=== PATIENT | female | born 1975 | race Caucasian/White ===

== ENCOUNTER 2020-11-08 15:26 | Outpatient (REF) | payer OTHER, SELFPAY | END 2020-11-08 15:27 | disposition home or self-care (01) | LOC: HO.LAB 15:26 | PROVIDERS: Visit Provider Internal Medicine | DX: Z20.822 Contact with and (suspected) exposure to COVID-19 (principal) | CPT/HCPCS: C9803; U0003; U0005 ==

== ENCOUNTER 2021-03-17 11:56 | Outpatient (REF) | payer OTHER, SELFPAY | END 2021-03-17 11:57 | disposition home or self-care (01) | LOC: HO.LAB 11:56 | PROVIDERS: Visit Provider Internal Medicine | DX: Z20.822 Contact with and (suspected) exposure to COVID-19 (principal) | CPT/HCPCS: C9803; U0003; U0005 ==

== ENCOUNTER 2023-07-23 11:42 | Emergency (ER) | payer MEDICAID, SELFPAY ==
--- NOTE | ~2023-07-23 | CT_ITS ---
EXAMINATION: CT ABDOMEN AND PELVIS WITH CONTRAST CLINICAL INFORMATION: Abdominal pain COMPARISON: None available. TECHNIQUE: Multidetector volumetric images were obtained from the superior aspect of the liver through the pubic symphysis following administration 85 mL of Omnipaque 350 intravenous contrast. Sagittal and coronal reformatted images were obtained on the technologist's workstation. Oral contrast: No This CT examination was performed using dose optimization techniques as appropriate, variously including the following: *Automated exposure control *Adjustment of mA and/or kV according to patient size (this includes techniques or standardized protocols for targeted exams where dose is matched to indication/reason for exam; i.e. extremities or head) *Use of iterative reconstruction technique DLP: 497 mGy-cm FINDINGS: LUNG BASES: The visualized lung bases are unremarkable. LIVER, GALLBLADDER, AND BILIARY TREE: The liver is normal in size, shape, and attenuation. No focal hepatic lesion or biliary ductal dilatation is present. The gallbladder is unremarkable with no evidence of radiopaque gallstones, gallbladder wall thickening, or obvious pericholecystic inflammatory changes. PANCREAS: Unremarkable. SPLEEN: Unremarkable. ADRENAL GLANDS: Unremarkable. KIDNEYS AND URETERS: The kidneys are normal in size, shape, and attenuation. No hydronephrosis, hydroureter, or calculi seen. No perinephric stranding. BLADDER: Unremarkable. GASTROINTESTINAL TRACT: Equivocal focal area of circumferential narrowing within the ascending colon just distal to the ileocecal valve. Although of low suspicion, recommend lower GI assessment for further evaluation if this has not been performed recently. ABDOMINAL WALL: No significant hernia is appreciated. LYMPH NODES: Normal. VASCULAR: Unremarkable. PELVIC VISCERA: Unremarkable. OSSEOUS STRUCTURES: Unremarkable. CT/CT abdomen pelvis w IV con IMPRESSION: 1. No specific findings to explain patient's symptoms. 2. Equivocal focal area of focal circumferential narrowing within the ascending colon just distal to the ileocecal valve. Although of low suspicion, recommend lower GI assessment for further evaluation if this has not been performed recently. Fleischner guidelines were followed.
[2023-07-23 11:45] VITALS: BP 188/103; PULSE 114; RESP 18; TEMP 37; O2SAT 99; BMI 27.1
--- NOTE | 2023-07-23 11:46 | ED.GENADULT ---
HPI - General Adult General Chief complaint: Abdominal Pain Stated complaint: abd pain, vomiting Time Seen by Provider: 07/23/23 11:50 Related Data Previous Rx's Medication Instructions Recorded ondansetron 4 mg disintegrating 4 mg PO TID PRN nausea and 07/23/23 tablet vomiting 5 days #10 tabs ondansetron 4 mg disintegrating 4 mg PO TID PRN nausea and 07/23/23 tablet vomiting 5 days #10 tabs Allergies Allergy/AdvReac Type Severity Reaction Status Date / Time clams Allergy Severe ANAPHYLAXIS Verified 07/23/23 14:45 insulin lispro [From HUMALOG] Allergy Unknown HIVES Verified 07/23/23 14:45 liraglutide [From VICTOZA] Allergy Unknown VOMIT Verified 07/23/23 14:45 DI[facility]A [facility] Allergy Intermediate HAYFEVER Uncoded 04/18/20 15:17 clam Allergy Unknown Unknown Uncoded 07/23/23 14:45 pollen Allergy Unknown Unknown Uncoded 07/23/23 14:45 salmon Allergy Unknown Unknown Uncoded 07/23/23 14:45 [facility] Social History Social History Smoked in Last 30 Days: No Use of substances other than those prescribed or required for medical reasons: Yes Substance Use Type: Marijuana Substance Use Frequency: Daily Any prior treatment program specific to substance use: No Advance Directives: No Advance Directives Information Provided: No Physical Exam ED Vital Signs: Vital Signs - 24 hr 07/23/23 11:45 07/23/23 14:00 Temperature 98.6 F 99.2 F Pulse Rate 114 H 76 Respiratory Rate 18 16 Blood Pressure 188/103 H 145/78 H Pulse Oximetry 99 100 Oxygen Delivery Method Room Air Room Air BMI result Body Mass Index 27.1 Course Course Course Narrative: RME performed by Radha Bell PA-C. Patient is a 48 year old assigned female at presenting to the emergency department with nausea and vomiting. Patient states that she is having hot and cold flashes, is on her period. Patient states that she as seen at [place] for this 2 days ago and was discharged. Patient states that she is dealing with high anxiety and H.Pylori. Labs and swabs ordered. Patient placed back in the waiting room pending room availability and results. Patient seen by Dr. Bowser who created his own note. Please refer to his note from 07/23/2023. Medications Administered Discontinued Medications Generic Name Dose Route Start Last Admin Trade Name Ziggy PRN Reason Stop Dose Admin Droperidol 0.625 mg 07/23/23 12:44 07/23/23 12:53 Droperidol 5 Mg/2 Ml Vial IVPUSH 07/23/23 12:45 0.625 mg ONCE ONE Administration Sodium Chloride 1,000 mls @ 999 mls/hr 07/23/23 12:45 07/23/23 14:50 Ns IV 07/23/23 13:45 Infused .Q1H1M SHERRY Infusion Sodium Chloride 1,000 mls @ 999 mls/hr 07/23/23 12:45 07/23/23 14:50 Ns IV 07/23/23 13:45 Infused .Q1H1M SHERRY Infusion Ketorolac Tromethamine 30 mg 07/23/23 12:38 07/23/23 12:53 Ketorolac Tromethamine 30 Mg/Ml Vial IVPUSH 07/23/23 12:39 30 mg ONCE ONE Administration Medical Decision Making Lab Data 07/23/23 12:16 07/23/23 12:16 Labs: Lab Results 07/23/23 07/23/23 07/23/23 Range/Units 12:16 12:17 12:47 WBC 13.2 H (4.8-10.8) X10*3/uL RBC 4.82 (4.20-5.50) X10*6/uL Hgb 12.8 (12.0-16.0) g/dl Hct 38.3 (37.0-47.0) % MCV 79.5 L (80.0-98.0) fL MCH 26.6 L (27.0-33.0) pg MCHC 33.4 (31.0-35.0) g/dl RDW 14.2 (11.0-16.0) % Plt Count 319 (160-400) X10*3/uL MPV 9.8 (9.4-12.3) fL Immature Gran % (Auto) 0.5 H (0.0-0.4) % Neut % (Auto) 81.2 H (45-73) % Lymph % (Auto) 12.0 L (20-40) % Archuleta % (Auto) 5.9 (2-11) % Eos % (Auto) 0.1 (0-4) % Baso % (Auto) 0.3 (0-2) % Lymph # (Auto) 1.6 (1.2-4.9) X10*3/uL [place] # (Auto) 0.8 (0.1-1.2) X10*3/uL Eos # (Auto) 0.0 (0.0-0.4) X10*3/uL Baso # (Auto) 0.0 (0.0-0.2) X10*3/uL Abs Immat Gran (auto) 0.07 H (0.00-0.03) X10*3/uL Absolute Neuts (auto) 10.7 H (2.0-8.3) x10*3/uL Absolute Nucleated RBC 0.000 (0.0-0.012) X10*3/uL Nucleated RBC % (auto) 0.0 (0.0-0.2) /100WBC PT 12.4 (11.1-13.3) SEC INR 1.0 (0.9-1.1) APTT 27.2 (26.0-36.4) SEC Sodium 137 (135-145) mmol/L Potassium 3.0 L (3.3-5.1) mmol/L Chloride 97 (96-108) mmol/L Carbon Dioxide 26 (22-29) mmol/L Anion Gap 17 (12-20) BUN 11 (9-16) mg/dL Creatinine 1.12 (0.5-1.4) mg/dL Estim Creat Clear Calc 60.2 Estimated GFR 52 Random Glucose 170 H (60-115) mg/dL Calcium 9.3 (8.4-10.2) mg/dL Magnesium 2.0 (1.6-2.6) mg/dL Total Bilirubin 1.0 (0.0-1.0) mg/dL AST 16 (5-31) U/L ALT 11 (0-31) U/L Alkaline Phosphatase 73 (39-117) U/L Total Protein 8.0 (6.5-8.0) g/dL Albumin 4.8 (3.5-5.0) g/dL Urine Color RED Urine Appearance Turbid Urine pH 6.5 (5.0-9.0) Ur Specific [place] 1.020 (1.005-1.025) Urine Protein 300 (3+) H (Neg-Trace) mg/dL Urine Glucose (UA) 250 H (Negative) mg/dL Urine Ketones Trace (Negative) mg/dL Urine Blood Large (3+) H (Negative) Urine Nitrite Positive H (Negative) Ur Leukocyte Esterase Moderate (2+) H (Negative) Urine RBC >20 H (0-2) /HPF Urine WBC 0-5 (0-5) /HPF Ur Squamous Epith Cells 0-2 (0-2) /HPF Urine Bacteria Trace (None Seen) Hyaline Casts 0-2 (0-2) /LPF Urine Test NEGATIVE (NEGATIVE) Urine Opiates Screen Not Detected (Not Detect) Urine Fentanyl Screen Not Detected (Not Detect) Ur Barbiturates Screen Not Detected (Not Detect) Ur Phencyclidine Scrn Not Detected (Not Detect) Ur Amphetamines Screen Not Detected (Not Detect) U Benzodiazepines Scrn Not Detected (Not Detect) Urine Cocaine Screen Not Detected (Not Detect) U Marijuana (THC) Screen POSITIVE H (Not Detect) Influenza Type A (PCR) NEGATIVE (Negative) Influenza Type B (PCR) NEGATIVE (Negative) RSV RNA Qual (PCR) NEGATIVE (Negative) SARS-CoV-2 RNA (RT-PCR) NEGATIVE (Negative) Discharge Plan Discharge Clinical Impression: Hyperemesis Patient Disposition: Home, Self-Care Instructions: Acute Nausea and Vomiting (ED) Additional Instructions: Please stop using marijuana. Prescriptions: New ondansetron 4 mg tablet,disintegrating 4 mg PO TID PRN (Reason: nausea and vomiting) 5 Days Qty: 10 0RF ondansetron 4 mg tablet,disintegrating 4 mg PO TID PRN (Reason: nausea and vomiting) 5 Days Qty: 10 0RF Referrals: Physician,Unknown J [Primary Care Provider] - 07/26/23 Stand Alone Forms: Work/School Release Interventions: ED Discharge Assessment Last Done: 07/23/23 15:34 Discharge Date/Time: 07/23/23 15:34
--- OUTSIDE RECORDS SUMMARY | 2023-07-23 12:21 | XMS_ITS | Continuity of Care Document ---
Author Name Unknown Organization [facility] Address [address] [place] [address]- Care Team Providers Care Enrollment Management Manager Name Role Phone Cece Lund Primary Care Physician [phone] Encounter [facility] [place] Date(s): 09/04/22 - 12/02/[address] [address]- Attending Physician: Heidy Chris MD Admitting Physician: Heidy Chris MD Allergies, Adverse Reactions, Alerts Substance Reaction Severity Status HumaLOG Hives Active Victoza Vomiting Active Medications ondansetron 4 mg oral tablet 1 tablet = 4 mg, By Mouth, Every 8 hours, PRN as needed for nausea/vomiting, # 9 tablet, 0 Refills,Maintenance, 09/24/22 10:57:00 EST, Tablet, Partial fill upon patient request if the prescription is for a schedule II opioid drug. Start Date: 09/24/22 Status: Ordered pantoprazole 40 mg oral delayed release tablet = 40 mg, By Mouth, Daily, # 30 tablet, 0 Refills, Maintenance, 09/12/22 10:01:00 EST, EC Tablet, 163, cm, 09/12/22 7:34:00 EST, Height, 64, kg, 09/09/22 17:13:00 EST, Dry Weight Start Date: 09/12/22 Stop Date: 10/12/22 Status: Ordered Remeron 15 mg oral tablet 1 tablet = 15 mg, By Mouth, Daily at bedtime, # 30 tablet, 0 Refills, Maintenance, 09/12/22 10:08:00 EST, Tablet, [facility], Partial fill upon patient request if the prescription is for a schedule II opioid drug., 163, cm, 09/12/22 7:34... Start Date: 09/12/22 Stop Date: 10/12/22 Status: Ordered Trulance 3 mg oral tablet 1 tablet = 3 mg, By Mouth, Daily, 0 Refills, Maintenance, 09/12/22 10:00:00 EST, Partial fill upon patient request if the prescription is for a schedule II opioid drug. Start Date: 09/12/22 Status: Ordered Ventolin HFA 108 mcg/inh inhalation aerosol with adapter 2 puffs, Inhalation, Every 4 hours, PRN for wheezing, prn, # 18 Gm, 0 Refills, Maintenance, 10/01/22 15:05:00 EST, Aerosol, Partial fill upon patient request if the prescription is for a schedule II opioid drug. Start Date: 10/01/22 Status: Ordered Problem List Condition Confirmation Course Effective Dates Status Health St atus Informant Asthma Confirmed Active Chronic vomiting Confirmed Active Dysphagia Confirmed Active Diabetes mellitus, type II, insulin dependent Confirmed Active Nasal congestion Confirmed Active STEVE (obstructive sleep apnea) Confirmed Active Seasonal allergies Confirmed Active Social History Social History Type Response Smoking Status Current some day smo ker; Type: Cigarettes entered on: 04/14/17 Sex Patient Care team information Care Team Personnel Name: Aaron Gonzalez RN Position: [facility] RN Member Role: Primary Care Nurse Name: Damon Whitaker RN Position: [facility] RN Member Role: Primary Care Nurse Name: Zaida Noriega RN Position: S RN Member Role: Primary Care Nurse Name: Idania Sagastume RN Position: [facility] RN Supv Member Role: Primary Care Nurse Name: Cece Lund Position: [facility] Associate Professional Member Role: PCP Address: Address: [address] [place] [address] Name: Zoë Hastings Position: S Outreach Member Role: Lifetime Consulting Physician Name: Renee Mckeon RN Position: S RN Supv Member Role: Primary Care Nurse Name: Pamela Castellano RN Position: S RN Member Role: Primary Care Nurse Name: Vidya Zhu RN Position: S RN Member Role: Primary Care Nurse Name: Patricia Curtis RN Position: S RN Member Role: Primary Care Nurse Name: Jeanne Ray Position: S Outreach Member Role: Lifetime Consulting Physician Care Team Related Persons Name: JJ FLETCHER Address: [place] [address] Name: AARON WIN Address: [place] [address] Name: CHARLENE TANG Address: home [address] [place] [address] Name: CORTEZ JOSUE Address: [place] [address] Name: ANGELIQUE BROWN Address: [place] [address]
--- OUTSIDE RECORDS SUMMARY | 2023-07-23 12:21 | XMS_ITS | Continuity of Care Document ---
Author Name Unknown Organization [facility] Address [address] [place] [address]- Care Team Providers Care Plastic Injection Mold Maker Name Role Phone Cece Lund Primary Care Physician Encounter [facility] [place] [place] Date(s): 07/01/21 - 07/31/21 [facility] [address] [place] [id number] Allergies, Adverse Reactions, Alerts Substance Reaction Severity Status HumaLOG Hives Active Victoza Vomiting Active Medications albuterol CFC free 90 mcg/inh inhalation aerosol 2, puffs, Inhalation, 4 times a day, PRN, # 1 each, Refills 3, Tot. Refills 3, Maintenance, 11/19/20 9:39:00 EDT, Aerosol, Route to Pharmacy Electronically, [id number], [facility], 162, cm, 11/19/20 8:17:00 EDT,... Start Date: 11/19/20 Stop Date: 03/19/21 Status: Ordered Flonase 50 mcg/inh nasal spray 1 sprays, Nares, Both, 2 times a day, # 16 Gm, 0 Refills, Maintenance, 10/11/18 9:43:36 EDT, [place] Start Date: 10/11/18 Status: Ordered Insulin Lispro 2-10 units, Subcutaneous Injection, 3 times a day before meals, << Sliding Scale Comments >> 150 - 199 2 units Call if less than 100 200 - 249 4 units 250 - 299 6 units 300 - 349 8 units 350 - 399 10 units Call if greater than 400 <... Start Date: 11/19/20 Status: Ordered Lantus Solostar Pen 100 units/mL subcutaneous solution = 25 units, Subcutaneous Injection, Daily at bedtime, # 10 mL, 0 Refills, Maintenance, 02/20/20 11:38:00 EDT, Solution, [facility] #[id number], 162, cm, 02/20/20 8:43:00 EDT, Height, 71.85, kg, 02/19/20 2:51:00 EDT, Dry Weight Start Date: 02/20/20 Status: Ordered Milk of Magnesia 8% oral suspension 30 mL = 2.4 Gm, By Mouth, Daily at bedtime, PRN for constipation, # 300 mL, 0 Refills, Maintenance,11/19/20 9:40:00 EDT, Suspension, [facility], Partial fill upon patient request if the prescription is for a schedule II opioid drug., 16... Start Date: 11/19/20 Status: Ordered ondansetron 4 mg oral tablet 1 tablet = 4 mg, By Mouth, Every 8 hours, PRN as needed for nausea/vomiting, # 10 tablet, 0 Refills, Maintenance, 04/20/20 16:58:00 EDT, Tablet, [facility] #[id number], 162, cm, 03/07/20 15:35:00 EDT, Height, 71.85, kg, 02/19/20 2:51:00 EDT, Dry... Start Date: 04/20/20 Status: Ordered Singulair By Mouth, Daily, 0 Refills, Maintenance, 04/14/17 10:42:53 Start Date: 04/14/17 Status: Ordered Problem List Condition Effective Dates Status Health Status Inform ant Asthma(Confirmed) Active Chronic vomiting(Confirmed) Active Dysphagia(Confirmed) Active Diabetes mellitus, type II, insulin dependent(Confirmed) Active Seasonal allergies(Confirmed) Active Social History Social History Type Response Smoking Status Current some day smo ker; Type: Cigarettes entered on: 04/14/17 Sex
--- OUTSIDE RECORDS SUMMARY | 2023-07-23 12:21 | XMS_ITS | Continuity of Care Document ---
Author Name Unknown Organization [facility] Address [address] [place] [address]- Care Team Providers Care Sand Miller Name Role Phone Cece Lund Primary Care Physician Encounter [facility] [place] Date(s): 09/29/21 - 10/29/[address] [address] Attending Physician: Marbella Watkins Admitting Physician: AdmtrMarbella Referring Physician: AdmtrMarbella Allergies, Adverse Reactions, Alerts Substance Reaction Severity Status HumaLOG Hives Active Victoza Vomiting Active Medications albuterol CFC free 90 mcg/inh inhalation aerosol 2, puffs, Inhalation, 4 times a day, PRN, # 1 each, Refills 3, Tot. Refills 3, Maintenance, 11/19/20 9:39:00 EDT, Aerosol, Route to Pharmacy Electronically, [id number], [facility], 162, cm, 11/19/20 8:17:00 EDT,... Start Date: 11/19/20 Stop Date: 03/19/21 Status: Ordered Diflucan 150 mg oral tablet 1 tablet = 150 mg, By Mouth, Once, Take on WednesdayAugust 25, # 1 tablet, 0 Refills, Soft Stop, 08/22/21 23:40:00 EST, Tablet, [facility][id number], Partial fill upon patient request if the prescription is for a schedule II opioid drug., 163,... Start Date: 08/22/21 Status: Ordered erythromycin ethylsuccinate 200 mg/5 ml oral suspension 5 mL = 200 mg, By Mouth, Every 8 hours, for 10 days, # 150 mL, 0 Refills, Acute 11/08/21 20:36:00 EDT, 10/29/21 20:36:00 EDT, Suspension, [facility][id number], Partial fill upon patient request if the prescription is for a schedule II opioid dr... Start Date: 10/29/21 Stop Date: 11/08/21 Status: Ordered Flonase 50 mcg/inh nasal spray 1 sprays, Nares, Both, 2 times a day, # 16 Gm, 0 Refills, Maintenance, 10/11/18 9:43:36 EDT, [place] Start Date: 10/11/18 Status: Ordered Insulin Lispro 2-10 units, Subcutaneous Injection, 3 times a day before meals, << Sliding Scale Comments >> 150 - 199 2 units Call if less than 100 200 - 249 4 units 250 - 299 6 units 300 - 349 8 units 350 - 399 10 units Call if greater than 400 <... Start Date: 11/19/20 Status: Ordered ipratropium nasal 21 mcg/inh spray 1 sprays, Nares, Both, Daily at bedtime, # 30 mL, 1 Refills, Maintenance, 09/29/21 12:07:00 EST, [facility] #[id number], Partial fill upon patient request if the prescription is for a schedule II opioid drug., 1 sprays Nares, Both Daily at bedtim... Start Date: 09/29/21 Status: Ordered Lantus Solostar Pen 100 units/mL subcutaneous solution = 25 units, Subcutaneous Injection, Daily at bedtime, # 10 mL, 0 Refills, Maintenance, 02/20/20 11:38:00 EDT, Solution, [facility] #[id number], 162, cm, 02/20/20 8:43:00 EDT, Height, 71.85, kg, 02/19/20 2:51:00 EDT, Dry Weight Start Date: 02/20/20 Status: Ordered Milk of Magnesia 8% oral suspension 30 mL = 2.4 Gm, By Mouth, Daily at bedtime, PRN for constipation, # 300 mL, 0 Refills, Maintenance,11/19/20 9:40:00 EDT, Suspension, [facility], Partial fill upon patient request if the prescription is for a schedule II opioid drug., 16... Start Date: 11/19/20 Status: Ordered ondansetron 4 mg oral tablet 1 tablet = 4 mg, By Mouth, Every 8 hours, PRN as needed for nausea/vomiting, # 10 tablet, 0 Refills, Maintenance, 04/20/20 16:58:00 EDT, Tablet, [facility][id number], 162, cm, 03/07/20 15:35:00 EDT, Height, 71.85, kg, 02/19/20 2:51:00 EDT, Dry... Start Date: 04/20/20 Status: Ordered Singulair By Mouth, Daily, 0 Refills, Maintenance, 04/14/17 10:42:53 Start Date: 04/14/17 Status: Ordered Problem List Condition Effective Dates Status Health Status Inform ant Asthma(Confirmed) Active Chronic vomiting(Confirmed) Active Dysphagia(Confirmed) Active Diabetes mellitus, type II, insulin dependent(Confirmed) Active Nasal congestion(Confirmed) Active STEVE (obstructive sleep apnea)(Confirmed) Active Seasonal allergies(Confirmed) Active Social History Social History Type Response Smoking Status Current some day smo ker; Type: Cigarettes entered on: 04/14/17 Sex
--- OUTSIDE RECORDS SUMMARY | 2023-07-23 12:21 | XMS_ITS | Continuity of Care Document ---
Author Name Unknown Organization [facility] Address [address] [place] [address]- Care Team Providers Care Founder And Chief Technical Officer Name Role Phone Cece Lund Primary Care Physician [place] [facility] [place]s): 02/11/22 - 03/13/22 [facility] [address] [place] [address] Attending Physician: Admtr, Ar8 Admitting Physician: Admtr, Ar8 Referring Physician: Admtr, Ar8 Allergies, Adverse Reactions, Alerts Substance Reaction Severity Status HumaLOG Hives Active Victoza Vomiting Active Medications albuterol CFC free 90 mcg/inh inhalation aerosol 2, puffs, Inhalation, 4 times a day, PRN, # 1 each, Refills 3, Tot. Refills 3, Maintenance, 11/19/20 9:39:00 EDT, Aerosol, Route to Pharmacy Electronically, [id number], [facility], 162, cm, 11/19/20 8:17:00 EDT,... Start Date: 11/19/20 Stop Date: 03/19/21 Status: Ordered ipratropium nasal 21 mcg/inh spray 1 sprays, Nares, Both, Daily at bedtime, # 30 mL, 1 Refills, Maintenance, 09/29/21 12:07:00 [id number], Partial fill upon patient request if the prescription is for a schedule II opioid drug., 1 sprays Nares, Both Daily at bedtim... Start Date: 09/29/21 Status: Ordered metoclopramide 5 mg oral tablet TAKE 1 TABLET BY MOUTH FOUR TIMES DAILY Start Date: 12/16/21 Status: Ordered Milk of Magnesia 8% oral suspension 30 mL = 2.4 Gm, By Mouth, Daily at bedtime, PRN for constipation, # 300 mL, 0 Refills, Maintenance,11/19/20 9:40:00 EDT, Suspension, [facility], Partial fill upon patient request if the prescription is for a schedule II opioid drug., 16... Start Date: 11/19/20 Status: Ordered ondansetron 4 mg oral tablet 1 tablet = 4 mg, By Mouth, Every 8 hours, PRN as needed for nausea/vomiting, # 10 tablet, 0 Refills, Maintenance, 04/20/20 16:58:00 EDT, Tablet, [facility][id number], 162, cm, 03/07/20 15:35:00 EDT, Height, 71.85, kg, 02/19/20 2:51:00 EDT, Dry... Start Date: 04/20/20 Status: Ordered prochlorperazine 25 mg rectal suppository UNWRAP AND INSERT 1 SUPPOSITORY RECTALLY TWICE DAILY NEEDED FOR NAUSEA OR VOMITING Start Date: 12/16/21 Status: Ordered Protonix 20 mg oral delayed release tablet 2 tablet = 40 mg, By Mouth, Daily, 0 Refills, Maintenance, 12/15/21 19:49:00 EDT Start Date: 12/15/21 Status: Ordered Singulair By Mouth, Daily, 0 [...]
--- OUTSIDE RECORDS SUMMARY | 2023-07-23 12:21 | XMS_ITS | Continuity of Care Document ---
Author Name Unknown Organization [facility] Address [address] [place] [address]- Care Team Providers Care Agility Instructor Name Role Phone Cece Lund Primary Care Physician Encounter [facility] [place] [facility] R [id number] Date(s): 02/18/20 - 02/20/[address] [address]- [facility] Encounter Diagnosis DKA (diabetic ketoacidosis)(Final) - 02/18/20 Discharge Disposition: A-D/C Home Attending Physician: Mariela Canales MD Admitting Physician: Elham Coker DO Referring Physician: Not on Staff, Referring MD Allergies, Adverse Reactions, Alerts Substance Reaction Severity Status HumaLOG Hives Active Victoza Vomiting Active Medications albuterol 0.083% inhalation solution 3 mL = 2.5 mg, Inhalation, Every 6 hours, # 60 each, 0 Refills, Maintenance, 03/10/16 16:28:31, Solution Start Date: 03/10/16 Status: Ordered Flonase 50 mcg/inh nasal spray 1 sprays, Nares, Both, 2 times a day, # 16 Gm, 0 Refills, Maintenance, 10/11/18 9:43:36 EDT, [place] Start Date: 10/11/18 Status: Ordered Lantus Solostar Pen 100 units/mL subcutaneous solution = 60 units, Subcutaneous Injection, Daily at bedtime, # 10 mL, 0 Refills, Maintenance, 02/20/20 11:38:00 EDT, Solution, [facility][id number], 162, cm, 02/20/20 8:43:00 EDT, Height, 71.85, kg, 02/19/20 2:51:00 EDT, Dry Weight Start Date: 02/20/20 Status: Ordered NovoLOG FlexPen 100 units/mL subcutaneous solution See Instructions, Subcutaneous Injection, BS 100-150 5 units 151-200 10 unit 201-250 15 units 251-300 20 units 301-350 25 units 351-400 30 units 401-450 35 units, Maintenance, 02/19/20 3... Start Date: 02/19/20 Status: Ordered Singulair By Mouth, Daily, 0 Refills, Maintenance, 04/14/17 10:42:53 Start Date: 04/14/17 Status: Ordered Problem List Condition Effective Dates Status Health Status Inform ant Chronic vomiting(Confirmed) Active Dysphagia(Confirmed) Active Diabetes mellitus, type II, insulin dependent(Confirmed) Active DKA, type 1, not at goal(Confirmed) Active DKA, type 1, not at goal(Confirmed) Active Vital Signs Most recent to oldest [Reference Range]: 1 2 3 Height 162 cm (02/20/20 7:45 AM) 162 cm (02/20/20 7:44 AM) 162 cm (02/20/20 12:11 AM) Weight 71.85 kg (02/19/20 2:39 AM) 71.3 kg (02/18/20 1:59 PM) Oxygen Saturation [94-100 %] 100 % (02/20/20 7:45 AM) 100 % (02/20/20 7:44 AM) 99 % (02/20/20 12:11 AM) Pulse Rate [55-90 bpm] 81 bpm (02/20/20 7:45 AM) 81 bpm (02/20/20 7:44 AM) 79 bpm (02/20/20 12:11 AM) Body Mass Index [18.5-24.99] 27.38 *H* (02/19/20 2:39 AM) 27.17 *H* (02/18/20 1:59 PM) Blood Pressure [90-138/55-84 mm Hg] 108/73mm Hg (02/20/20 7:45 AM) 108/73mm Hg (02/20/20 7:44 AM) 120/63mm Hg (02/20/20 12:11 AM) Respiratory Rate [16-30 br/min] 18 br/min (02/20/20 7:45 AM) 18 br/min (02/20/20 7:44 AM) 18 br/min (02/20/20 12:46 AM) Temperature [96.8-100.4 DegF] 98.4 DegF (02/20/20 7:45 AM) 98.4 DegF (02/20/20 7:44 AM) 97.8 DegF (02/20/20 12:11 AM) Liters per Minute 0 L/min (02/18/20 6:47 PM) 0 L/min (02/18/20 4:19 PM) Mode of Delivery (Oxygen) Room air (02/20/20 7:45 AM) Room air (02/20/20 7:44 AM) Room air (02/20/20 12:11 AM) Blood pressure sites Arm, left (02/20/20 7:44 AM) Arm, right (02/20/20 12:11 AM) Arm, right (02/19/20 7:47 PM) Temperature Route Oral (02/20/20 7:45 AM) Oral (02/20/20 7:44 AM) Oral (02/20/20 12:11 AM) Dry Weight 71.85 kg (02/19/20 2:39 AM) 71.3 kg (02/18/20 1:59 PM) Weight Obtained Via Standing scale (02/19/20 2:39 AM) Standing scale (02/18/20 1:59 PM) Dry Weight Obtained Via Standing scale (02/18/20 1:59 PM) Social History Social History Type Response Smoking Status Current some day smo ker; Type: Cigarettes entered on: 04/14/17 Sex
--- OUTSIDE RECORDS SUMMARY | 2023-07-23 12:21 | XMS_ITS | Continuity of Care Document ---
Author Name Unknown Organization [facility] ter Address [address] [place] [address]- Care Team Providers Care Steamer Blocker Name Role Phone Cece Lund Primary Care Physician [phone] [place] [facility] [place] Date(s): 11/29/21 - 01/04/[address] [address] Attending Physician: Keira Sagastume MD Admitting Physician: Keira Sagastume MD Referring Physician: Keira Sagastume MD Allergies, Adverse Reactions, Alerts Substance Reaction Severity Status HumaLOG Hives Active Victoza Vomiting Active Medications albuterol CFC free 90 mcg/inh inhalation aerosol 2, puffs, Inhalation, 4 times a day, PRN, # 1 each, Refills 3, Tot. Refills 3, Maintenance, 11/19/20 9:39:00 EDT, Aerosol, Route to Pharmacy Electronically, [id number], [facility], 162, cm, 11/19/20 8:17:00 EDT,... Start Date: 11/19/20 Stop Date: 03/19/21 Status: Ordered ipratropium nasal 21 mcg/inh spray 1 sprays, Nares, Both, Daily at bedtime, # 30 mL, 1 Refills, Maintenance, 09/29/21 12:07:00 [id number] Partial fill upon patient request if the [...] mL, 0 Refills, Maintenance,11/19/20 9:40:00 EDT, Suspension, [facility], Partial fill upon patient request if the prescription is for a schedule II opioid drug., 16... Start Date: 11/19/20 Status: Ordered ondansetron 4 mg oral tablet 1 tablet = 4 mg, By Mouth, Every 8 hours, PRN as needed for nausea/vomiting, # 10 tablet, 0 Refills, Maintenance, 04/20/20 16:58:00 EDT, Tablet, [facility] #[id number], 162, cm, 03/07/20 15:35:00 EDT, Height, 71.85, [...]
--- OUTSIDE RECORDS SUMMARY | 2023-07-23 12:21 | XMS_ITS | Continuity of Care Document ---
Author Name Unknown Organization [facility] Address [address] [place] [address]- Care Team Providers Care Video Journalist Name Role Phone Cece Lund Primary Care Physician [phone] En[place] [facility] [place] Date(s): 11/19/21 - 03/19/[address] [address]- Attending Physician: Keira Sagastume MD Admitting Physician: Keira Sagastume MD Referring Physician: Cece Lund Allergies, Adverse Reactions, Alerts Substance Reaction Severity Status HumaLOG Hives Active Victoza Vomiting Active Medications albuterol CFC free 90 mcg/inh inhalation aerosol 2, puffs, Inhalation, 4 times a day, PRN, # 1 each, Refills 3, Tot. Refills 3, Maintenance, 11/19/20 9:39:00 EDT, Aerosol, Route to Pharmacy Electronically, [id number], [facility], 162, cm, 11/19/20 8:17:00 EDT,... Start Date: 11/19/20 Stop Date: 03/19/21 Status: Ordered ipratropium nasal 21 mcg/inh spray 1 sprays, Nares, Both, Daily at bedtime, # 30 mL, 1 Refills, Maintenance, 09/29/21 12:07:00 [facility], [facility] #[id number], Partial fill upon patient request if the [...] mL, 0 Refills, Maintenance,11/19/20 9:40:00 EDT, Suspension, [facility], Partial fill upon patient request if the prescription is for a schedule II opioid drug., 16... Start Date: 11/19/20 Status: Ordered ondansetron 4 mg oral tablet 1 tablet = 4 mg, By Mouth, Every 8 hours, PRN as needed for nausea/vomiting, # 10 tablet, 0 Refills, Maintenance, 04/20/20 16:58:00 EDT, Tablet, [facility] #[id number], 162, cm, 03/07/20 15:35:00 EDT, Height, 71.85, [...]
--- OUTSIDE RECORDS SUMMARY | 2023-07-23 12:21 | XMS_ITS | Continuity of Care Document ---
Author Name Unknown Organization [facility] Address [address] [place] [address]- Care Team Providers Care Surface Supervisor Name Role Phone Cece Lund Primary Care Physician Encounter [facility] [place] Date(s): 01/12/23 - 01/12/[address] [address]- Discharge Disposition: A-D/C Home Attending Physician: Angelica Terrazas MD Admitting Physician: Angelica Terrazas MD Referring Physician: Angelica Terrazas MD Allergies, Adverse Reactions, Alerts Substance Reaction Severity Status HumaLOG Hives Active Other Food Allergy yeast (amy) Active Other Environmental Allergy cockroaches tegaderm ashweed and pigweed Active Victoza Vomiting Active Medications ondansetron 4 [...] 0 Refills, Maintenance, 09/12/22 10:08:00 EST, Tablet, [facility], Partial fill upon patient [...] apnea) Confirmed Active Seasonal allergies Confirmed Active Vital Signs Most recent to oldest [Reference Range]: 1 2 3 Height 162 cm (01/12/23 10:50 AM) Weight 66.4 kg (01/12/23 10:50 AM) Oxygen Saturation [94-100 %] 100 % (01/12/23 1:15 PM) 100 % (01/12/23 1:10 PM) 100 % (01/12/23 1:05 PM) Pulse Rate [55-90 bpm] 90 bpm (01/12/23 10:50 AM) Body Mass Index [18.5-24.99 kg/m2] 25.3 kg/m2 *H* (01/12/23 10:50 AM) Blood Pressure [90-138/55-84 mm Hg] 145/87mm Hg *H* (01/12/23 1:25 PM) 165/96mm Hg *H* (01/12/23 1:15 PM) 158/95mm Hg *H* (01/12/23 1:10 PM) Respiratory Rate [16-30 br/min] 16 br/min (01/12/23 1:25 PM) 14 br/min *L* (01/12/23 1:15 PM) 20 br/min (01/12/23 1:10 PM) Temperature [96.8-100.4 DegF] 98.8 DegF (01/12/23 10:50 AM) Liters per Minute 5 L/min (01/12/23 12:45 PM) Mode of Delivery (Oxygen) Room air (01/12/23 1:50 PM) Room air (01/12/23 1:25 PM) Room air (01/12/23 1:15 PM) Blood pressure sites Arm, left (01/12/23 12:45 PM) Arm, left (01/12/23 10:50 AM) Temperature Route Temporal (01/12/23 10:50 AM) Dry Weight 66.4 kg (01/12/23 10:50 AM) Dry Weight Obtained Via Standing scale (01/12/23 10:50 AM) Social History Social History Type Response Smoking Status Current some day smo ker; Type: Cigarettes entered on: 04/14/17 Sex Endoscopy study * Event Display: GG EGD Please click on pdf link to open report Patient Care team information Care Team Personnel Name: Aaron Gonzalez RN Position: [facility] RN Member Role: Primary Care Nurse Name: Damon Whitaker RN Position: [facility] RN Member Role: Primary Care Nurse Name: Zaida Noriega RN Position: [facility] ED RN W/OE and Tasks Member Role: Primary Care Nurse Name: Idania Sagastume RN Position: [facility] RN Supv Member Role: Primary Care Nurse Name: Cece Lund Position: [facility] Associate Professional Member Role: PCP Address: Address: [address] [place] [address] Name: Zoë Hastings Position: S Outreach Member Role: Lifetime Consulting Physician Name: Renee Mckeon RN Position: [facility] RN Supv Member Role: Primary Care Nurse Name: Pamela Castellano RN Position: S RN Member Role: Primary Care Nurse Name: Vidya Zhu RN Position: S RN Member Role: Primary Care Nurse Name: Patricia Curtis RN Position: S RN Member Role: Primary Care Nurse Name: Jeanne Ray Position: S Outreach Member Role: Lifetime Consulting Physician Care Team Related Persons Name: JJ FLETCHER Address: [place] [address] Name: AARON WIN Address: [place] [address] Name: CHARLENE TANG Address: home [address] [place] [address] Name: CORTEZ JOSUE Address: [place] [address] Name: ANGELIQUE BROWN Address: [place] [address]
--- OUTSIDE RECORDS SUMMARY | 2023-07-23 12:21 | XMS_ITS | Continuity of Care Document ---
Author Name Unknown Organization [facility] Address [address] [place] [address]- Care Team Providers Care Train Engineer Name Role Phone Cece Lund Primary Care Physician [phone] Encounter [facility] [place] Date(s): 09/18/20 - 01/16/21 [facility] [address] [place] [id number] Attending Physician: Jacinto Valiente MD Admitting Physician: Jacinto Valiente MD Referring Physician: Cece Lund Allergies, Adverse Reactions, Alerts Substance Reaction Severity Status HumaLOG Hives Active Victoza Vomiting Active Medications albuterol CFC free 90 mcg/inh inhalation aerosol 2, puffs, Inhalation, 4 times a day, PRN, # 1 each, Refills 3, Tot. Refills 3, Maintenance, 11/19/20 9:39:00 EDT, Aerosol, Route to Pharmacy Electronically, [id number], [facility], 162, cm, 11/19/20 8:17:00 EDT,... Start Date: 11/19/20 Stop Date: 03/19/21 Status: Ordered ClearLax oral powder for reconstitution = 17 Gm, By Mouth, Daily, # 527 Gm, 1 Refills, Maintenance, 11/19/20 9:34:00 EDT, [facility], Partial fill upon patient request if the prescription is for a schedule II opioid drug., 17Gm By Mouth Daily, 162, cm, 11/19/20 8:17:00 EDT, H... Start Date: 11/19/20 Status: Ordered Flonase 50 mcg/inh nasal spray 1 sprays, Nares, Both, 2 times a day, # 16 Gm, 0 Refills, Maintenance, 10/11/18 9:43:36 EDT, [place] Start Date: 10/11/18 Status: Ordered Insulin Lispro [...] 0 Refills, Maintenance, 02/20/20 11:38:00 EDT, Solution, [facility] #[id number], 162, cm, 02/20/20 8:43:00 EDT, Height, 71.85, kg, 02/19/20 2:51:00 EDT, Dry Weight Start Date: 02/20/20 Status: Ordered metroNIDAZOLE 0.75% topical gel 1 application, Topically, Daily, # 45 Gm, 0 Refills, Maintenance, 04/20/20 16:57:00 EDT, Gel, [facility] #[id number], 1 application Topically Daily,x5 days, 162, cm, 03/07/20 15:35:00 EDT, Height, 71.85, kg, 02/19/20 2:51:00 EDT, Dry Weight Start Date: 04/20/20 Stop Date: 04/25/20 Status: Ordered Milk of Magnesia 8% oral suspension 30 mL = 2.4 Gm, By Mouth, Daily at bedtime, PRN for constipation, # 300 mL, 0 Refills, Maintenance,11/19/20 9:40:00 EDT, Suspension, [facility], Partial fill upon patient request if the prescription is for a schedule II opioid drug., 16... Start Date: 11/19/20 Status: Ordered ondansetron 4 mg oral tablet 1 tablet = 4 mg, By Mouth, Every 8 hours, PRN as needed for nausea/vomiting, # 10 tablet, 0 Refills, Maintenance, 04/20/20 16:58:00 EDT, Tablet, [facility] #[id number], 162, cm, 03/07/20 15:35:00 EDT, Height, 71.85, [...]
--- OUTSIDE RECORDS SUMMARY | 2023-07-23 12:21 | XMS_ITS | Continuity of Care Document ---
Author Name Unknown Organization [facility] Address [address] [place] [address]- Care Team Providers Care Supervisor Electric Name Role Phone Cece Lund Primary Care Physician [phone] [id number] Date[facility] 06/18[facility] - 10/13/[address] [address] Attending Physician: Keira Sagastume MD Admitting Physician: [...] Gm, 0 Refills, Maintenance, 10/11/18 9:43:36 EDT, [place] Start Date: 10/11/18 Status: Ordered Lantus Solostar Pen 100 units/mL subcutaneous solution = 60 units, Subcutaneous Injection, Daily at bedtime, # 10 mL, 0 Refills, Maintenance, 02/20/20 11:38:00 EDT, Solution, [facility] #[id number], 162, cm, 02/20/20 8:43:00 EDT, Height, 71.85, kg, 02/19/20 2:51:00 EDT, Dry Weight Start Date: 02/20/20 Status: Ordered metroNIDAZOLE 0.75% topical gel 1 application, Topically, Daily, # 45 Gm, 0 Refills, Maintenance, 04/20/20 16:57:00 EDT, Gel, [facility][id number], 1 application Topically Daily,x5 days, 162, cm, 03/07/20 15:35:00 EDT, Height, 71.85, kg, 02/19/20 2:51:00 EDT, Dry Weight Start Date: 04/20/20 Stop Date: 04/25/20 Status: Ordered NovoLOG FlexPen 100 units/mL subcutaneous solution See Instructions, Subcutaneous Injection, BS 100-150 5 units 151-200 10 unit 201-250 15 units 251-300 20 units 301-350 25 units 351-400 30 units 401-450 35 units, Maintenance, 02/19/20 3... Start Date: 02/19/20 Status: Ordered ondansetron 4 mg oral tablet 1 tablet = 4 mg, By Mouth, Every 8 hours, PRN as needed for nausea/vomiting, # 10 tablet, 0 Refills, Maintenance, 04/20/20 16:58:00 EDT, Tablet, [facility] #[id number], 162, cm, 03/07/20 15:35:00 EDT, Height, 71.85, kg, 02/19/20 2:51:00 EDT, Dry... Start Date: 04/20/20 Status: Ordered Singulair By Mouth, Daily, 0 Refills, Maintenance, 04/14/17 10:42:53 Start Date: 04/14/17 Status: Ordered Problem List Condition Effective Dates Status Health Status Inform ant Asthma(Confirmed) Active Chronic vomiting(Confirmed) Active Dysphagia(Confirmed) Active Diabetes mellitus, type II, insulin dependent(Confirmed) Active Seasonal allergies(Confirmed) Active DKA, type 1, not at goal(Confirmed) Active DKA, type 1, not at goal(Confirmed) Active Social History Social History Type Response Smoking Status Current some day smo ker; Type: Cigarettes entered on: 04/14/17 Sex
--- OUTSIDE RECORDS SUMMARY | 2023-07-23 12:21 | XMS_ITS | Continuity of Care Document ---
Author Name Unknown Organization [facility] Address [address] [place] [address]- Care Team Providers Care Venue Coordinator Name Role Phone Cece Lund Primary Care Physician Encounter [facility] [place] Date(s): 12/11/19 - 01/10/20 [facility] [address] [address]- [facility] Attending Physician: Roland, [id number] Admitting Physician: Admtr, [id number] Referring Physician: Admtr, Ar8 Allergies, Adverse Reactions, Alerts Substance Reaction Severity Status HumaLOG Hives Active Victoza Vomiting Active Medications albuterol 0.083% inhalation solution 3 mL = 2.5 mg, Inhalation, Every 6 hours, # 60 each, 0 Refills, Maintenance, 03/10/16 16:28:31, Solution Start Date: 03/10/16 Status: Ordered Alcohol Wipes See Instructions, # 1 box, Maintenance, For use when checking blood glucose, 09/12/12 15:25:02 Start Date: 09/12/12 Status: Ordered Azithromycin 5 Day Dose Pack 250 mg oral tablet 1 pack/packet, By Mouth, Once, as directed on package labeling, # 6 tablet, 0 Refills, Soft Stop, 03/10/16 15:17:47, Tablet Start Date: 03/10/16 Status: Ordered Flonase 50 mcg/inh nasal spray 1 sprays, Nares, Both, 2 times a day, # 16 Gm, 0 Refills, Maintenance, 10/11/18 9:43:36 EDT, [place] [facility] Start Date: 10/11/18 Status: Ordered Freestyle Lite Lancets See Instructions, # 200 each, Refills 5, Tot. Refills 5, Maintenance, use as directed for Diabetes Mellitus, 09/12/12 15:24:14 Start Date: 09/12/12 Stop Date: 03/11/13 Status: Ordered Freestyle Lite Monitor See Instructions, # 1 each, Refills 5, Tot. Refills 5, Maintenance, use as directed for Diabetes Mellitus, 09/12/12 15:24:29 Start Date: 09/12/12 Stop Date: 03/11/13 Status: Ordered Freestyle Lite Test Strips See Instructions, # 200 each, Tot. Refills 5, Maintenance, use as directed for Diabetes Mellitus, 09/12/12 15:24:38 Start Date: 09/12/12 Stop Date: 10/12/12 Status: Ordered Humulin 70/30 human recombinant subcutaneous injection Subcutaneous Infusion, 0 Refills, Maintenance, 04/14/17 10:40:58 Start Date: 04/14/17 Status: Ordered Humulin R Inj Subcutaneous Infusion, 0 Refills, Maintenance, 04/14/17 10:41:13 Start Date: 04/14/17 Status: Ordered ibuprofen 600 mg oral tablet 600 mg, 1, tablet, By Mouth, Every 6 hours, # 40 tablet, Refills 0, Tot. Refills 0, Maintenance, 01/20/16 11:00:17, [facility] Start Date: 01/20/16 Stop Date: 01/30/16 Status: Ordered ibuprofen 600 mg oral tablet 600 mg, 1, tablet, By Mouth, Every 6 hours, with food or milk, # 56 tablet, Refills 0, Tot. Refills0, Maintenance, 02/25/17 15:41:27, Print Requisition Start Date: 02/25/17 Stop Date: 03/11/17 Status: Ordered insulin regular human recombinant 100 u/ml injectable injection See Instructions, Use sliding scale 12-24 units before a meal, # 15 mL, 0 Refills, Maintenance, 08/24/15 9:56:35, Solution, sliding scale comments give 20 - 30 min before meals; <100 = no insulin with meal; 100 - 150 = 12 units; 151 - 250 =... Start Date: 08/24/15 Status: Ordered Insulin Syringes See Instructions, # 1 box, Maintenance, For use with administrating insulin., 09/12/12 15:25:10 Start Date: 09/12/12 Status: Ordered Lantus Solostar Pen 100 units/mL subcutaneous solution = 60 units, Subcutaneous Injection, Daily at bedtime, # 10 mL, 0 Refills, Maintenance, 08/24/15 9:55:30, Solution, 60 units Subcutaneous Injection Daily at bedtime Start Date: 08/24/15 Status: Ordered NovoLog Mix 70/30 % Inj Subcutaneous Infusion, 0 Refills, Maintenance, 06/09/16 1:29:48 Start Date: 06/09/16 Status: Ordered Percocet-5/325 325 mg-5 mg oral tablet 1, tablet, By Mouth, Every 6 hours, Refills 0, Tot. Refills 0, Maintenance, 04/14/17 10:42:12 Start Date: 04/14/17 Status: Ordered Percocet-5/325 325 mg-5 mg oral tablet 1, tablet, By Mouth, Every 4 hours, PRN, Refills 0, Tot. Refills 0, Maintenance, for pain, 07/15/1810:43:03 EST, Tablet Start Date: 07/15/18 Status: Ordered Singulair By Mouth, Daily, 0 Refills, Maintenance, 04/14/17 10:42:53 Start Date: 04/14/17 Status: Ordered Zofran 4 mg oral tablet 1 tablet = 4 mg, By Mouth, Every 8 hours, 0 Refills, Maintenance, 04/14/17 10:42:03 Start Date: 04/14/17 Status: Ordered Problem List Condition Effective Dates Status Health Status Inform ant Chronic vomiting(Confirmed) Active Dysphagia(Confirmed) Active Diabetes mellitus, type II, insulin dependent(Confirmed) Active Social History Social History Type Response Smoking Status Current some day smo ker; Type: Cigarettes entered on: 04/14/17 Sex
--- OUTSIDE RECORDS SUMMARY | 2023-07-23 12:21 | XMS_ITS | Continuity of Care Document ---
Author Name Unknown Organization [facility] Address [address] [place] [address]- Care Team Providers Care Coil Spring Assembler Name Role Phone Cece Lund Primary Care Physician [id number] Date[facility] 10/08/22 - 11/26/[address] [address]- Attending Physician: Keira Sagastume MD Admitting Physician: [...] 0 Refills, Maintenance, 09/12/22 10:08:00 EST, Tablet, [facility], Partial fill upon patient request if [...] Team Personnel Name: Aaron Gonzalez RN Position: [facility] RN Member Role: Primary Care Nurse Name: Damon Whitaker RN Position: [facility] RN Member Role: Primary Care Nurse Name: Zaida Noriega RN Position: [facility] ED RN W/OE and Tasks Member Role: Primary Care Nurse Name: Idania Sagastume RN Position: [facility] RN Supv Member Role: Primary Care Nurse Name: Cece Lund Position: [facility] Associate Professional Member Role: PCP Address: Address: [address] [place] [address] Name: Zoë Hastings Position: S Outreach Member Role: Lifetime Consulting Physician Name: Renee Mckeon RN Position: [facility] RN Supv Member Role: Primary Care Nurse Name: Pamela Castellano RN Position: S RN Member Role: Primary Care Nurse Name: Vidya Zhu RN Position: S RN Member Role: Primary Care Nurse Name: Patricia Curtis RN Position: [facility] RN Member Role: Primary Care Nurse Name: Jeanne Ray Position: [facility] Outreach Member Role: Lifetime Consulting Physician Care Team Related Persons Name: JJ FLETCHER Address: [place] [address] Name: AARON WIN Address: [place] [address] Name: CHARLENE TANG Address: home [address] [place] [address] Name: CORTEZ JOSUE Address: [place] [address] Name: ANGELIQUE BROWN Address: [place] [address]
--- OUTSIDE RECORDS SUMMARY | 2023-07-23 12:21 | XMS_ITS | Continuity of Care Document ---
Author Name Unknown Organization [facility] Address [address] [place] [address]- Care Team Providers Care Retort Engineer Name Role Phone Cece Lund Primary Care Physician Encounter [facility] [place] Date(s): 03/24/23 - 04/23/23 [facility] [address] [place] [address]- Allergies, Adverse Reactions, Alerts Substance Reaction Severity Status HumaLOG Hives Active Victoza Vomiting Active Other Food Allergy yeast (amy) Active Other Environmental Allergy cockroaches tegaderm ashweed and pigweed Active Medications pantoprazole 40 mg oral delayed release tablet [...] 0 Refills, Maintenance, 09/12/22 10:08:00 EST, Tablet, [facility], Partial fill upon patient [...] Team Personnel Name: Aaron Gonzalez RN Position: S RN Member Role: Primary Care Nurse Name: Damon Whitaker RN Position: S RN Member Role: Primary Care Nurse Name: Zaida Noriega RN Position: S RN Member Role: Primary Care Nurse Name: Idania Sagastume RN Position: S RN Supv Member Role: Primary Care Nurse Name: Cece Lund Position: S Associate Professional Member Role: PCP Address: Address: [address] [place] [address] Name: Zoë Hastings Position: S Outreach Member [...] Related Persons Name: JJ FLETCHER Address: [place] [address] Name: AARON WIN Address: [place] [address] Name: CHARLENE TANG Address: home [address] [place] [address] Name: CORTEZ JOSUE Address: [place] [address] Name: ANGELIQUE BROWN Address: [place] [address]
[2023-07-23 12:22] LABS: MANUAL DIFF FLAG NO
--- OUTSIDE RECORDS SUMMARY | 2023-07-23 12:22 | XMS_ITS | Continuity of Care Document ---
Author Name Unknown Organization [facility] Address [address] [place] [address]- Care Team Providers Care Chrome Worker Name Role Phone Cece Lund Primary Care Physician [place] [facility] [place] 02/28/21 - 02/28/[address] [address]- Discharge Disposition: A-D/C Walkout Attending Physician: Not on Staff, Attending MD Admitting Physician: Not on Staff, Admitting MD Referring Physician: Not on Staff, Referring MD Allergies, Adverse Reactions, Alerts Substance Reaction Severity Status HumaLOG Hives Active Victoza Vomiting Active Medications albuterol CFC free 90 mcg/inh inhalation aerosol 2, puffs, Inhalation, 4 times a day, PRN, # 1 each, Refills 3, Tot. Refills 3, Maintenance, 11/19/20 9:39:00 EDT, Aerosol, Route to Pharmacy Electronically, [id number], [facility], 162, cm, 11/19/20 8:17:00 EDT,... Start Date: 11/19/20 Stop Date: 03/19/21 Status: Ordered Flonase 50 mcg/inh nasal spray 1 sprays, Nares, Both, 2 times a day, # 16 Gm, 0 Refills, Maintenance, 10/11/18 9:43:36 EDT, [place] Start Date: 10/11/18 Status: Ordered Insulin Lispro [...] 0 Refills, Maintenance, 02/20/20 11:38:00 EDT, Solution, [facility] #[id number], 162, cm, 02/20/20 8:43:00 EDT, Height, 71.85, kg, 02/19/20 2:51:00 EDT, Dry Weight Start Date: 02/20/20 Status: Ordered Milk of Magnesia 8% oral suspension 30 mL = 2.4 Gm, By Mouth, Daily at bedtime, PRN for constipation, # 300 mL, 0 Refills, Maintenance,11/19/20 9:40:00 EDT, Suspension, [facility], Partial fill upon patient request if the prescription is for a schedule II opioid drug., 16... Start Date: 11/19/20 Status: Ordered ondansetron 4 mg oral tablet 1 tablet = 4 mg, By Mouth, Every 8 hours, PRN as needed for nausea/vomiting, # 10 tablet, 0 Refills, Maintenance, 04/20/20 16:58:00 EDT, Tablet, [facility] #[id number], 162, cm, 03/07/20 15:35:00 EDT, Height, 71.85, kg, 02/19/20 2:51:00 EDT, Dry... Start Date: 04/20/20 Status: Ordered Singulair By Mouth, Daily, 0 Refills, Maintenance, 04/14/17 10:42:53 Start Date: 04/14/17 Status: Ordered Problem List Condition Effective Dates Status Health Status Inform ant Asthma(Confirmed) Active Chronic vomiting(Confirmed) Active Dysphagia(Confirmed) Active Diabetes mellitus, type II, insulin dependent(Confirmed) Active Seasonal allergies(Confirmed) Active Vital Signs Most recent to oldest [Reference Range]: 1 2 Height 163 cm (02/28/21 1:16 PM) Weight 60 kg (02/28/21 1:16 PM) Oxygen Saturation [94-100 %] 100 % (02/28/21 12:52 PM) 96 % (02/28/21 12:19 PM) Pulse Rate [55-90 bpm] 97 bpm *H* (02/28/21 12:52 PM) 88 bpm (02/28/21 12:19 PM) Blood Pressure [90-138/55-84 mm Hg] 120/ 73mm Hg (02/28/21 12:52 PM) Respiratory Rate [16-30 br/min] 20 br/mi n (02/28/21 12:52 PM) Temperature [96.8-100.4 DegF] 98.5 DegF (02/28/21 12:52 PM) Mode of Delivery (Oxygen) Room air (02/28/21 12:52 PM) Room air (02/28/21 12:19 PM) Blood pressure sites Arm, right (02/28/21 12:52 PM) Temperature Route Oral (02/28/21 12:52 PM) Dry Weight 60 kg (02/28/21 1:16 PM) Weight Obtained Via stated by pt (02/28/21 1:16 PM) Social History Social History Type Response Smoking Status Current some day smo ker; Type: Cigarettes entered on: 04/14/17 Sex
--- OUTSIDE RECORDS SUMMARY | 2023-07-23 12:22 | XMS_ITS | Continuity of Care Document ---
Author Name Unknown Organization [facility] Address [address] [place] [address]- Care Team Providers Care Audit Officer Name Role Phone Cece Lund Primary Care Physician [id number] Date[facility] 08/31/22 - 09/30/22 [facility] [address] [place] [address]- [place] Allergies, Adverse Reactions, Alerts Substance Reaction Severity [...] 0 Refills, Maintenance, 09/12/22 10:08:00 EST, Tablet, [facility], Partial fill upon [...] opioid drug. Start Date: 09/12/22 Status: Ordered Problem List Condition Confirmation Course [...] Care Nurse Name: Damon Whitaker RN Position: [facility] RN Member Role: Primary Care Nurse Name: Pamela Crystal RN Position: [facility] SN RN Member Role: Primary Care Nurse Name: Zaida Noriega RN Position: S RN Member Role: Primary Care Nurse Name: Idania Sagastume RN Position: [facility] RN Supv Member Role: Primary Care Nurse Name: Cece Lund Position: [facility] Associate Professional Member Role: PCP Address: Address: [address] [place] [address] Name: Faiza Darby RN Position: [facility] RN Member Role: Primary Care Nurse Name: Zoë Hastings Position: S Outreach Member Role: Lifetime Consulting Physician Name: Renee Mckeon RN Position: [facility] RN Supv Member Role: Primary Care Nurse Name: Pamela Castellano RN Position: [facility] RN Member Role: Primary Care Nurse Name: Vidya Zhu RN Position: [facility] RN Member Role: Primary Care Nurse Name: Patricia Curtis RN Position: [facility] RN Member Role: Primary Care Nurse Name: Jeanne Ray Position: [facility] Outreach Member Role: Lifetime Consulting Physician Care Team Related Persons Name: JJ FLETCHER Address: [place] [address] Name: AARON WIN Address: [place] [address] Name: CHARLENE TANG Address: home [address] [place] [address] Name: CORTEZ JOSUE Address: home [place], [place] Name: ANGELIQUE BROWN Address: [place] [address]
--- OUTSIDE RECORDS SUMMARY | 2023-07-23 12:22 | XMS_ITS | Continuity of Care Document ---
Author Name Unknown Organization [facility] Address [address] [place] [id number]- Care Team Providers Care Pharmacists Name Role Phone Cece Lund Primary Care Physician [phone] [id number] Date(s): 02/11/22 - 06/11/[address] [address] Attending Physician: Keira Sagastume MD Admitting Physician: Keira Sagastume MD Referring Physician: Cece Lund Allergies, Adverse Reactions, Alerts Substance Reaction Severity Status HumaLOG Hives Active Victoza Vomiting Active Medications albuterol CFC free 90 mcg/inh inhalation aerosol 2, puffs, Inhalation, 4 times a day, PRN, # 1 each, Refills 3, Tot. Refills 3, Maintenance, 11/19/20 9:39:00 EDT, Aerosol, Route to Pharmacy Electronically, [id number], [facility], 162, cm, 11/19/20 8:17:00 EDT,... Start Date: 11/19/20 Stop Date: 03/19/21 Status: Ordered ipratropium nasal 21 mcg/inh spray 1 sprays, Nares, Both, Daily at bedtime, # 30 mL, 1 Refills, Maintenance, 09/29/21 12:07:00 EST, [facility] #[id number], Partial fill upon patient request if the [...] mL, 0 Refills, Maintenance,11/19/20 9:40:00 EDT, Suspension, [facility], Partial fill upon patient request if the prescription is for a schedule II opioid drug., 16... Start Date: 11/19/20 Status: Ordered ondansetron 4 mg oral tablet 1 tablet = 4 mg, By Mouth, Every 8 hours, PRN as needed for nausea/vomiting, # 10 tablet, 0 Refills, Maintenance, 04/20/20 16:58:00 EDT, Tablet, [facility] #[id number], 162, cm, 03/07/20 15:35:00 EDT, Height, 71.85, [...] Date: 04/14/17 Status: Ordered Problem List Condition Confirmation Course [...] Care team information Care Team Personnel Name: Pamela Crystal RN Position: [facility] RN Member Role: Primary Care Nurse Name: Zaida Noriega RN Position: S RN Member Role: Primary Care Nurse Name: Cece Lund Position: [facility] Associate Professional Member Role: PCP Address: Address: [address] [place], [place] [address] Name: Zoë Hastings Position: [facility] Outreach Member Role: Lifetime Consulting Physician Name: Pamela Castellano RN Position: [facility] RN Member Role: Primary Care Nurse Name: Vidya Zhu RN Position: [facility] RN Member Role: Primary Care Nurse Name: Jeanne Ray Position: [facility] Outreach Member Role: Lifetime Consulting Physician Care Team Related Persons Name: JJ FLETCHER Address: [place] [address] Name: AARON WIN Address: [place] [address] Name: CHARLENE TANG Address: home [address] [place] [id number] Name: CORTEZ JOSUE Address: [place] [address] Name: ANGELIQUE BROWN Address: [place] [address]
--- OUTSIDE RECORDS SUMMARY | 2023-07-23 12:22 | XMS_ITS | Continuity of Care Document ---
Author Name Unknown Organization [facility] Address [address] [place] [address]- Care Team Providers Care Substitute School Nurse Name Role Phone Cece Lund Primary Care Physician [phone] [facility] [id number] Date(s): 09/13/20 - 10/13/20 [facility] [address] [place] [id number] Attending Physician: Marbella Watkins Admitting Physician: AdmtrMarbella Referring Physician: Admtr, Ar8 Allergies, Adverse Reactions, [...] Gm, 0 Refills, Maintenance, 10/11/18 9:43:36 EDT, [place] Start Date: 10/11/18 Status: Ordered Lantus Solostar Pen 100 units/mL subcutaneous solution = 60 units, Subcutaneous Injection, Daily at bedtime, # 10 mL, 0 Refills, Maintenance, 02/20/20 11:38:00 EDT, Solution, [facility] #[id number], 162, cm, 02/20/20 8:43:00 EDT, Height, 71.85, kg, 02/19/20 2:51:00 EDT, Dry Weight Start Date: 02/20/20 Status: Ordered metroNIDAZOLE 0.75% topical gel 1 application, Topically, Daily, # 45 Gm, 0 Refills, Maintenance, 04/20/20 16:57:00 EDT, Gel, [facility] #[id number], 1 application Topically Daily,x5 days, 162, cm, [...] 0 Refills, Maintenance, 04/20/20 16:58:00 EDT, Tablet, [facility] #[id number], 162, cm, 03/07/20 15:35:00 EDT, Height, 71.85, [...]
--- OUTSIDE RECORDS SUMMARY | 2023-07-23 12:22 | XMS_ITS | Continuity of Care Document ---
Author Name Unknown Organization [facility] Address [address] [place] [address]- Care Team Providers Care Supervisor Public Health Nursing Name Role Phone Cece Lund Primary Care Physician Encounter [facility] [place](s): 12/17/20 - 01/16/21 [facility] [address] [place] [id number] Attending Physician: AdmMarbella armas Admitting Physician: AdmtrMarbella Referring Physician: Admtr, ArArsalan Allergies, Adverse Reactions, Alerts Substance Reaction Severity Status HumaLOG Hives Active Victoza Vomiting Active Medications albuterol CFC free 90 mcg/inh inhalation aerosol 2, puffs, Inhalation, 4 times a day, PRN, # 1 each, Refills 3, Tot. Refills 3, Maintenance, 11/19/20 9:39:00 EDT, Aerosol, Route to Pharmacy Electronically, [id number], [facility], 162, cm, 11/19/20 8:17:00 EDT,... Start Date: 11/19/20 Stop Date: 03/19/21 Status: Ordered ClearLax oral powder for reconstitution = 17 Gm, By Mouth, Daily, # 527 Gm, 1 Refills, Maintenance, 11/19/20 9:34:00 EDT, [facility], Partial fill upon patient request if the prescription is for a schedule II opioid drug., 17Gm By Mouth Daily, 162, cm, 11/19/20 8:17:00 EDT, H... Start Date: 11/19/20 Status: Ordered Flonase 50 mcg/inh nasal spray 1 sprays, Nares, Both, 2 times a day, # 16 Gm, 0 Refills, Maintenance, 10/11/18 9:43:36 EDT, [place] Start Date: 10/11/18 Status: Ordered Insulin Lispro [...] 0 Refills, Maintenance, 02/20/20 11:38:00 EDT, Solution, [facility] #[id number], 162, cm, 02/20/20 8:43:00 EDT, Height, 71.85, kg, 02/19/20 2:51:00 EDT, Dry Weight Start Date: 02/20/20 Status: Ordered metroNIDAZOLE 0.75% topical gel 1 application, Topically, Daily, # 45 Gm, 0 Refills, Maintenance, 04/20/20 16:57:00 EDT, [facility] #[id number], 1 application Topically Daily,x5 days, 162, cm, 03/07/20 15:35:00 EDT, Height, 71.85, kg, 02/19/20 2:51:00 EDT, Dry Weight Start Date: 04/20/20 Stop Date: 04/25/20 Status: Ordered Milk of Magnesia 8% oral suspension 30 mL = 2.4 Gm, By Mouth, Daily at bedtime, PRN for constipation, # 300 mL, 0 Refills, Maintenance,11/19/20 9:40:00 EDT, Suspension, [facility], Partial fill upon patient request if the prescription is for a schedule II opioid drug., 16... Start Date: 11/19/20 Status: Ordered ondansetron 4 mg oral tablet 1 tablet = 4 mg, By Mouth, Every 8 hours, PRN as needed for nausea/vomiting, # 10 tablet, 0 Refills, Maintenance, 04/20/20 16:58:00 EDT, Tablet, [facility][id number], 162, cm, 03/07/20 15:35:00 EDT, Height, 71.85, [...]
--- OUTSIDE RECORDS SUMMARY | 2023-07-23 12:22 | XMS_ITS | Continuity of Care Document ---
Author Name Unknown Organization [facility] ter Address [address] [place] [id number]- Care Team Providers Care Deliverer Pharmacy Name Role Phone Cece Lund Primary Care Physician [phone] [place] [facility] [place] - 09/12/[address] [address] Discharge Disposition: A-D/C Home Attending Physician: Chelly Combs MD Admitting Physician: Vidal Reich MD Referring Physician: Not on Staff, Referring MD Allergies, Adverse Reactions, Alerts Substance Reaction Severity Status HumaLOG Hives Active Victoza Vomiting Active Medications ondansetron 4 mg oral tablet, disintegrating 1 tablet = 4 mg, By Mouth, Every 8 hours, PRN Nausea & Vomiting, for 3 days, # 9 tablet, 0 Refills, Acute 09/15/22 10:01:00 EST, 09/12/22 10:01:00 EST, Tablet, [facility], Partial fill upon patient request if the prescription is for a sc... Start Date: 09/12/22 Stop Date: 09/15/22 Status: Ordered oxyCODONE 5 mg oral tablet 5 mg, Tablet, By Mouth, Every 6 hours for 7 days, PRN for Pain , Moderate, Routine, 09/09/22 14:11:00 EST, Stop date 09/16/22 14:10:00 EST Start Date: 09/09/22 Stop Date: 09/12/22 Status: Discontinued pantoprazole 40 mg oral delayed release tablet [...] 0 Refills, Maintenance, 09/12/22 10:08:00 EST, Tablet, [facility], Partial fill upon patient request if the prescription is for a schedule II opioid drug., 163, cm, 09/12/22 7:34... Start Date: 09/12/22 Stop Date: 10/12/22 Status: Ordered traMADol 50 mg oral tablet 1 tablet = 50 mg, By Mouth, Daily at bedtime, PRN as needed for pain, for 3 days, # 3 tablet, 0 Refills, Acute 09/15/22 10:09:00 EST, 09/12/22 10:09:00 EST, Tablet, [facility], Partial fill upon patient request if the prescription is for... Start Date: 09/12/22 Stop Date: 09/15/22 Status: Ordered traMADol 50 mg oral tablet 25 mg, Tablet, By Mouth, Once, PRN for Pain , Moderate, DAVE, 09/11/22 21:01:00 EST Start Date: 09/11/22 Stop Date: 09/12/22 Status: Completed Trulance 3 mg oral tablet 1 tablet = 3 mg, By Mouth, Daily, 0 Refills, Maintenance, 09/12/22 10:00:00 EST, Partial fill upon patient request if the prescription is for a schedule II opioid drug. Start Date: 09/12/22 Status: Ordered Tylenol 325 mg oral tablet 650 mg, Tablet, By Mouth, Every 6 hours, PRN for Temperature, Routine, 09/09/22 14:11:00 EST Start Date: 09/09/22 Stop Date: 09/12/22 Status: Discontinued Problem List Condition Confirmation Course Effective Dates Status Health St atus Informant Asthma Confirmed Active Chronic vomiting Confirmed Active Dysphagia Confirmed Active Diabetes mellitus, type II, insulin dependent Confirmed Active Nasal congestion Confirmed Active STEVE (obstructive sleep apnea) Confirmed Active Seasonal allergies Confirmed Active Vital Signs Most recent to oldest [Reference Range]: 1 2 3 Height 163 cm (09/12/22 7:34 AM) 163 cm (09/12/22 3:03 AM) 163 cm (09/11/22 11:52 PM) Weight 64 kg (09/09/22 5:13 PM) Oxygen Saturation [94-100 %] 99 % (09/12/22 7:34 AM) 95 % (09/12/22 3:03 AM) 99 % (09/11/22 11:52 PM) Pulse Rate [55-90 bpm] 80 bpm (09/12/22 7:34 AM) 98 bpm *H* (09/12/22 3:03 AM) 70 bpm (09/11/22 11:52 PM) Body Mass Index [18.5-24.99 kg/m2] 24.09 kg/m2 (09/09/22 5:13 PM) Blood Pressure [90-138/55-84 mm Hg] 121/58mm Hg (09/12/22 7:34 AM) 146/91mm Hg *H* (09/12/22 3:03 AM) 133/70mm Hg (09/11/22 11:52 PM) Respiratory Rate [16-30 br/min] 16 br/min (09/12/22 9:28 AM) 16 br/min (09/12/22 9:28 AM) 16 br/min (09/12/22 9:28 AM) Temperature [96.8-100.4 DegF] 98.8 DegF (09/12/22 7:34 AM) 98.2 DegF (09/12/22 3:03 AM) 98.2 DegF (09/11/22 11:52 PM) Mode of Delivery (Oxygen) Room air (09/12/22 7:34 AM) Room air (09/12/22 3:03 AM) Room air (09/11/22 11:52 PM) Blood pressure sites Arm, left (09/12/22 7:34 AM) Arm, right (09/12/22 3:03 AM) Arm, right (09/11/22 4:51 PM) Temperature Route Oral (09/12/22 7:34 AM) Oral (09/12/22 3:03 AM) Oral (09/11/22 11:52 PM) Dry Weight 64 kg (09/09/22 5:13 PM) Social History Social History Type Response Smoking Status Current some day smo ker; Type: Cigarettes entered on: 04/14/17 Sex History and physical note * Vidal Reich MD: PERFORM Event Display: History and Physical Hospital Authored Date: [id number] Patient: ??AURA LR ? Age:??47 Years?Sex:??Female?:??1975?? Chief Complaint/Reason for Consultation Abdominal pain ?? History of Present Illness ?? 47-year-old female presented to ED with complaint of nausea vomiting and abdominal pain ?? Patient told me that??she has been having abdominal pain for a long time.?? She has been following up??with GI as outpatient at [facility]. ??She told me that her last EGD was in the month of June 2022??and it was negative for H. pylori.?? She told me that for the past 3 days she has been having nausea vomiting and abdominal pain. ??Abdominal pain epigastric??and mid abdomen, 8/10, constant??with no particular aggravating or relieving factor. ??Also with nausea and multiple episodes of??nonbloody vomitus. ??No chest pain, palpitations, fever, chills.?? No constipation.?? No numbness, tingling or focal weakness Review of Systems ROS: All systems reviewed and negative except as in HPI Objective Vital Signs?? Temperature: 97.5 DegF (09/09/22 09:32:00) Temperature Route: Oral (09/09/22 09:32:00) Pulse Rate: 75 bpm (09/09/22 13:54:00) Respiratory Rate: 17 br/min (09/09/22 13:54:00) Systolic Blood Pressure:??157 mm Hg??High (09/09/22 13:54:00) Diastolic Blood Pressure: 76 mm Hg (09/09/22 13:54:00) Pulse Pressure: 81 mm Hg (09/09/22 13:54:00) Oxygen Saturation: 100 % (09/09/22 13:54:00) Mode of Delivery (Oxygen): Room air (09/09/22 13:54:00) Early Warning Score: 2 (09/09/22 13:57:48) ? Physical Exam MRI TECHNICIAN: AA0 3, no focal motor or sensory deficit, cranial nerves II to XII intact CVS: RRR, S1, S2, No gallop, murmur or rub Resp: b/l good air entry, no wheezing or rhales, CTA b/l GI: Soft, epigastric tenderness without point, guarding or rigidity, ND, BS +ve EXT: no pedal edema Skin: no rash Neck: supple, no thyromegaly or lymphadenopathy Eyes: PERRLA, EOMI?? Head: atraumatic, normocephalic ENMT: moist mucus membranes, nares patent with no discharge Musculoskeletal: no joint tenderness, swelling or limitation of movement ?? Assessment/Plan ??47-year-old female here with nausea vomiting and abdominal pain ?? Nausea vomiting and abdominal pain:??Patient has history of H. pylori. ??She told me that higherlast??EGD was in June 2022. ??She had??GI??established as outpatient and next appointment is [facility] Her abdominal examination is benign. CT abdomen without any acute finding Lipase, AST and ALT without acute finding Lactate mildly elevated No sign or symptom of UTI Could be related to marijuana hyperemesis syndrome IV fluid Serial abdominal examination Symptomatic management N.p.o. for now ?? Suicidal ideation: Patient expressed suicidal ideation in the emergency room. 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 History of diabetes mellitus: Not on medication. ??Will check POC's ?? Leukocytosis: Stable. ??Likely reactive. ??Monitor off antibiotic ?? DVT prophylaxis: SCD ?? CODE STATUS: Full ? Histories Allergies Allergies ?(Active and Proposed Allergies Only) Victoza? (Severity: Unknown severity, Onset: Unknown) ?Reactions: Vomiting HumaLOG? (Severity: Unknown severity, Onset: Unknown) ?Reactions: Hives ? Medications Home Medications None ?? Past medical history: History of diabetes mellitus, H. pylori, vomiting ?? Social history: Positive for marijuana smoking. ??Occasional alcohol intake but denies any recent smoking cigarettes ?? Family history: Father with history of coronary artery disease ?? Results ? CBC, CBC w/Diff?? CBC?? Differential?? WBC:??13.8 k/mm3??High () Abs. Neut:??12 k/mm3??High () RBC: 4.69 m/mm3 (:) Abs. Lymph: 1 k/mm3 (:) Hct: 38.4 % (:) Abs. [place]: 0.6 k/mm3 (:) RDW-SD: 40.6 femtoliters (:) Abs. Eo: 0.1 k/mm3 (:) Nucleated RBC (Automated): 0 #/100 WBC'S () Abs. Baso: 0 k/mm3 () Abs. NRBC: 0 k/mm3 () Neut %:??87.2 %??High () ?? Lymph %:??7.4 %??Low (:) ?? [place] %:??4.1 %??Low (:) ?? Eos %: 0.4 % (:) ?? Baso %: 0.2 % (:) ?? Imm Gran: 0.7 % () ?? Abs. Imm Gran: 0.1 k/mm3 () ? BMP, Mg, and Phos Anion Gap: 17 () Bicarbonate Level: 23 mmol/L () BUN: 14 mg/dL (:) Calcium: 9.7 mg/dL (:) Chloride: 100 mmol/L (:) Creatinine-Blood: 1 mg/dL () Estimated GFR Creatinine: 74 ML/MIN/1.73 M2 () Glucose Level:??170 mg/dL??High () Potassium: HEMOLYZED (:) Sodium: 140 mmol/L (:) ?? Coagulation Profile?? No qualifying data available. ?? LFT Albumin:??4.9 Gm/dL??High () Alkaline Phosphatase: 75 units/L (09:27) ALT (SGPT): 15 units/L (09:27) AST (SGOT): 24 units/L (09:) Bilirubin, Total: 0.6 mg/dL (09:) ?? Urinalysis Albumin, Urine: NEGATIVE (12:52) Appear/Color, Urine: COLORLESS (12:52) Bilirubin, Urine: NEGATIVE (12:52) Glucose, Urine: NEGATIVE (12:52) Hemoglobin, Urine: NEGATIVE (12:52) Hold Urine Culture: Testing available 48 hours from time of collection. (12:52) Ketones, Urine: 2+ Abnormal (12:52) Leukocyte, Urine: NEGATIVE (12:52) Nitrite, Urine: NEGATIVE (12:52) pH, Urine: 7.5 (12:52) RBC's, Urine: 1 /HPF (12:52) Specific [facility], Urine: 1.012 (12:52) Squamous Epith: 3 /HPF (12:52) Urobilinogen: NORMAL (12:52) WBC's, Urine: 1 /HPF (12:52) ? Blood Gases?? No qualifying data available. ?? Uric/LDH?? No qualifying data available. ? EKG study * Event Display: ECG 12-Lead Authored Date: Please click on pdf link to open report * Event Display: ECG 12-Lead Authored Date: Ventricular Rate: 59 BPM Atrial Rate: 58 BPM QRS Duration: 80 ms Q-T Interval: 418 ms QTC Calculation(Bazett): 413 ms R [place]: -2 degrees T [place]: 38 degrees Normal sinus rhythm Poor data quality, interpretation may be adversely affected Abnormal ECG When compared with ECG of 07-SEP-2022 22:45, MANUAL COMPARISON REQUIRED, DATA IS UNCONFIRMED Confirmed by SIERRA COLLADO, [facility] ([id number]) on 09/09/2022 11:54:40 AM [place]: SIERRA COLLADO,[facility] Progress note * Damir COLLADO, Vidal: PERFORM Event Display: [facility] Authored Date: Patient: ??AURA LR ? Age:??47 Years?Sex:??Female?:??1975?? Subjective Chief complaint: Abdominal pain ?? Spoke to RN who told me that no pain overnight This morning again complaining of??pain??and had??vomiting Requesting to be seen by GI No chest pain, palpitations, shortness of breath, cough, numbness,??fever, chills, dysuria, hematuria Review of Systems All systems reviewed and negative except as above Objective Vital Signs?? Temperature: 97.5 DegF (09/11/22 11:27:00) Temperature Route: Oral (09/11/22 11:27:00) Pulse Rate: 65 bpm (09/11/22 11:27:00) Respiratory Rate: 17 br/min (09/11/22 11:27:00) Systolic Blood Pressure:??179 mm Hg??High (09/11/22 11:27:00) Diastolic Blood Pressure: 67 mm Hg (09/11/22 11:27:00) Blood pressure sites: Arm, right (09/11/22 07:33:00) Mean Arterial Pressure: 104 mm Hg (09/11/22 11:27:00) Pulse Pressure: 112 mm Hg (09/11/22 11:27:00) Oxygen Saturation: 96 % (09/11/22 11:27:00) Mode of Delivery (Oxygen): Room air (09/11/22 11:27:00) Early Warning Score: 2 (09/11/22 12:04:07) ? Physical Exam MRI TECHNICIAN: AA0 3, no focal motor or sensory deficit, cranial nerves II to XII intact CVS:?? S1, S2, No gallop, murmur or rub Resp: b/l good air entry, no wheezing or rhales GI: Soft, epigastric tenderness without rebound, guarding or rigidity, ND, BS +ve EXT: no pedal edema Skin: no rash Neck: supple Head: atraumatic, normocephalic ENMT: moist mucus membranes, nares patent with no discharge Musculoskeletal: no joint tenderness, swelling or limitation of movement ?? _ Inpatient Medications Medications (15) Active SCHEDULED: (4) Docusate Sodium 100 mg Capsule (Colace sodium 100 mg oral capsule) ??100 mg 1 capsule, By Mouth, 2 times a day Heparin 5000 units/mL Inj (1 mL) (Heparin Inj) ??5,000 units 1 mL, Subcutaneous Injection, Every 8 hours Mirtazapine 15 mg Tablet (Remeron 15 mg oral tablet) ??15 mg, By Mouth, Daily at bedtime Pantoprazole 40 mg Inj (Protonix Inj) ??40 mg, IV Push Slowly, Every 12 hours CONTINUOUS: (1) D5% / NaCL 0.9% (1000 mL) Cont IV 1,000 mL (D5%/NaCl 0.9% 1,000 mL) ??1,000 mL, IV Infusion, 75 mL/hr PRN: (10) Acetaminophen 325 mg Tablet (Tylenol 325 mg oral tablet) ??650 mg, By Mouth, Every 6 hours Chloraseptic Lozenge ??1 lozenge, By Mouth, Every 3 hours Dextrose Inj Syringe (Dextrose 50% Inj Syringe (25Gm)) ??12.5 Gm, IV Push Slowly, Every 20 minutes Dextrose Inj Syringe (Dextrose 50% Inj Syringe (25Gm)) ??25 Gm, IV Push Slowly, Every 15 minutes Glucagon 1 mg Inj (Glucagon Inj) ??1 mg, Intramuscular, Once Glucose 40% Gel (15 Gm) (Glucose Gel) ??15 Gm, By Mouth, Every 20 minutes Glucose 40% Gel (15 Gm) (Glucose Gel) ??30 Gm, By Mouth, Every 20 minutes Ondansetron 2mg/mL Inj (2mL Vial) (Ondansetron Inj) ??4 mg, IV Push, Every 6 hours OxyCODONE 5 mg IR Tablet (oxyCODONE 5 mg oral tablet) ??5 mg, By Mouth, Every 6 hours PROCHLORperazine 5mg/ml Inj (Compazine Inj) ??5 mg 1 mL, IV Push, Every 6 hours ? Results Recent Labs BLOOD COUNT & DIFF WBC 9.8 k/mm3 ()?? 09/11/2022 00:18 RBC 4.07 m/mm3 (Low)?? 09/11/2022 00:18 Hgb 11.0 Gm/dL (Low)?? 09/11/2022 00:18 Hct 33.5 % (Low)?? 09/11/2022 00:18 MCV 82.3 femtoliters ()?? 09/11/2022 00:18 MCH 27.0 pg ()?? 09/11/2022 00:18 MCHC 32.8 g/dL (Low)?? 09/11/2022 00:18 Platelet Count 257 k/mm3 ()?? 09/11/2022 00:18 RDW-SD 40.2 femtoliters ()?? 09/11/2022 00:18 MPV 10.0 femtoliters ()?? 09/11/2022 00:18 Nucleated RBC (Automated) 0.0 #/100 WBC'S ()?? 09/11/2022 00:18 Abs. NRBC 0.0 k/mm3 ()?? 09/11/2022 00:18 Abs. Neut 6.9 k/mm3 ()?? 09/11/2022 00:18 Abs. Lymph 2.1 k/mm3 ()?? 09/11/2022 00:18 Abs. [place] 0.7 k/mm3 ()?? 09/11/2022 00:18 Abs. Eo 0.1 k/mm3 ()?? 09/11/2022 00:18 Abs. Baso 0.0 k/mm3 ()?? 09/11/2022 00:18 Neut % 70.5 % ()?? 09/11/2022 00:18 Lymph % 21.2 % ()?? 09/11/2022 00:18 [place] % 6.7 % ()?? 09/11/2022 00:18 Eos % 0.7 % ()?? 09/11/2022 00:18 Baso % 0.4 % ()?? 09/11/2022 00:18 Imm Gran 0.5 % ()?? 09/11/2022 00:18 Abs. Imm Gran 0.1 k/mm3 ()?? 09/11/2022 00:18 ?? CHEM GENERAL Sodium 139 mmol/L ()?? 09/11/2022 00:18 Potassium 3.7 mmol/L ()?? 09/11/2022 00:18 Chloride 104 mmol/L ()?? 09/11/2022 00:18 Bicarbonate Level 24 mmol/L ()?? 09/11/2022 00:18 Anion Gap 11 ()?? 09/11/2022 00:18 Glucose Level 111 mg/dL (High)?? 09/11/2022 00:18 Glucose, POC 132 mg/dL (High)?? 09/11/2022 11:59 BUN 6 mg/dL ()?? 09/11/2022 00:18 Creatinine-Blood 0.9 mg/dL ()?? 09/11/2022 00:18 Estimated GFR Creatinine 82 ML/MIN/1.73 M2 ()?? 09/11/2022 00:18 Calcium 8.5 mg/dL (Low)?? 09/11/2022 00:18 ? Assessment/Plan ?? 47-year-old female here with nausea vomiting and abdominal pain ?? Nausea vomiting and abdominal pain:??Patient has history of H. pylori. ??She told me that higher last??EGD was in June 2022. ??She had??GI??established as outpatient and next appointment is in September Her abdominal examination is benign. CT abdomen without any acute finding Lipase, AST and ALT without acute finding Lactate mildly elevated No sign or symptom of UTI Could be related to marijuana hyperemesis syndrome IV fluid--pt refusing to have IVF clear liquid diet We will get GI consultation??for now Follow-up GI recommendation Serial abdominal examination Symptomatic management PPI ?? Suicidal ideation: Patient expressed suicidal ideation in the emergency room. 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 ??However recommended outpatient referrals??which psych??will make??and also recommended to start patient on mirtazapine which has been done ?? History of diabetes mellitus: Not on medication. ??Will??will continue with POC's ?? Leukocytosis: Stable. ??Likely reactive. ??Monitor off antibiotic--resolved ?? Anemia:??PCP follow-up and work-up ?? DVT prophylaxis: SCD. SQ heparin ?? CODE STATUS: Full * AVA Iglesias , Keiry: PERFORM, SIGN, VERIFY Event Display: Progress Note Hospital Authored Date: Patient: AURA LR Age: 47 years Sex: Female : 1975 Associated Diagnoses: None Author: AVA Iglesias Sara Findings Narrative/Incidental Night RN reported that the patient had no abdominal pain overnight and required no prn medication, this am pt reporting pain at a 6/10 in abdomen, gave colace and oxycodone and patient then reportingthat she started vomiting and the pain is a 10 and crying and pacing in the hallway, Dr. Damir naqvi see about giving IV pain meds which he declined. updated patient and she was crying saying she is having pain and needs something iv. pt reporting that MD said that GI was going to be consulted, will continue to monitor. MD repaged to try something to relax patient, will continue to monitor.. Discharge Information Case Management Discharge Plan : Case Management Discharge Plan Data 09/08/2022 6:48 EST Discharge Level of Care at Discharge Home/Halfway/Foster Care * Hannah Reyes RN: VERIFY, PERFORM, SIGN Event Display: Progress Note Hospital Authored Date: Patient: AURA LR Age: 47 years Sex: Female : 1975 Associated Diagnoses: None Author: Hannah Reyes RN Findings Narrative/Incidental Patient with c/o ongoing cramping like abdominal pain and nausea in the am. Requested to have poc checked multiple times initially anxious he rpoc was low then too high. c/o feeling lightheaded at times. tearful and crying mid morning into noon time. sitter at bedside. started on oxycodone with good effect. refused futher iv fluids due to concern of the dextrose. switched to clears and tolerated well. psych consult. suicide precautions and sitter removed. . Note * Patricia Curtis RN: PERFORM Event Display: Discharge/Transfer Note Hospital Authored Date: [id number] Nursing Discharge Note Entered On: 09/12/2022 12:01 EST Performed On: 09/12/2022 12:01 EST by Patricia Curtis RN Nursing Discharge Note 2 Discharge Time : 09/12/2022 12:01 EST Discharge Level of Care at Discharge : Home/Halfway/Foster Care Patient Left Unit Via : Wheelchair Patient Accompanied Off Unit with : Responsible adult DC Instructions Provided & Signed by Pt : Yes Patient Understands D/C Instructions : Yes Patient Instructions Discharge Signed : Yes Did Pt have Specialty Bed or Wound Vac : Kamille Curtis RN, Patricia - 09/12/2022 12:01 EST * Lauryn COLLADO, Chelly: PERFORM Event Display: Discharge/Transfer Note Hospital Authored Date: [id number] Patient: ??AURA LR ? Age:??47 Years?Sex:??Female?:??1975?? Patient Information Discharge Location: B Primary Care Physician: Cece Lund Admit Date/Time: 09/09/22 07:49 Discharge Date:??09/12/2022 10:04 Discharge Disposition Discharge Disposition: Home: No Services Discharge Diagnosis Functional dyspepsia (K30) Chronic vomiting Diabetes mellitus, type II, insulin dependent ?? _ Discharge Medications Mirtazapine (Remeron 15 mg oral tablet)?1?tab(s)?15?Milligram?By Mouth?Daily at bedtime?for 30?Days Ondansetron (ondansetron 4 mg oral tablet, disintegrating)?1?tab(s)?4?Milligram?By Mouth?Every 8 hours?as needed?Nausea & Vomiting?for 3?Days Pantoprazole (pantoprazole 40 mg oral delayed release tablet)?40?Milligram?By Mouth?Daily?for 30?Days plecanatide (Trulance 3 mg oral tablet)?1?tab(s)?3?Milligram?By Mouth?Daily Tramadol (traMADol 50 mg oral tablet)?1?tab(s)?50?Milligram?By Mouth?Daily at bedtime?as needed?as needed for pain?for 3?Days ? Medications Started Pantoprazole Ondansetron Mirtazapine Tramadol Medications Discontinued None Doses Changed None Allergies Allergies ?(Active and Proposed Allergies Only) Victoza? (Severity: Unknown severity, Onset: Unknown) ?Reactions: Vomiting HumaLOG? (Severity: Unknown severity, Onset: Unknown) ?Reactions: Hives ? PCP Follow-Up/Heads-Up Follow up clinically post hospitalization Future Appointments Wednesday 10:30 AM EST ?? With: Mitesh COLLADO, Keira Rob Where: [facility] [address] [address]- Wednesday 2:00 PM EDT ?? With: Where: [facility] Hospital Course 47-year-old female here with nausea vomiting and abdominal pain ?? Functional dyspepsia Nausea vomiting and abdominal pain:??Patient has history of H. pylori. ?? She told me that higher last??EGD was in June 2022. ??She had??GI??established as outpatient and next appointment is in September Her abdominal examination is benign. CT abdomen without any acute finding Lipase, AST and ALT without acute finding Lactate mildly elevated and resolved with IV hydration No sign or symptom of UTI Could be related to marijuana hyperemesis syndrome S/p IVF and initiated on CLD and advanced as tolerated Evaluated by GI and opined given recent endoscopy, normal CT scan of the abdomen, pt likely has functional dyspepsia.?? Would treat with reassurance, stress reduction, avoidance of culprit foods, and compliance with PPIas prescribed (which often helps but does not eliminate the dyspepsia.?? Additional imaging or endoscopy is not warranted.?? She should f/u with her established GI physician at her upcoming appointment for further reassurance and encouragement. ?? Suicidal ideation: Patient expressed suicidal ideation in the emergency room. 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 However recommended outpatient referrals??which psych??will make??and also recommended to start patient on mirtazapine. Started on??mirtazapine??15mg qhs for mood and anxiety ?? History of diabetes mellitus: Not on medication. ?? HbA1C 6.2 Will??will continue with POC's ?? Leukocytosis: Stable. ??Likely reactive. ??Monitor off antibiotic--resolved ?? Anemia:??PCP follow-up and work-up ?? Patient seen and examined at bedside Denies any acute complaints. Improved GI symptoms. Explained to her about the clinical findings, GI recommendations and imaging findings. Advised conservative management and f/u with GI as scheduled ?? Gen: AAO*3; RS: CTA b/l; CVS: regular; Abd: Soft Non tender, non distended; Neuro AAO*3, ambulatory Objective Measurements?? Height: 163 cm (09/12/22) Weight: 64 kg (09/09/22) Dry Weight: 64 kg (09/09/22) Body Mass Index: 24.09 kg/m2 (09/09/22) ? Vital Signs?? Temperature: 98.8 DegF (09/12/22 07:34:00) Temperature Route: Oral (09/12/22 07:34:00) Pulse Rate: 80 bpm (09/12/22 07:34:00) Respiratory Rate: 16 br/min (09/12/22 09:28:00) Respiratory Rate: 16 br/min (09/12/22 09:28:00) Respiratory Rate: 16 br/min (09/12/22 09:28:00) Systolic Blood Pressure: 121 mm Hg (09/12/22 07:34:00) Diastolic Blood Pressure: 58 mm Hg (09/12/22 07:34:00) Blood pressure sites: Arm, left (09/12/22 07:34:00) Mean Arterial Pressure: 79 mm Hg (09/12/22 07:34:00) Pulse Pressure: 63 mm Hg (09/12/22 07:34:00) Oxygen Saturation: 99 % (09/12/22 07:34:00) Mode of Delivery (Oxygen): Room air (09/12/22 07:34:00) Early Warning Score: 0 (09/12/22 09:28:58) ? Consultants Carrie COLLADO, Joanna Santiago MD, Griffin Patient Education Titles Understanding Functional Dyspepsia?? Depression: Tips to Help Yourself?? Depression?? Follow-Up Appointments Added Follow Up ?Time Frame ?Comments Follow up with GI as outpatient as scheduled at [facility] Keira Sagastume?09/29/2022 10:30 Cece Manley?2 to 3 weeks Patient Instructions PARTIAL HOSPITALIZATION PROGRAM: ?? A referral has been placed on your behalf to: ?? The [facility] Hospitalization Program (PHP) at [address] #[phone] (Central Intake) #[phone] (Main number)?? Post Discharge Care Diet: Diabetic Diet Activity: ?? OOB ad Odette Wound Care: - Code Status: ?? Full Resuscitation Condition: Good Prognosis: Good Discharge ?09/12/22 9:59:00 EST Discharge Prescriptions ?ePrescribed, ??09/12/22 9:59:00 EST 36??minutes spent on discharge * Patricia Curtis RN: MODIFY, PERFORM Event Display: Patient Education/Instruction Authored Date: Inpatient Adult Discharge Instructions [address] [id number] Name: AURA LR : 1975 Visit: 09/09/2022 07:49:00 Current Date: 09/12/2022 11:10 Account: [id number] Inpatient Adult Discharge Instructions We would like to thank you for allowing us to assist you with your healthcare needs. The following includes patient education materials and information regarding your injury/illness. Our entire staffstrives to provide an excellent experience for our patients and their families. PLEASE ENSURE YOU FOLLOW-UP PER THE INSTRUCTIONS BELOW! ?? YOUR OPINION IS IMPORTANT TO US! Please complete the survey you may receive by mail or email. Your feedback will be used to make improvements to the healthcare experiences of our patients and their families. Surveys are administered by [employer] ?? If further treatment with your primary care physician or another doctor is recommended, it is important for you to keep the appointment. Call your primary care physician or return to the Emergency Department immediately if your condition worsens, fails to improve, or new symptoms develop. If you need to find a doctor, you can call [facility] for a referral at [phone] or toll free at [phone]) or log in to [email or web address] ?? You can view and manage your care through the patient portal or by using a health care junaid of your choosing. [employer] is a website that allows you to securely view your medical information including your hospital discharge summary, office visit summaries, medications and follow-up visits. You can also request appointments, renew medications, and request access to your medical information using a health care junaid of your choosing, or just ask a question. You can enroll at [email or web address] or register during your next office visit. You have been discharged from [facility], Patient Care Unit: D3B. If you have any questions regarding these instructions after you leave, please call us and we will be happy to assist you. [facility] Your Care Team Attending Physician Chelly Combs MD Discharging Providers Chelly Combs MD Reason for Admission pt c/o three years of abd pain, nausea and vomiting. pt see yesterday, CT scan done showing gastritis. pt anxious, dry heaving. pt has hx of gastroparesis Your Diagnosis Functional dyspepsia Tests Performed Below is a partial list of the tests performed during your hospitalization. You may have had other tests and procedures not included in this list. Please discuss all test results with your provider. Alcohol Level Basic Metabolic Panel CBC w/ Differential Cocaine Urine Screen Comprehensive Metabolic Panel COVID-19 RNA POC GLUCOSE POC HOLD BLUE TUBE Lactate Level Lipase Opiate Screen Urine Serum Qualitative Urinalysis w/hold for Urine Culture Primary Care Provider Cece Lund Advance Directive Health Care Proxy on File Yes - Health Care Proxy Discharge Vitals Temperature: 98.8 DegF Height: 163 cm Pulse Rate: 80 bpm Weight: 64 kg Respiratory Rate: 16 br/min Body Mass Index: 24.09 kg/m2 Respiratory Rate: 16 br/min Body surface area: 1.7 Respiratory Rate: 16 br/min ?? Systolic Blood Pressure: 121 mm Hg ?? Diastolic Blood Pressure: 58 mm Hg ?? Oxygen Saturation: 99 % ?? Studies Pending All tests and labs ordered during this hospital stay have been completed unless listed below. Please discuss all pending results with your provider listed above in these instructions. ?? COVID-19 (2019 Novel Coronavirus) PCR What to do next Instructions From Your Doctor PARTIAL HOSPITALIZATION PROGRAM: ?? A referral has been placed on your behalf to: ?? The Partial Hospitalization Program (PHP) at [address] #[phone] (Central Intake) #[phone] (Main number)?? Discharge Orders Diet:??Diabetic Diet Activity:?? OOB ad Odette Wound Care:??- Code Status:?? Full Resuscitation Condition:??Good Prognosis:??Good Scheduled Follow-Up Appointments Wednesday 10:30 AM EST ?? With: Mitesh COLLADO, Keira Rob Where: [facility] [address] [address]- Wednesday 2:00 PM EDT ?? With: Where: [facility] You Need to Schedule the Following Appointments Follow Up with??Keira Sagastume When??09/29/2022 10:30 AM EST Where: [address] [place] [phone] Business (1) Follow Up with??Follow up with GI as outpatient as scheduled at [facility] When?? Follow Up with??Cece Manley When??Within 2 to 3 weeks Where: [facility] [place] [address]- [facility] (1) Discharge Medications AURA LR :1975 Visit Date:09/09/2022 Medications: Please continue your medications until treatment is completed or stopped by your provider. Medications not listed below should be discontinued. Discuss any questions related to medications with your provider. What How Much When Instructions Next Dose New Mirtazapine (Remeron 15 mg oral tablet) 1 tab(s) Oral Daily at Bedtime Duration: 30 Days Pickup at [place] [address] September 12, 2022 Bedtime dose New Tramadol (traMADol 50 mg oral tablet) 1 tab(s) Oral Daily at Bedtime as needed for as needed for pain Duration: 3 Days Pickup at [place] [address] September 12, 2022 Bedtime dose Changed Ondansetron (ondansetron 4 mg oral tablet, disintegrating) 1 tab(s) Oral Every 8 hours as needed for Nausea & Vomiting Duration: 3 Days Pickup at [facility] 3 Available anytime after 5pm today, September 12, 2022 Changed Pantoprazole (pantoprazole 40 mg oral delayed release tablet) 40 Milligram Oral Daily Duration: 30 Days Pickup at [place] [address] September 13, 2022 morning dose Unchanged plecanatide (Trulance 3 mg oral tablet) 1 tab(s) Oral Daily September 13, 2022 morning dose Pharmacy Information [facility] 3: [address] [place], [place] [id number] [phone] ?? What How Much When Comments Stop Taking Albuterol (albuterol CFC free 90 mcg/ inh inhalation aerosol) 2 puff(s) Inhalation 4 times a day as needed for for wheezing Duration: 30 Days Stop Taking Ipratropium Nasal (ipratropium nasal 21 mcg/ inh spray) 1 spray(s) Nares, Both Daily at Bedtime Stop Taking Metoclopramide (metoclopramide 5 mg oral tablet) TAKE 1 TABLET BY MOUTH FOUR TIMES DAILY ?? Stop Taking Milk of Magnesia (Milk of Magnesia 8% oral suspension) 30 Milliliter Oral Daily at Bedtime as needed for for constipation Stop Taking Montelukast (Singulair) Oral Daily Stop Taking PROCHLORperazine (prochlorperazine 25 mg rectal suppository) UNWRAP AND INSERT 1 SUPPOSITORY RECTALLY TWICE DAILY NEEDED FOR NAUSEA OR VOMITING ?? Test Results Below is a partial list of the most recent Laboratory test results done prior to this discharge. You may have had other tests and procedures not included in this list. Please discuss all test resultswith your provider. Alcohol Level (09/09/2022) ???Ethanol, Serum or Plasma - NONE DETECTED Basic Metabolic Panel (09/11/2022) ???Sodium - 139 mmol/L???Potassium - 3.7 mmol/L???Chloride - 104 mmol/L???Bicarbonate Level - 24 mmol/L???Anion Gap - 11???Glucose Level - 111 mg/dL???BUN - 6 mg/dL???Creatinine-Blood - 0.9 mg/dL???Estimated GFR Creatinine - 82 ML/MIN/1.73 M2???Calcium - 8.5 mg/dL CBC w/ Differential (09/11/2022) ???WBC - 9.8 k/mm3???RBC - 4.07 m/mm3???Hgb - 11.0 Gm/dL???Hct - 33.5 %???MCV - 82.3 femtoliters???MCH - 27.0 pg???MCHC - 32.8 g/dL???Platelet Count - 257 k/mm3???RDW-SD - 40.2 femtoliters???MPV - 10.0 femtoliters???Nucleated RBC (Automated) - 0.0 #/100 WBC'S???Abs. NRBC - 0.0 k/mm3???Abs. Neut - 6.9 k/mm3???Abs. Lymph - 2.1 k/mm3???Abs. [place] - 0.7 k/mm3???Abs. Eo - 0.1 k/mm3???Abs. Baso - 0.0 k/mm3???Neut % - 70.5 %???Lymph % - 21.2 %???[place] % - 6.7 %???Eos % - 0.7 %???Baso % - 0.4 %???Imm Gran - 0.5 %???Abs. Imm Gran - 0.1 k/mm3 Cocaine Urine Screen (09/09/2022) ???Cocaine Metabolite Screen, Urine - NONE DETECTED Comprehensive Metabolic Panel (09/09/2022) ???Sodium - 140 mmol/L???Potassium - HEMOLYZED???Chloride - 100 mmol/L???Bicarbonate Level - 23 mmol/L???Anion Gap - 17???Glucose Level - 170 mg/dL???BUN - 14 mg/dL???Creatinine-Blood - 1.0 mg/dL???Estimated GFR Creatinine - 74 ML/MIN/1.73 M2???Calcium - 9.7 mg/dL???Protein, Total - 7.4 Gm/dL???Albumin - 4.9 Gm/dL???AG Ratio - 2.0???Alkaline Phosphatase - 75 units/L???AST (SGOT) - 24 units/L???ALT (SGPT) - 15 units/L???Bilirubin, Total - 0.6 mg/dL COVID-19 RNA POC (09/09/2022) ???COVID-19 POC Result - NEGATIVE GLUCOSE POC (09/12/2022) ???Glucose, POC - 136 mg/dL HOLD BLUE TUBE (09/09/2022) ???Hold Blue Top - SPECIMEN DISCARDED AFTER 4 HOURS. Lactate Level (09/09/2022) ???Lactate - 2.8 mmol/L Lipase (09/09/2022) ???Lipase - 22 units/L Opiate Screen Urine (09/09/2022) ???Opiate Screen, Urine - NONE DETECTED Serum Qualitative (09/09/2022) ??? Serum Qual - NEGATIVE Urinalysis w/hold for Urine Culture (09/09/2022) ???Appear/Color, Urine - COLORLESS???Specific [place], Urine - 1.012???pH, Urine - 7.5???Albumin, Urine - NEGATIVE???Glucose, Urine - NEGATIVE???Ketones, Urine - 2+???Bilirubin, Urine - NEGATIVE???Hemoglobin, Urine - NEGATIVE???Nitrite, Urine - NEGATIVE???Leukocyte, Urine - NEGATIVE???Urobilinogen - NORMAL???WBC's, Urine - 1 /HPF???RBC's, Urine - 1 /HPF???Squamous Epith - 3 /HPF???Hold Urine Culture - Testing available 48 hours from time of collection. Allergies (NKA means No Known Allergies) HumaLOG??(Hives) Victoza??(Vomiting) Problems Active Problems??(7) Asthma?? Chronic vomiting?? Diabetes mellitus, type II, insulin dependent?? Dysphagia?? Nasal congestion?? STEVE (obstructive sleep apnea)?? Seasonal allergies?? Education Materials Below is the list of Educational Leaflet Providered with your Discharge Instructions. Understanding Functional Dyspepsia?? Depression: Tips to Help Yourself?? Depression?? Valuables and Belongings I fully understand and agree that [facility] accepts no responsibility for all my personal property including clothing, toilet articles, radios, jewelry, dentures, hearing aids, rings, money, or any other property that is in my possession or is brought to me after admission. I understand certain valuables may be placed in a hospital safe for a short period of time. I understand that the hospital is not liable for loss or damage due to accident, fire, or other natural occurrence while said property is in the safe. I accept full responsibility for any personal property that I keep with me, and will not hold the hospital responsible in case of loss or disappearance. I acknowledge that i have been encouraged to send valuables and belongings home. ?? Safe envelope number: [id number] Review of Valuable and Belonging List: Other: crisis Date for Pt to Sign Valuables/Belongings: 09/09/22 09:16:00 ?? Other Discharge Information ? Pulmonary Rehab Status?? Pulmonary Rehab Discharge Status?? Respiratory Rate: 16 br/min Respiratory Rate: 16 br/min Respiratory Rate: 16 br/min ? Common Emergency Awareness Tips IS IT A STROKE? Act FAST and Check for these signs: FACE Does the face look uneven? ARM Does one arm drift down? SPEECH Does their speech sound strange? TIME Call at any sign of stroke ?? Heart Attack Signs Chest discomfort: Most heart attacks involve discomfort in the center of the chest and lasts more than a few minutes, or goes away and comes back. It can feel like uncomfortable pressure, squeezing, fullness or pain. Discomfort in upper body: Symptoms can include pain or discomfort in one or both arms, back, neck, jaw or stomach. Shortness of breath: With or without discomfort. Other signs: Breaking out in a cold sweat, nausea, or lightheaded. Remember, MINUTES DO MATTER. If you experience any of these heart attack warning signs, call to get immediate medical attention! ?? Smoking can increase your chances of developing chronic health problems and can cause harmful effects to other family members in your house. If you smoke, you are strongly encouraged to quit. Please call [facility] at [phone] or [phone] ([phone]) or log in to [email or web address] for referrals to smoking cessation programs. ?? The National Suicide Prevention Hotline is available 22/02 if you or someone you know needs to find a reason to keep living. By calling 5-137-966-SomethingIndie (7284) you'll be connected to a skilled, trained counselor at a crisis center in your area. INPATIENT DISCHARGE INSTRUCTIONS SIGNATURE PAGE AURA LR Location:[facility] Registration Date and Time:09/09/2022 07:49 EST Primary Care Physician: Cece Lund, I AURA LR, have received the above patient education materials/instructions and have verbalized understanding. If ambulance or transport services are being used I further acknowledge being given a choice of service. ?? If you need to contact me, please call me at this number: . Patient/Home Specialist Name: Patient/Home Specialist Signature: Relationship to Patient: Witness Name/Signature: Date: * Chelly Combs MD: SIGN, PERFORM, SIGN, VERIFY Event Display: Patient Education Handout Authored Date: [id number] * Chelly Combs MD: PERFORM Event Display: Patient Education Leaflets Authored Date: [id number] Understanding Functional Dyspepsia ?? 35264 Understanding Functional Dyspepsia Dyspepsia is a set of symptoms in the upper belly (abdomen) that are linked to digestion. You may feel full too quickly after eating, and have pain or a burning feeling. Or you may have other problems. In some cases, dyspepsia is caused by an infection or physical problem that can be treated. But functional dyspepsia is a group of symptoms that may have different causes in different people. The symptoms are long-term (chronic). You???ll need to learn ways to manage your symptoms over time. Thismay include taking medicines. It may also mean making changes to your diet and managing your mentalhealth. ??How to say it [id number] ?? What causes functional dyspepsia? Experts are still learning what may cause functional dyspepsia. The symptoms are likely from a digestive tract that is very sensitive to certain things. These may include stress and some foods and drinks. In some cases, the symptoms may start after an infection with bacteria, a virus, or parasites.In other cases, the movement (motility) of the digestive tract is abnormal. Or the ability of the stomach to handle food has changed. ?? Symptoms of functional dyspepsia Symptoms have lasted for 3 months or more and can include: ??? Feeling full too quickly ??? Burping a lot ??? A burning feeling in the middle of your chest ??? Pain that doesn???t get better after a bowel movement or passing gas ??? Upset stomach (nausea) orvomiting after eating ??? Feeling bloated ??? Loss of appetite You may also have symptoms of irritable bowel syndrome (IBS). These can include ongoing constipation or diarrhea. ?? Treatment for functional dyspepsia In functional dyspepsia, you may have an upper endoscopy , but the results are often normal. But this test may be advised, depending on your specific case. This is to rule out other possible causes of your symptoms. Certain symptoms may require more tests. Your healthcare provider may prescribe a medicine to help ease your symptoms. You may take one or more of these: ??? Medicine to reduce stomach acid. You may take an H2-receptor antagonist. Or you may take a proton pump inhibitor (PPI). These medicines lower the amount of acid your stomach makes. ??? Medicine to increase digestive movement or allow the stomach to handle food better. ??? Neuromodulator medicine. Some of these types of medicines may help to reduce symptoms. ??? Medicine to treat a stomach bacteria. If tests show you have a stomach bacteria, you will be prescribed antibiotics. ?? Living with functional dyspepsia To manage your condition over time, you will also need to: ??? Change your diet. Caffeine, alcohol,and foods that are fatty or spicy can cause symptoms in some people. It may help to keep a diary ofwhen your symptoms occur and what you were eating or drinking. This can help you find out what foods and drinks to avoid. ??? Focus on your mental health. Anxiety, depression, and stress can also cause symptoms in some people. Learning ways to manage your mental health can help reduce symptoms. This may include working with a counselor. ?? When to call your healthcare provider Call your healthcare provider right away if you have any of these: ??? Symptoms that don???t get better, or get worse ??? New symptoms ??? Trouble swallowing ??? Vomiting that doesn???t stop ??? Vomiting blood ??? Bloody stool or black tarry stool ??? Unexplained weight loss ?? Last Reviewed Date: 2021 ?? [employer]. All rights reserved. This information is not intended as a substitute for professional medical care. Always follow your healthcare professional's instructions. ?? * Marcy Dumont RN: PERFORM Event Display: Patient Education Leaflets Authored Date: [id number] Depression: Tips to Help Yourself ?? 36480 Depression: Tips to Help Yourself As your healthcare providers help treat your depression, you can also help yourself. Keep in mind that your illness affects you emotionally, physically, mentally, and socially. So full recovery will take time. Take care of your body and your soul, and be patient with yourself as you get better. Self-care ??? Educate yourself. Read about treatment and medicine options. If you have the energy, attend local conferences or support groups. Keep a list of useful websites and helpful books and usethem as needed. This illness is not your fault. Don???t blame yourself for your depression. ??? Manage early symptoms. If you notice symptoms returning, have triggers, or identify other factors that may lead to a depressive episode, get help as soon as possible. Ask trusted friends and family to monitor your behavior and let you know if they see anything of concern. ??? Work with your provider. Find a provider you can trust. Communicate honestly with that person. Share information on your treatment for depression and your reaction to medicines. You may need to try different medicines before finding the right one. ??? Be prepared for a crisis. Know what to do if you have a crisis. Keep the phone number of a crisis hotline handy. Know where your community's urgent care centers and the closest emergency department are. ??? Hold off on big decisions. Depression can cloud your judgment. So wait until you feel better before making major life decisions. These include changing jobs, moving, making an expensive purchase, or getting or . ??? Be patient. Recovering from depression is a process. Don???t be discouraged if it takes some time to feel better. ??? Keep it simple. Depression saps your energy and concentration. So you won???t be able to do all the things you used to do. Set small goals and do what you can. ??? Be with others. Don???t isolate yourself???you???ll only feel worse. Try to be with other people. And take part in fun activities when you can. Go to a movie, ballgame, gnosticist service, or social event. Talk openly with people you can trust. And accept help when it???s offered. ?? Take care of your body People with depression often lose the desire to take care of themselves. That only makes their problems worse. During treatment and afterward, make a point to: ??? Exercise. It???s a great way to take care of your body. And studies have shown that exercise helps fight depression. Aim for 30 minutesof moderate activity a day. Walking in small blocks of time (5-10 minutes) is a good way to start, but anything that gets you moving (gardening, house cleaning) counts. ??? Not use drugs or alcohol. These may ease the pain in the short term. But they???ll only make your problems worse in the long run. ??? Get relief from stress. Ask your healthcare provider for relaxation exercises and techniquesto help ease stress. Consider activities like meditation, yoga, progressive muscle relaxation, or koki chi. ??? Eat right. A balanced and healthy diet helps keep your body healthy. ??? Get adequate sleep. Aim for 8 hours per night. Too much or too little sleep can cause other physical and emotional problems. ?? Last Reviewed Date: 2021 ?? 3843-9694 [employer]. All rights reserved. This information is not intended as a substitute for professional medical care. Always follow your healthcare professional's instructions. ?? * Marcy Dumont RN: PERFORM Event Display: Patient Education Leaflets Authored Date: [id number] Depression ?? [id number] Depression Depression is a very common mental health problem. It's not just a state of being unhappy or sad. It's a true disease. The cause seems to be linked to a change in chemicals that send signals in the brain. These things increase a person???s risk of depression: ??? A family history of depression, alcoholism, or suicide ??? Chronic illness ??? Chronic pain ???Migraine headaches ??? High emotional stress Depression may be easier to see in others. You may have a hard time seeing it in yourself. It can show in many physical and emotional ways. These include: ??? Loss of appetite ??? Overeating ??? Not being able to sleep ??? Sleeping too much ??? A lot of tiredness not linked to physical activity ??? Restlessness or irritability ??? Slowness of movement or speech ??? Feeling sad or withdrawn ??? Loss of interest in things you once enjoyed ??? Trouble??concentrating, remembering,??or making decisions ??? Thoughts of harming or killing yourself, or thoughts that life is not worth living ??? Low self-esteem The treatment for depression may include both medicine and psychotherapy. Antidepressants can ease symptoms. They can also make it easier for you to do daily tasks. Therapy can offer emotional support. It can also help you understand things that may be causing the depression. Home care ??? Ongoing care and support help people manage this disease. Find a healthcare provider and therapist who meet your needs. Get help when you feel like you may be getting ill. ??? Be kind to yourself. Make it a point to do things that you enjoy. This may be gardening, walking in nature, or going to a movie. Reward yourself for small successes. ??? Take care of your body. Eat a balanced diet. Eat foods low in saturated fat. Eat a lot of fruits and vegetables. Exercise at least 3 times a week for 30 minutes. Even mild to moderate exercise like brisk walking can make you feel better. ??? Take medicine as prescribed. Don't stop your medicine or change the dose unless you talk with your healthcare provider. ??? Once you start medicine, expect your symptoms to get better slowly. Depression will lift over time. It doesn't get better right away. Ask your healthcare provider how long it will take for a medicine to start working. ??? Don't share your medicine. Don???t use someone else's medicine. ??? Tell your healthcare providers all the medicines you take. This includes prescription and hjfc-svn-gtidead medicines. It includes vitamins and herbal supplements. Some supplements caninteract with medicines. They can cause dangerous side effects. Ask your pharmacist about medicine interactions when you have questions. ??? Don't make major decisions until you feel better. This incl udes things such as a job change, a divorce, or a marriage. ??? Don't drink alcohol. It can make depression worse. ??? Talk with your family and??trusted friends??about your feelings and thoughts.??Ask them to help you notice behavior changes early. You can then get help and, if needed, your medicine can be changed. ??? Talk with your healthcare provider if you are not getting better. They may change your medicine or have you try another treatment. ?? Follow-up care Follow up with your healthcare provider as advised. ?? Crisis care Call [phone] if you have thoughts of harming yourself or others. When you call or text [phone], you will beconnected to trained crisis counselors. An online chat option is also available. BackType is free and available 22/02. 988 counselors will work with 911 to help you get the care you need. Call 988 if you: ??? Have suicidal thoughts, a suicide plan, and a way to carry out the plan ??? Have serious thoughts of hurting someone else ??? Have trouble breathing ??? Are??very confused ??? Feel very drowsy or have??trouble awakening ??? Faint ??? Have new chest pain that becomes more severe, lasts longer, or spreads into your shoulder, arm, neck, jaw, or back ?? When to get medical care Call your healthcare provider right away if any of these happen: ??? Your symptoms get worse ??? You have extreme depression, fear, anxiety, or anger toward yourself or others ??? You feel out of control ??? You feel that you may try to harm yourself or another ??? You hear voices other people don't hear ??? You see things other people don't see ??? You don't sleep or eat for 3 days in a row ??? Friends or family express concern over your behavior and ask you to get help ?? Last Reviewed Date: 2021 ?? [id number] [employer]. All rights reserved. This information is not intended as a substitute for professional medical care. Always follow your healthcare professional's instructions. ?? Patient Care team information Care Team Personnel Name: Aaron Gonzalez RN Position: [facility] RN Member Role: Primary Care Nurse Name: Damon Whitaker RN Position: [facility] RN Member Role: Primary Care Nurse Name: Pamela Crystal RN Position: [facility] SN RN Member Role: Primary Care Nurse Name: Zaida Noriega RN Position: [facility] RN Member Role: Primary Care Nurse Name: Cece Lund Position: [facility] Associate Professional Member Role: PCP Address: Address: [address] [place] [address]- [place] Name: Faiza Darby RN Position: [facility] RN Member Role: Primary Care Nurse Name: Zoë Hastings Position: [facility] Outreach Member Role: Lifetime Consulting Physician Name: Pamela Castellano RN Position: [facility] RN Member Role: Primary Care Nurse Name: Vidya Zhu RN Position: [facility] RN Member Role: Primary Care Nurse Name: Patricia Curtis RN Position: [facility] RN Member Role: Primary Care Nurse Name: Jeanne Ray Position: [facility] Outreach Member Role: Lifetime Consulting Physician Name: Marco BURKETT Attending Position: [facility] ED Medicine MD Name: Anish Posey Position: [facility] ED TA [facility] Member Role: Patient Care Provider Name: Alma Delia Horner Position: [facility] Associate Professional Member Role: ED Physician Submarine Element Coordinator Address: Address: [address] [place] [address] - [place] Name: Aaron Marvin RN Position: [facility] ED RN W/OE and Tasks Member Role: Patient Care Provider Care Team Related Persons Name: JJ FLETCHER Address: [place] [address] Name: AARON WIN Address: [place] [address] Name: CHARLENE TANG Address: home [address] [place] [address] Name: CORTEZ JOSUE Address: home [place], [place] Name: ANGELIQUE BROWN Address: [place] [address]
--- OUTSIDE RECORDS SUMMARY | 2023-07-23 12:22 | XMS_ITS | Continuity of Care Document ---
Author Name Unknown Organization [facility] ter Address [address] [place] [address]- Care Team Providers Care Composition Mixer Name Role Phone Cece Lund Primary Care Physician [place] [facility] [place] - 04/18/[address] [address]- Encounter Diagnosis Nausea(Final) - 04/18/21 Discharge Disposition: A-D/C Home Attending Physician: Oli COLLADO, Gunjan Garcia Admitting Physician: Gunjan Baird MD Referring Physician: Not on Staff, Referring MD Allergies, Adverse Reactions, Alerts Substance Reaction Severity Status HumaLOG Hives Active Victoza Vomiting Active Medications albuterol CFC free 90 mcg/inh inhalation aerosol 2, puffs, Inhalation, 4 times a day, PRN, # 1 each, Refills 3, Tot. Refills 3, Maintenance, 11/19/20 9:39:00 EDT, Aerosol, Route to Pharmacy Electronically, [id number], [facility], 162, cm, 11/19/20 8:17:00 EDT,... Start Date: 11/19/20 Stop Date: 03/19/21 Status: Ordered Flonase 50 mcg/inh nasal spray 1 sprays, Nares, Both, 2 times a day, # 16 Gm, 0 Refills, Maintenance, 10/11/18 9:43:36 EDT, [place] Start Date: 10/11/18 Status: Ordered Insulin Lispro [...] 0 Refills, Maintenance, 02/20/20 11:38:00 EDT, Solution, [facility] #[id number], 162, cm, 02/20/20 8:43:00 EDT, Height, 71.85, kg, 02/19/20 2:51:00 EDT, Dry Weight Start Date: 02/20/20 Status: Ordered Milk of Magnesia 8% oral suspension 30 mL = 2.4 Gm, By Mouth, Daily at bedtime, PRN for constipation, # 300 mL, 0 Refills, Maintenance,11/19/20 9:40:00 EDT, Suspension, [facility], Partial fill upon patient request if the prescription is for a schedule II opioid drug., 16... Start Date: 11/19/20 Status: Ordered ondansetron 4 mg oral tablet 1 tablet = 4 mg, By Mouth, Every 8 hours, PRN as needed for nausea/vomiting, # 10 tablet, 0 Refills, Maintenance, 04/20/20 16:58:00 EDT, Tablet, [facility] #[id number], 162, cm, 03/07/20 15:35:00 EDT, Height, 71.85, [...] to oldest [Reference Range]: 1 2 3 Oxygen Saturation [94-100 %] 99 % (04/18/21 10:16 PM) 99 % (04/18/21 8:14 PM) 100 % (04/18/21 5:59 PM) Pulse Rate [55-90 bpm] 87 bpm (04/18/21 10:16 PM) 88 bpm (04/18/21 8:14 PM) 104 bpm *H* (04/18/21 5:59 PM) Blood Pressure [90-138/55-84 mm Hg] 117/70mm Hg (04/18/21 10:16 PM) 122/72mm Hg (04/18/21 8:14 PM) 127/85mm Hg (04/18/21 5:59 PM) Respiratory Rate [16-30 br/min] 19 br/min (04/18/21 10:16 PM) 17 br/min (04/18/21 8:14 PM) 16 br/min (04/18/21 5:59 PM) Temperature [96.8-100.4 DegF] 98.2 DegF (04/18/21 10:16 PM) 98.0 DegF (04/18/21 8:14 PM) 99.4 DegF (04/18/21 5:59 PM) Mode of Delivery (Oxygen) Room air (04/18/21 10:16 PM) Room air (04/18/21 8:14 PM) Room air (04/18/21 5:59 PM) Blood pressure sites Arm, left (04/18/21 10:16 PM) Arm, left (04/18/21 8:14 PM) Arm, left (04/18/21 5:59 PM) Temperature Route Oral (04/18/21 10:16 PM) Oral (04/18/21 8:14 PM) Oral (04/18/21 5:59 PM) Social History Social History Type Response Smoking Status Current some day smo ker; Type: Cigarettes entered on: 04/14/17 Sex
--- OUTSIDE RECORDS SUMMARY | 2023-07-23 12:22 | XMS_ITS | Continuity of Care Document ---
Author Name Unknown Organization [facility] ter Address [address] [place] [address]- Care Team Providers Care Wedding Cake Designer Name Role Phone Cece Lund Primary Care Physician [phone] Encounter [facility] [place] Date(s): 10/29/21 - 10/29/[address] [address]- Discharge Disposition: A-D/C Home Attending Physician: Mc Gama MD Admitting Physician: Mc Gama MD Referring Physician: Not on Staff, Referring MD Allergies, Adverse Reactions, Alerts Substance Reaction Severity Status HumaLOG Hives Active Victoza Vomiting Active Medications albuterol CFC free 90 mcg/inh inhalation aerosol 2, puffs, Inhalation, 4 times a day, PRN, # 1 each, Refills 3, Tot. Refills 3, Maintenance, 11/19/20 9:39:00 EDT, Aerosol, Route to Pharmacy Electronically, [id number], [facility], 162, cm, 11/19/20 8:17:00 EDT,... Start Date: 11/19/20 Stop Date: 03/19/21 Status: Ordered Diflucan 150 mg oral tablet 1 tablet = 150 mg, By Mouth, Once, Take on WednesdayAugust 25, # 1 tablet, 0 Refills, Soft Stop, 08/22/21 23:40:00 EST, Tablet, [facility] #[id number], Partial fill upon patient request if the prescription is for a schedule II opioid drug., 163,... Start Date: 08/22/21 Status: Ordered erythromycin ethylsuccinate 200 mg/5 ml oral suspension 5 mL = 200 mg, By Mouth, Every 8 hours, for 10 days, # 150 mL, 0 Refills, Acute 11/08/21 20:36:00 EDT, 10/29/21 20:36:00 EDT, Suspension, [email or web address] #[id number], Partial fill upon patient request if the prescription is for a schedule II opioid dr... Start Date: 10/29/21 Stop Date: 11/08/21 Status: Ordered Flonase 50 mcg/inh nasal spray 1 sprays, Nares, Both, 2 times a day, # 16 Gm, 0 Refills, Maintenance, 10/11/18 9:43:36 EDT, [place] Start Date: 10/11/18 Status: Ordered Insulin Lispro [...] mL, 1 Refills, Maintenance, 09/29/21 12:07:00 EST, [facility] #[id number], Partial fill upon patient request if the prescription is for a schedule II opioid drug., 1 sprays Nares, Both Daily at bedtim... Start Date: 09/29/21 Status: Ordered Lantus Solostar Pen 100 units/mL subcutaneous solution = 25 units, Subcutaneous Injection, Daily at bedtime, # 10 mL, 0 Refills, Maintenance, 02/20/20 11:38:00 EDT, Solution, [facility] #[id number], 162, cm, 02/20/20 8:43:00 EDT, Height, 71.85, kg, 02/19/20 2:51:00 EDT, Dry Weight Start Date: 02/20/20 Status: Ordered Milk of Magnesia 8% oral suspension 30 mL = 2.4 Gm, By Mouth, Daily at bedtime, PRN for constipation, # 300 mL, 0 Refills, Maintenance,11/19/20 9:40:00 EDT, Suspension, [facility], Partial fill upon patient request if the prescription is for a schedule II opioid drug., 16... Start Date: 11/19/20 Status: Ordered ondansetron 4 mg oral tablet 1 tablet = 4 mg, By Mouth, Every 8 hours, PRN as needed for nausea/vomiting, # 10 tablet, 0 Refills, Maintenance, 04/20/20 16:58:00 EDT, Tablet, [facility] #[id number], 162, cm, 03/07/20 15:35:00 EDT, Height, 71.85, [...] (obstructive sleep apnea)(Confirmed) Active Seasonal allergies(Confirmed) Active Vital Signs Most recent to oldest [Reference Range]: 1 2 3 Oxygen Saturation [94-100 %] 100 % (10/29/21 8:03 PM) 100 % (10/29/21 5:18 PM) 100 % (10/29/21 4:20 PM) Pulse Rate [55-90 bpm] 72 bpm (10/29/21 8:03 PM) 60 bpm (10/29/21 5:18 PM) 77 bpm (10/29/21 4:20 PM) Blood Pressure [90-138/55-84 mm Hg] 131/66mm Hg (10/29/21 8:03 PM) 156/68mm Hg *H* (10/29/21 5:18 PM) 141/72mm Hg *H* (10/29/21 4:20 PM) Respiratory Rate [16-30 br/min] 15 br/min *L* (10/29/21 8:03 PM) 16 br/min (10/29/21 5:18 PM) 20 br/min (10/29/21 2:16 PM) Temperature [96.8-100.4 DegF] 98.9 DegF (3/30/22 8:03 PM) 98.2 DegF (10/29/21 4:20 PM) 98.4 DegF (10/29/21 2:16 PM) Mode of Delivery (Oxygen) Room air (10/29/21 8:03 PM) Room air (10/29/21 5:18 PM) Room air (10/29/21 4:20 PM) Blood pressure sites Arm, right (10/29/21 8:03 PM) Arm, left (10/29/21 4:20 PM) Arm, right (10/29/21 2:16 PM) Temperature Route Oral (10/29/21 8:03 PM) Oral (10/29/21 4:20 PM) Oral (10/29/21 2:16 PM) Social History Social History Type Response Smoking Status Current some day smo ker; Type: Cigarettes entered on: 04/14/17 Sex
--- OUTSIDE RECORDS SUMMARY | 2023-07-23 12:22 | XMS_ITS | Continuity of Care Document ---
Author Name Unknown Organization [facility] Address [address] [place] [address]- Care Team Providers Care Director Bioinformatics Name Role Phone Cece Lund Primary Care Physician Encounter [facility] Date(s): 02/08/21 - 02/08/[address] [address]- Discharge Disposition: A-D/C Walkout Attending Physician: Mc Haile MD Admitting Physician: Mic COLLADO, Mc Meadows Referring Physician: Not on Staff, Referring MD Allergies, Adverse Reactions, Alerts Substance Reaction Severity Status HumaLOG Hives Active Victoza Vomiting Active Medications albuterol CFC free 90 mcg/inh inhalation aerosol 2, puffs, Inhalation, 4 times a day, PRN, # 1 each, Refills 3, Tot. Refills 3, Maintenance, 11/19/20 9:39:00 EDT, Aerosol, Route to Pharmacy Electronically, [id number], [facility], 162, cm, 11/19/20 8:17:00 EDT,... Start Date: 11/19/20 Stop Date: 03/19/21 Status: Ordered Flonase 50 mcg/inh nasal spray 1 sprays, Nares, Both, 2 times a day, # 16 Gm, 0 Refills, Maintenance, 10/11/18 9:43:36 EDT, [place] Start Date: 10/11/18 Status: Ordered Insulin Lispro [...] 0 Refills, Maintenance, 02/20/20 11:38:00 EDT, Solution, [facility] #[id number], 162, cm, 02/20/20 8:43:00 EDT, Height, 71.85, kg, 02/19/20 2:51:00 EDT, Dry Weight Start Date: 02/20/20 Status: Ordered Milk of Magnesia 8% oral suspension 30 mL = 2.4 Gm, By Mouth, Daily at bedtime, PRN for constipation, # 300 mL, 0 Refills, Maintenance,11/19/20 9:40:00 EDT, Suspension, [facility], Partial fill upon patient request if the prescription is for a schedule II opioid drug., 16... Start Date: 11/19/20 Status: Ordered ondansetron 4 mg oral tablet 1 tablet = 4 mg, By Mouth, Every 8 hours, PRN as needed for nausea/vomiting, # 10 tablet, 0 Refills, Maintenance, 04/20/20 16:58:00 EDT, Tablet, [facility] #[id number], 162, cm, 03/07/20 15:35:00 EDT, Height, 71.85, [...] Most recent to oldest [Reference Range]: 1 Height 162.56 cm (02/08/21 7:55 PM) Weight 60.1 kg (02/08/21 7:55 PM) Oxygen Saturation [94-100 %] 100 % (02/08/21 7:55 PM) Pulse Rate [55-90 bpm] 108 bpm *H* (02/08/21 7:55 PM) Blood Pressure [90-138/55-84 mm Hg] 132/ 99mm Hg (02/08/21 7:55 PM) Respiratory Rate [16-30 br/min] 18 br/mi n (02/08/21 7:55 PM) Temperature [96.8-100.4 DegF] 98.4 DegF (02/08/21 7:55 PM) Mode of Delivery (Oxygen) Room air (02/08/21 7:55 PM) Blood pressure sites Arm, left (02/08/21 7:55 PM) Temperature Route Temporal (02/08/21 7:55 PM) Dry Weight 60.1 kg (02/08/21 7:55 PM) Weight Obtained Via Standing scale (02/08/21 7:55 PM) Dry Weight Obtained Via Standing scale (02/08/21 7:55 PM) Social History Social History Type Response Smoking Status Current some day smo ker; Type: Cigarettes entered on: 04/14/17 Sex
--- OUTSIDE RECORDS SUMMARY | 2023-07-23 12:22 | XMS_ITS | Continuity of Care Document ---
Author Name Unknown Organization [facility] ter Address [address] [place] [address]- Care Team Providers Care Manager Patient Name Role Phone Cece Lund Primary Care Physician [phone] Encounter [facility] [place] Date(s): 04/11/22 - 04/11/[address] [address]- Discharge Disposition: A-D/C Walkout Attending Physician: Not [...] 9:39:00 EDT, Aerosol, Route to Pharmacy Electronically, [id number], [facility], 162, cm, 11/19/20 8:17:00 EDT,... Start Date: 11/19/20 Stop Date: 03/19/21 Status: Ordered ipratropium nasal 21 mcg/inh spray 1 sprays, Nares, Both, Daily at bedtime, # 30 mL, 1 Refills, Maintenance, 09/29/21 12:07:00 EST, [facility] #[id number], Partial fill upon patient request if the [...] mL, 0 Refills, Maintenance,11/19/20 9:40:00 EDT, Suspension, [facility], Partial fill upon patient request if the prescription is for a schedule II opioid drug., 16... Start Date: 11/19/20 Status: Ordered ondansetron 4 mg oral tablet 1 tablet = 4 mg, By Mouth, Every 8 hours, PRN as needed for nausea/vomiting, # 10 tablet, 0 Refills, Maintenance, 04/20/20 16:58:00 EDT, Tablet, [facility] #[id number], 162, cm, 03/07/20 15:35:00 EDT, Height, 71.85, kg, 02/19/20 2:51:00 EDT, Dry... Start Date: 04/20/20 Status: Ordered ondansetron 4 mg oral tablet, disintegrating 1 tablet = 4 mg, By Mouth, Every 8 hours, PRN as needed for nausea/vomiting, for 3 days, # 12 tablet, 0 Refills, Acute 04/14/22 19:32:00 EDT, 04/11/22 19:32:00 EDT, DIS Tablet, [facility] #[id number], Partial fill upon patient request if the pres... Start Date: 04/11/22 Stop Date: 04/14/22 Status: Ordered prochlorperazine 25 mg rectal suppository UNWRAP AND INSERT 1 SUPPOSITORY RECTALLY TWICE DAILY NEEDED FOR NAUSEA OR VOMITING Start Date: 12/16/21 Status: Ordered Protonix 20 mg oral delayed release tablet 2 tablet = 40 mg, By Mouth, Daily, 0 Refills, Maintenance, 12/15/21 19:49:00 EDT Start Date: 12/15/21 Status: Ordered Reglan 10 mg oral tablet 1 tablet = 10 mg, By Mouth, 4 times a day, for 7 days, # 28 tablet, 0 Refills, Acute 04/18/22 19:31:00 EDT, 04/11/22 19:31:00 EDT, Tablet, [facility] #[id number], Partial fill upon patient request if the prescription is for a schedule II opioid d... Start Date: 04/11/22 Stop Date: 04/18/22 Status: Ordered Singulair By Mouth, Daily, 0 [...] [Reference Range]: 1 2 Height 163 cm (04/11/22 9:13 AM) Weight 67 kg (04/11/22 9:13 AM) Oxygen Saturation [94-100 %] 100 % (04/11/22 10:02 AM) 100 % (04/11/22 8:28 AM) Pulse Rate [55-90 bpm] 85 bpm (04/11/22 10:02 AM) 81 bpm (04/11/22 8:28 AM) Blood Pressure [90-138/55-84 mm Hg] 154/ 91mm Hg *H* (04/11/22 10:02 AM) 151/78mm Hg *H* (04/11/22 8:28 AM) Respiratory Rate [16-30 br/min] 20 br/mi n (04/11/22 8:28 AM) Temperature [96.8-100.4 DegF] 97.9 DegF (04/11/22 10:02 AM) 97.8 DegF (04/11/22 8:28 AM) Mode of Delivery (Oxygen) Room air (04/11/22 10:02 AM) Room air (04/11/22 8:28 AM) Blood pressure sites Arm, right (04/11/22 10:02 AM) Temperature Route Oral (04/11/22 10:02 AM) Oral (04/11/22 8:28 AM) Dry Weight 67 kg (04/11/22 9:13 AM) Social History Social History Type Response Smoking Status Current some day smo ker; Type: Cigarettes entered on: 04/14/17 Sex Care Team Personnel Name: Cece Lund Address: [address] [place] [address]-
--- OUTSIDE RECORDS SUMMARY | 2023-07-23 12:22 | XMS_ITS | Continuity of Care Document ---
Author Name Unknown Organization [facility] Address [address] [place] [address]- Care Team Providers Care Hoop Cutter Name Role Phone Cece Lund Primary Care Physician [phone] [id number] Date(s): 10/27/22 - 11/26/[address] [address] Attending Physician: Marbella Watkins Admitting Physician: Marbella Watkins Referring Physician: AdmtrMarbella Allergies, Adverse Reactions, Alerts [...] 0 Refills, Maintenance, 09/12/22 10:08:00 EST, Tablet, [facility], Partial fill upon patient request [...] Team Personnel Name: Aaron Gonzalez RN Position: [facility] RN Member Role: Primary Care Nurse Name: Damon Whitaker RN Position: [facility] RN Member Role: Primary Care Nurse Name: Zaida Noriega RN Position: [facility] ED RN W/OE and Tasks Member Role: Primary Care Nurse Name: Idania Sagastume RN Position: [facility] RN Supv Member Role: Primary Care Nurse Name: Cece Lund Position: [facility] Associate Professional Member Role: PCP Address: Address: [address] [place] [address] Name: Zoë Hastings Position: S Outreach Member Role: Lifetime Consulting Physician Name: Renee Mckeon RN Position: [facility] RN Supv Member Role: Primary Care Nurse Name: Pamela Castellano RN Position: S RN Member Role: Primary Care Nurse Name: Vidya Zhu RN Position: S RN Member Role: Primary Care Nurse Name: Patricia Curtis RN Position: [facility] RN Member Role: Primary Care Nurse Name: Jeanne Ray Position: [facility] Outreach Member Role: Lifetime Consulting Physician Care Team Related Persons Name: JJ FLETCHER Address: [place] [address] Name: AARON WIN Address: [place] [address] Name: CHARLENE TANG Address: home [address] [place] [address] Name: CORTEZ JOSUE Address: [place] [address] Name: ANGELIQUE BROWN Address: [place] [address]
--- OUTSIDE RECORDS SUMMARY | 2023-07-23 12:22 | XMS_ITS | Continuity of Care Document ---
Author Name Unknown Organization [facility] ter Address [address] [place] [address]- Care Team Providers Care Company Miner Blasting Name Role Phone Cece Lund Primary Care Physician Encounter [facility] [place] Date(s): 05/18/20 - 05/19/[address] [address]- [facility] Discharge Disposition: A-D/C Home Attending Physician: Spencer Gutierrez MD Admitting Physician: Spencer Gutierrez MD Referring Physician: Not on Staff, Referring [...] Gm, 0 Refills, Maintenance, 10/11/18 9:43:36 EDT, [place] Start Date: 10/11/18 Status: Ordered Lantus Solostar Pen 100 units/mL subcutaneous solution = 60 units, Subcutaneous Injection, Daily at bedtime, # 10 mL, 0 Refills, Maintenance, 02/20/20 11:38:00 EDT, Solution, [facility] #[id number], 162, cm, 02/20/20 8:43:00 EDT, Height, 71.85, kg, 02/19/20 2:51:00 EDT, Dry Weight Start Date: 02/20/20 Status: Ordered metroNIDAZOLE 0.75% topical gel 1 application, Topically, Daily, # 45 Gm, 0 Refills, Maintenance, 04/20/20 16:57:00 EDT, Gel, [facility] #[id number], 1 application Topically Daily,x5 days, 162, cm, [...] 0 Refills, Maintenance, 04/20/20 16:58:00 EDT, Tablet, [facility] #[id number], 162, cm, 03/07/20 15:35:00 EDT, Height, 71.85, [...] 3 Oxygen Saturation [94-100 %] 100 % (05/19/20 1:11 AM) 99 % (05/18/20 10:15 PM) 100 % (05/18/20 7:53 PM) Pulse Rate [55-90 bpm] 70 bpm (05/19/20 1:11 AM) 87 bpm (05/18/20 10:15 PM) 95 bpm *H* (05/18/20 7:53 PM) Blood Pressure [90-138/55-84 mm Hg] 110/63mm Hg (05/19/20 1:11 AM) 107/70mm Hg (05/18/20 10:15 PM) 132/74mm Hg (05/18/20 7:53 PM) Respiratory Rate [16-30 br/min] 16 br/min (05/19/20 1:11 AM) 18 br/min (05/18/20 10:15 PM) 16 br/min (05/18/20 7:53 PM) Temperature [96.8-100.4 DegF] 97.4 DegF (05/19/20 1:11 AM) 97.7 DegF (05/18/20 10:15 PM) 98.0 DegF (05/18/20 7:53 PM) Mode of Delivery (Oxygen) Room air (05/19/20 1:11 AM) Room air (05/18/20 10:15 PM) Room air (05/18/20 7:53 PM) Blood pressure sites Arm, left (05/19/20 1:11 AM) Arm, left (05/18/20 10:15 PM) Arm, left (05/18/20 7:53 PM) Temperature Route Oral (05/19/20 1:11 AM) Oral (05/18/20 10:15 PM) Oral (05/18/20 7:53 PM) Social History Social History Type Response Smoking Status Current some day smo ker; Type: Cigarettes entered on: 04/14/17 Sex
--- OUTSIDE RECORDS SUMMARY | 2023-07-23 12:22 | XMS_ITS | Continuity of Care Document ---
Author Name Unknown Organization [facility] Address [address] [place] [address]- Care Team Providers Care Broaching Machine Operator Name Role Phone Cece Lund Primary Care Physician En[place] [facility] [place] Date(s): 11/02/22 - 12/02/22 [facility] [address] [place] [address]- Allergies, Adverse Reactions, Alerts Substance Reaction Severity [...] 0 Refills, Maintenance, 09/12/22 10:08:00 EST, Tablet, [facility], Partial fill upon patient [...] Team Personnel Name: Aaron Gonzalez RN Position: [facility] RN Member Role: Primary Care Nurse Name: Damon Whitaker RN Position: [facility] RN Member Role: Primary Care Nurse Name: Zaida Noriega RN Position: S RN Member Role: Primary Care Nurse Name: Idania Sagastume RN Position: [facility] RN Supv Member Role: Primary Care Nurse Name: Cece Lund Position: [facility] Associate Professional Member Role: PCP Address: Address: [address] [place] [address] Name: Zoë Hastings Position: S Outreach Member Role: Lifetime Consulting Physician Name: Renee Mckeon RN Position: [facility] RN Supv Member Role: Primary Care Nurse Name: Pamela Castellano RN Position: S RN Member Role: Primary Care Nurse Name: Vidya Zhu RN Position: S RN Member Role: Primary Care Nurse Name: Patricia Curtis RN Position: S RN Member Role: Primary Care Nurse Name: Jeanne Ray Position: S Outreach Member Role: Lifetime Consulting Physician Care Team Related Persons Name: JJ FLETCHER Address: [place] [address] Name: AARON WIN Address: [place] [address] Name: CHARLENE TANG Address: home [address] [place] [address] Name: CORTEZ JOSUE Address: [place] [address] Name: ANGELIQUE BROWN Address: [place] [address]
--- OUTSIDE RECORDS SUMMARY | 2023-07-23 12:22 | XMS_ITS | Continuity of Care Document ---
Author Name Unknown Organization [facility] Address [address] [place] [phone]- Care Team Providers Care Health Care Legal Assistant Name Role Phone Cece Lund Primary Care Physician [place] [facility] [place] 03/14/20 - 04/13/20 [facility] [address] [address]- [facility] Allergies, Adverse Reactions, Alerts Substance Reaction Severity [...] Gm, 0 Refills, Maintenance, 10/11/18 9:43:36 EDT, [place] Start Date: 10/11/18 Status: Ordered Lantus Solostar Pen 100 units/mL subcutaneous solution = 60 units, Subcutaneous Injection, Daily at bedtime, # 10 mL, 0 Refills, Maintenance, 02/20/20 11:38:00 EDT, Solution, [facility] #[id number], 162, cm, 02/20/20 8:43:00 EDT, Height, 71.85, [...]
--- OUTSIDE RECORDS SUMMARY | 2023-07-23 12:22 | XMS_ITS | Continuity of Care Document ---
Author Name Unknown Organization [facility] ter Address [address] [place] [address]- Care Team Providers Care Altitude Chamber Technician Name Role Phone Cece Lund Primary Care Physician [place] [facility] [place]15[place] - 12/17/[address] [address]- Encounter Diagnosis Vomiting(Final) - 12/15/21 Discharge Disposition: A-D/C Home Attending Physician: Vidal Reich MD Admitting Physician: Sina Warner DO Referring Physician: Not on Staff, Referring MD Allergies, Adverse Reactions, Alerts Substance Reaction Severity Status HumaLOG Hives Active Victoza Vomiting Active Medications albuterol CFC free 90 mcg/inh inhalation aerosol 2, puffs, Inhalation, 4 times a day, PRN, # 1 each, Refills 3, Tot. Refills 3, Maintenance, 11/19/20 9:39:00 EDT, Aerosol, Route to Pharmacy Electronically, [id number], [facility], 162, cm, 11/19/20 8:17:00 EDT,... Start Date: 11/19/20 Stop Date: 03/19/21 Status: Ordered ipratropium nasal 21 mcg/inh spray 1 sprays, Nares, Both, Daily at bedtime, # 30 mL, 1 Refills, Maintenance, 09/29/21 12:07:00 EST, [facility] #[id number], Partial fill upon patient request if the [...] mL, 0 Refills, Maintenance,11/19/20 9:40:00 EDT, Suspension, [facility], Partial fill upon patient request if the prescription is for a schedule II opioid drug., 16... Start Date: 11/19/20 Status: Ordered MorPHINE Inj 2 mg, Injection, IV Push Slowly, Every 4 hours, PRN for Pain , Severe, Routine, 12/16/21 9:41:00 EDT Start Date: 12/16/21 Stop Date: 12/17/21 Status: Discontinued ondansetron 4 mg oral tablet 1 tablet = 4 mg, By Mouth, Every 8 hours, PRN as needed for nausea/vomiting, # 10 tablet, 0 Refills, Maintenance, 04/20/20 16:58:00 EDT, Tablet, [facility] #[id number], 162, cm, 03/07/20 15:35:00 EDT, Height, 71.85, kg, 02/19/20 2:51:00 EDT, Dry... Start Date: 04/20/20 Status: Ordered oxyCODONE 5 mg oral tablet 5 mg, 1, tablet, By Mouth, Every 6 hours, PRN, for 3 days, # 12 tablet, Refills 0, Tot. Refills 0, Acute 12/20/21 9:37:00 EDT, Pain , Severe, 12/17/21 9:37:00 EDT, Route to Pharmacy Electronically, [facility], Partial fill upon patient r... Start Date: 12/17/21 Stop Date: 12/20/21 Status: Ordered prochlorperazine 25 mg rectal suppository [...] (obstructive sleep apnea)(Confirmed) Active Seasonal allergies(Confirmed) Active Results Radiology Reports * Exam Date Time Procedure Performing Provider Status 12/15/21 8:42 AM Chest Portable Rios Biswas; Auth (Verified) Notes: (Chest Portable) Reason For Exam: Shortness of Breath RESULT: Chest Portable Chest Portable Hx of Present Illness: pt has been vomiting for the past few months unable to keep food down a few days ago she started having blood streaks in her vomitus this am LRQ LLQ burning with dark blood in emesis; Reason: Shortness of Breath; Clinical Question(s): CHF COMPARISON: 08/26/2021, 11/16/2020 FINDINGS: Patient is rotated. LINES AND TUBES: None. LUNGS AND PLEURA: Clear lungs. Normal pulmonary vascularity. No pleural effusion. No pneumothorax. HEART, MEDIASTINUM AND BILL: Heart is normal in size. Slight relative widening of the upper mediastinum compared to previous comparisons, which may be related to rotation. BONES AND SOFT TISSUES: No acute abnormality. IMPRESSION: No focal consolidation or evidence of pneumomediastinum. Slight relative widening of the upper mediastinum compared to previous comparisons, which may be related to patient rotation. CT could be considered for further evaluation if there is concern for acute mediastinal/aortic pathology. WSN: [id number] Ordering Physician: Jessica Gibbons Dictated By: Raffi Ty MD Dictated Date/Time: 12/15/21 8:54 am Reviewed By: Raffi Ty MD Signed By: Raffi Ty MD Signed Date/Time: 12/15/21 8:54 am Transcribed By: ALEXIA Transcribed Date/Time: 12/15/21 8:45 am Vital Signs Most recent to oldest [Reference Range]: 1 2 3 Height 163 cm (12/17/21 7:36 AM) 163 cm (12/17/21 2:37 AM) 163 cm (12/16/21 10:56 PM) Weight 66.8 kg (12/15/21 7:36 PM) 70.1 kg (12/15/21 7:26 PM) Oxygen Saturation [94-100 %] 100 % (12/17/21 7:36 AM) 100 % (12/17/21 2:37 AM) 100 % (12/16/21 10:56 PM) Pulse Rate [55-90 bpm] 78 bpm (12/17/21 7:36 AM) 90 bpm (12/17/21 2:37 AM) 82 bpm (12/16/21 10:56 PM) Body Mass Index [18.5-24.99] 25.14 *H* (12/15/21 7:36 PM) Blood Pressure [90-138/55-84 mm Hg] 138/87mm Hg (12/17/21 7:36 AM) 133/85mm Hg (12/17/21 2:37 AM) 124/77mm Hg (12/16/21 10:56 PM) Respiratory Rate [16-30 br/min] 17 br/min (12/17/21 7:36 AM) 18 br/min (12/17/21 2:37 AM) 18 br/min (12/17/21 1:20 AM) Temperature [96.8-100.4 DegF] 98.0 DegF (12/17/21 7:36 AM) 97.6 DegF (12/17/21 2:37 AM) 98.5 DegF (12/16/21 10:56 PM) Mode of Delivery (Oxygen) Room air (12/17/21 7:36 AM) Room air (12/17/21 2:37 AM) Room air (12/16/21 10:56 PM) Blood pressure sites Arm, left (12/17/21 7:36 AM) Arm, right (12/17/21 2:37 AM) Arm, right (12/16/21 10:56 PM) Temperature Route Oral (12/17/21 7:36 AM) Oral (12/17/21 2:37 AM) Oral (12/16/21 10:56 PM) Dry Weight 66.8 kg (12/15/21 7:36 PM) Weight Obtained Via Bed scale (12/15/21 7:26 PM) Social History Social History Type Response Smoking Status Current some day smo ker; Type: Cigarettes entered on: 04/14/17 Sex
--- OUTSIDE RECORDS SUMMARY | 2023-07-23 12:22 | XMS_ITS | Continuity of Care Document ---
Author Name Unknown Organization [facility] ter Address [address] [place] [id number]- Care Team Providers Care Qualitative Field Coordinator Name Role Phone Cece Lund Primary Care Physician Encounter [facility] [place] Date(s): 12/01/21 - 12/01/[address] [address]- Encounter Diagnosis Gastroparesis(Final) - 12/01/21 Discharge Disposition: A-D/C Home Attending Physician: Hansel Dao MD Admitting Physician: Hansel Dao MD Referring Physician: Not on Staff, Referring MD Allergies, Adverse Reactions, Alerts Substance Reaction Severity Status HumaLOG Hives Active Victoza Vomiting Active Medications albuterol CFC free 90 mcg/inh inhalation aerosol 2, puffs, Inhalation, 4 times a day, PRN, # 1 each, Refills 3, Tot. Refills 3, Maintenance, 11/19/20 9:39:00 EDT, Aerosol, Route to Pharmacy Electronically, [id number], [facility], 162, cm, 11/19/20 8:17:00 EDT,... Start Date: 11/19/20 Stop Date: 03/19/21 Status: Ordered Diflucan 150 mg oral tablet 1 tablet = 150 mg, By Mouth, Once, Take on WednesdayAugust 25, # 1 tablet, 0 Refills, Soft Stop, 08/22/21 23:40:00 EST, Tablet, [facility] #[id number], Partial fill upon patient request if the prescription is for a schedule II opioid drug., 163,... Start Date: 08/22/21 Status: Ordered Flonase 50 mcg/inh nasal spray 1 sprays, Nares, Both, 2 times a day, # 16 Gm, 0 Refills, Maintenance, 10/11/18 9:43:36 EDT, [place] Start Date: 10/11/18 Status: Ordered Insulin Lispro [...] mL, 1 Refills, Maintenance, 09/29/21 12:07:00 EST, [facility] #[id number], Partial fill upon patient request if the prescription is for a schedule II opioid drug., 1 sprays Nares, Both Daily at bedtim... Start Date: 09/29/21 Status: Ordered Lantus Solostar Pen 100 units/mL subcutaneous solution = 25 units, Subcutaneous Injection, Daily at bedtime, # 10 mL, 0 Refills, Maintenance, 02/20/20 11:38:00 EDT, Solution, [facility] #[id number], 162, cm, 02/20/20 8:43:00 EDT, Height, 71.85, kg, 02/19/20 2:51:00 EDT, Dry Weight Start Date: 02/20/20 Status: Ordered Milk of Magnesia 8% oral suspension 30 mL = 2.4 Gm, By Mouth, Daily at bedtime, PRN for constipation, # 300 mL, 0 Refills, Maintenance,11/19/20 9:40:00 EDT, Suspension, [facility], Partial fill upon patient request if the prescription is for a schedule II opioid drug., 16... Start Date: 11/19/20 Status: Ordered ondansetron 4 mg oral tablet 1 tablet = 4 mg, By Mouth, Every 8 hours, PRN as needed for nausea/vomiting, # 10 tablet, 0 Refills, Maintenance, 04/20/20 16:58:00 EDT, Tablet, [facility] #[id number], 162, cm, 03/07/20 15:35:00 EDT, Height, 71.85, kg, 02/19/20 2:51:00 EDT, Dry... Start Date: 04/20/20 Status: Ordered prochlorperazine 25 mg rectal suppository 1 supp = 25 mg, Rectally, 2 times a day, PRN for nausea/vomiting, # 12 supp, 1 Refills, Maintenance, 12/01/21 11:55:00 EDT, Suppository, [facility] #[id number], Partial fill upon patient requestif the prescription is for a schedule II opioid pipe... Start Date: 12/01/21 Status: Ordered Singulair By Mouth, Daily, 0 [...] 3 Oxygen Saturation [94-100 %] 100 % (12/01/21 12:19 PM) 100 % (12/01/21 11:07 AM) 100 % (12/01/21 7:38 AM) Pulse Rate [55-90 bpm] 88 bpm (12/01/21 12:19 PM) 74 bpm (12/01/21 11:07 AM) 80 bpm (12/01/21 7:38 AM) Blood Pressure [90-138/55-84 mm Hg] 118/56mm Hg (12/01/21 12:19 PM) 124/68mm Hg (12/01/21 11:07 AM) 146/66mm Hg *H* (12/01/21 7:38 AM) Respiratory Rate [16-30 br/min] 18 br/min (12/01/21 12:19 PM) 16 br/min (12/01/21 11:07 AM) 20 br/min (12/01/21 7:38 AM) Temperature [96.8-100.4 DegF] 97.5 DegF (12/01/21 5:47 AM) Mode of Delivery (Oxygen) Room air (12/01/21 12:19 PM) Room air (12/01/21 11:07 AM) Room air (12/01/21 7:38 AM) Blood pressure sites Arm, right (12/01/21 12:19 PM) Arm, right (12/01/21 11:07 AM) Arm, right (12/01/21 7:38 AM) Temperature Route Oral (12/01/21 5:47 AM) Social History Social History Type Response Smoking Status Current some day smo ker; Type: Cigarettes entered on: 04/14/17 Sex
--- OUTSIDE RECORDS SUMMARY | 2023-07-23 12:22 | XMS_ITS | Continuity of Care Document ---
Author Name Unknown Organization [facility] ter Address [address] [place] [phone]- Care Team Providers Care Call Worker Name Role Phone Cece Lund Primary Care Physician [place] [facility] [place] - 11/19/[address] [address]- Encounter Diagnosis COVID-19(Final) - 11/16/20 Vomiting(Final) - 11/16/20 Discharge Disposition: A-D/C Home Attending Physician: Mc Avila MD Admitting Physician: Sneha Cash MD Referring Physician: Not on Staff, Referring MD Allergies, Adverse Reactions, Alerts Substance Reaction Severity Status HumaLOG Hives Active Victoza Vomiting Active Medications albuterol CFC free 90 mcg/inh inhalation aerosol 2, puffs, Inhalation, 4 times a day, PRN, # 1 each, Refills 3, Tot. Refills 3, Maintenance, 11/19/20 9:39:00 EDT, Aerosol, Route to Pharmacy Electronically, [id number], [facility], 162, cm, 11/19/20 8:17:00 EDT,... Start Date: 11/19/20 Stop Date: 03/19/21 Status: Ordered ClearLax oral powder for reconstitution = 17 Gm, By Mouth, Daily, # 527 Gm, 1 Refills, Maintenance, 11/19/20 9:34:00 EDT, [facility], Partial fill upon patient request if the prescription is for a schedule II opioid drug., 17Gm By Mouth Daily, 162, cm, 11/19/20 8:17:00 EDT, H... Start Date: 11/19/20 Status: Ordered Flonase 50 mcg/inh nasal spray 1 sprays, Nares, Both, 2 times a day, # 16 Gm, 0 Refills, Maintenance, 10/11/18 9:43:36 EDT, [place] Start Date: 10/11/18 Status: Ordered Insulin Lispro [...] 0 Refills, Maintenance, 02/20/20 11:38:00 EDT, Solution, [facility] #[id number], 162, cm, 02/20/20 8:43:00 EDT, Height, 71.85, kg, 02/19/20 2:51:00 EDT, Dry Weight Start Date: 02/20/20 Status: Ordered metroNIDAZOLE 0.75% topical gel 1 application, Topically, Daily, # 45 Gm, 0 Refills, Maintenance, 04/20/20 16:57:00 EDT, Gel, [facility] #[id number], 1 application Topically Daily,x5 days, 162, cm, 03/07/20 15:35:00 EDT, Height, 71.85, kg, 02/19/20 2:51:00 EDT, Dry Weight Start Date: 04/20/20 Stop Date: 04/25/20 Status: Ordered Milk of Magnesia 8% oral suspension 30 mL = 2.4 Gm, By Mouth, Daily at bedtime, PRN for constipation, # 300 mL, 0 Refills, Maintenance,11/19/20 9:40:00 EDT, Suspension, [facility], Partial fill upon patient request if the prescription is for a schedule II opioid drug., 16... Start Date: 11/19/20 Status: Ordered ondansetron 4 mg oral tablet 1 tablet = 4 mg, By Mouth, Every 8 hours, PRN as needed for nausea/vomiting, # 10 tablet, 0 Refills, Maintenance, 04/20/20 16:58:00 EDT, Tablet, [facility] #[id number], 162, cm, 03/07/20 15:35:00 EDT, Height, 71.85, kg, 02/19/20 2:51:00 EDT, Dry... Start Date: 04/20/20 Status: Ordered Senna 8.6 mg oral tablet 17.2 mg, 2, tablet, By Mouth, Daily, PRN, as needed for constipation for 14 days, # 28 tablet, Refills 1, Tot. Refills 1, Acute, Other, 12/17/20 9:34:00 EDT, 11/19/20 9:34:00 EDT, Route to Pharmacy Electronically, [facility] Tablet, Part... Start Date: 11/19/20 Stop Date: 12/17/20 Status: Ordered Singulair By Mouth, Daily, 0 Refills, Maintenance, 04/14/17 10:42:53 Start Date: 04/14/17 Status: Ordered Problem List Condition Effective Dates Status Health Status Inform ant Asthma(Confirmed) Active Chronic vomiting(Confirmed) Active Dysphagia(Confirmed) Active Diabetes mellitus, type II, insulin dependent(Confirmed) Active Seasonal allergies(Confirmed) Active Results Radiology Reports * Exam Date Time Procedure Performing Provider Status 11/16/20 4:09 PM Abdomen AP Landrau , [place]; Auth (Ve rified) Notes: (Abdomen AP) Reason For Exam: Constipation RESULT: XR Abdomen AP XR Abdomen AP INDICATION/CLINICAL QUESTION: Reason: Constipation; Clinical Question(s): Obstruction. Obstruction COMPARISON: None FINDINGS: Normal bowel gas pattern. No evidence of obstruction. Moderate volume stool within the colon. No evidence of pneumoperitoneum. No organomegaly, masses or calcifications. No acute bone findings. IMPRESSION: 1. Nonobstructive bowel gas pattern. 2. Moderate volume stool within the colon. WSN: [id number] Ordering Physician: Vidal Reyes Dictated By: Los Mckinney MD Dictated Date/Time: 11/16/20 6:04 pm Reviewed By: Los Mckinney MD Signed By: Los Mckinney MD Signed Date/Time: 11/16/20 6:04 pm Transcribed By: ALEXIA Transcribed Date/Time: 11/16/20 6:02 pm * Exam Date Time Procedure Performing Provider Status 11/16/20 10:12 AM Chest Portable Olena Wagner (Verified) Notes: (Chest Portable) Reason For Exam: Cough RESULT: Chest Portable Chest Portable INDICATION/CLINICAL QUESTION: Cough. Vomiting. TECHNIQUE: AP chest 0051 hours 11/16/2020. COMPARISON: None.. FINDINGS: LINES AND TUBES: Absent. LUNGS AND PLEURA: RIGHT CHEST: The lung is clear and there is no effusion. LEFT CHEST: The lung is clear and there is no effusion. HEART AND MEDIASTINAL CONTOURS: Normal. BONES AND SOFT TISSUES: No acute abnormality.. IMPRESSION: 1. No active disease in chest. WSN: [id number] Ordering Physician: Yohana Villarreal Dictated By: Giovany Cannon MD Dictated Date/Time: 11/16/20 10:13 a Reviewed By: Giovany Cannon MD Signed By: Giovany Cannon MD Signed Date/Time: 11/16/20 10:13 am Transcribed By: ALEXIA Transcribed Date/Time: 11/16/20 10:12 am Vital Signs Most recent to oldest [Reference Range]: 1 2 3 Height 162 cm (11/19/20 11:45 AM) 162 cm (11/19/20 8:17 AM) 162 cm (11/17/20 11:07 AM) Weight 59.8 kg (11/16/20 5:01 PM) Oxygen Saturation [94-100 %] 100 % (11/19/20 11:45 AM) 100 % (11/19/20 8:17 AM) 100 % (11/19/20 4:00 AM) Pulse Rate [55-90 bpm] 66 bpm (11/19/20 11:45 AM) 86 bpm (11/19/20 8:17 AM) 80 bpm (11/19/20 4:00 AM) Body Mass Index [18.5-24.99] 22.79 (11/16/20 5:01 PM) Blood Pressure [90-138/55-84 mm Hg] 131/74mm Hg (11/19/20 11:45 AM) 117/89mm Hg (11/19/20 8:17 AM) 132/85mm Hg (11/19/20 4:00 AM) Respiratory Rate [16-30 br/min] 18 br/min (11/19/20 11:45 AM) 18 br/min (11/19/20 8:17 AM) 18 br/min (11/19/20 4:00 AM) Temperature [96.8-100.4 DegF] 98.1 DegF (11/19/20 11:45 AM) 97.9 DegF (11/19/20 8:17 AM) 98.5 DegF (11/19/20 4:00 AM) Mode of Delivery (Oxygen) Room air (11/19/20 11:45 AM) Room air (11/19/20 8:17 AM) Room air (11/19/20 4:00 AM) Blood pressure sites Arm, right (11/19/20 11:45 AM) Arm, right (11/19/20 8:17 AM) Arm, right (11/19/20 4:00 AM) Temperature Route Oral (11/19/20 11:45 AM) Oral (11/19/20 8:17 AM) Oral (11/19/20 4:00 AM) Dry Weight 59.8 kg (11/16/20 5:01 PM) Social History Social History Type Response Smoking Status Current some day smo ker; Type: Cigarettes entered on: 04/14/17 Sex
--- OUTSIDE RECORDS SUMMARY | 2023-07-23 12:22 | XMS_ITS | Continuity of Care Document ---
Author Name Unknown Organization [facility] ter Address [address] [place] [phone]- Care Team Providers Care Tree Doctor Name Role Phone Cece Lund Primary Care Physician Encounter [facility] [place] Date(s): 06/09/20 - 06/10/[address] [address]- Encounter Diagnosis Hyperglycemia(Final) - 06/09/20 Diabetic gastroparesis(Final) - 06/09/20 Diabetes(Final) - 06/09/20 Discharge Disposition: A-D/C Home Attending Physician: Otis Lee DO Admitting Physician: Otis Lee DO Referring Physician: Not on Staff, Referring [...] Gm, 0 Refills, Maintenance, 10/11/18 9:43:36 EDT, [place] Start Date: 10/11/18 Status: Ordered Lantus Solostar Pen 100 units/mL subcutaneous solution = 60 units, Subcutaneous Injection, Daily at bedtime, # 10 mL, 0 Refills, Maintenance, 02/20/20 11:38:00 EDT, Solution, [facility] #[id number], 162, cm, 02/20/20 8:43:00 EDT, Height, 71.85, kg, 02/19/20 2:51:00 EDT, Dry Weight Start Date: 02/20/20 Status: Ordered metroNIDAZOLE 0.75% topical gel 1 application, Topically, Daily, # 45 Gm, 0 Refills, Maintenance, 04/20/20 16:57:00 EDT, Gel, [facility] #[id number], 1 application Topically Daily,x5 days, 162, cm, [...] 0 Refills, Maintenance, 04/20/20 16:58:00 EDT, Tablet, [facility] #[id number], 162, cm, 03/07/20 15:35:00 EDT, Height, 71.85, kg, 02/19/20 2:51:00 EDT, Dry... Start Date: 04/20/20 Status: Ordered Reglan 10 mg oral tablet 1 tablet = 10 mg, By Mouth, 2 times a day, for 30 days, Take before meals, # 60 tablet, 0 Refills, Acute 07/09/20 23:18:00 EST, 06/09/20 23:18:00 EST, Tablet, [facility] #[id number], 162, cm, 03/07/20 15:35:00 EDT, Height, 71.85, kg, 02/19/20 2:5... Start Date: 06/09/20 Stop Date: 07/09/20 Status: Ordered Singulair By Mouth, Daily, 0 [...] 3 Oxygen Saturation [94-100 %] 100 % (06/09/20 11:15 PM) 100 % (06/09/20 6:18 PM) 100 % (06/09/20 6:05 PM) Pulse Rate [55-90 bpm] 95 bpm *H* (06/09/20 11:15 PM) 106 bpm *H* (06/09/20 6:18 PM) 135 bpm *H* (06/09/20 6:05 PM) Blood Pressure [90-138/55-84 mm Hg] 130/80mm Hg (06/09/20 11:15 PM) 120/91mm Hg (06/09/20 6:18 PM) Respiratory Rate [16-30 br/min] 20 br/min (06/09/20 11:15 PM) 18 br/min (06/09/20 6:18 PM) Temperature [96.8-100.4 DegF] 98 DegF (06/09/20 11:15 PM) 98.2 DegF (06/09/20 6:18 PM) Mode of Delivery (Oxygen) Room air (06/09/20 11:15 PM) Room air (06/09/20 6:18 PM) Room air (06/09/20 6:05 PM) Blood pressure sites Arm, right (06/09/20 11:15 PM) Arm, right (06/09/20 6:18 PM) Temperature Route Oral (06/09/20 11:15 PM) Oral (06/09/20 6:18 PM) Social History Social History Type Response Smoking Status Current some day smo ker; Type: Cigarettes entered on: 04/14/17 Sex
--- OUTSIDE RECORDS SUMMARY | 2023-07-23 12:22 | XMS_ITS | Continuity of Care Document ---
Author Name Unknown Organization [facility] ter Address [address] [place] [id number]- Care Team Providers Care Asbestos Cloth Inspector Name Role Phone Cece Lund Primary Care Physician [place] [facility] [place] 02/18/20 - 02/18/[address] [address]- [facility] Encounter Diagnosis DKA (diabetic ketoacidosis)(Final) - 02/18/20 Discharge Disposition: A-D/C AMA Attending Physician: Walter Moore MD Admitting Physician: Walter Moore MD Referring Physician: Not on Staff, Referring [...] Gm, 0 Refills, Maintenance, 10/11/18 9:43:36 EDT, [place] Start Date: 10/11/18 Status: Ordered Lantus Solostar Pen 100 units/mL subcutaneous solution = 60 units, Subcutaneous Injection, Daily at bedtime, # 10 mL, 0 Refills, Maintenance, 08/24/15 9:55:30, Solution, 60 units Subcutaneous Injection Daily at bedtime Start Date: 08/24/15 Status: Ordered Singulair By Mouth, Daily, 0 Refills, Maintenance, 04/14/17 10:42:53 Start Date: 04/14/17 Status: Ordered Problem List Condition Effective Dates Status Health Status Inform ant Chronic vomiting(Confirmed) Active Dysphagia(Confirmed) Active Diabetes mellitus, type II, insulin dependent(Confirmed) Active DKA, type 1, not at goal(Confirmed) Active DKA, type 1, not at goal(Confirmed) Active Results Radiology Reports * Exam Date Time Procedure Performing Provider Status 02/18/20 9:41 AM Chest 2 Views Frontal and Lat Roberto , Amanda; Auth (Verified) Notes: (Chest 2 Views Frontal and Lat) Reason For Exam: Source of infection;Other: RESULT: Chest 2 Views Frontal and Lat Chest 2 Views Frontal and Lat Refer to EMR; Reason: Other:; Source of infection; Clinical Question(s): Pneumonia COMPARISON: 03/21/2017 FINDINGS: No acute cardiopulmonary process. IMPRESSION: No acute abnormality. WSN: [id number] Ordering Physician: Narinder Lund Dictated By: Rios Govea MD Dictated Date/Time: 02/18/20 10:00 a Reviewed By: Rios Govea MD Signed By: Rios Govea MD Signed Date/Time: 02/18/20 10:00 am Transcribed By: ALEXIA Transcribed Date/Time: 02/18/20 10:00 am Vital Signs Most recent to oldest [Reference Range]: 1 2 Oxygen Saturation [94-100 %] 99 % (02/18/20 7:33 AM) 100 % (02/18/20 7:20 AM) Pulse Rate [55-90 bpm] 96 bpm *H* (02/18/20 7:33 AM) 108 bpm *H* (02/18/20 7:20 AM) Blood Pressure [90-138/55-84 mm Hg] 131/ 91mm Hg (02/18/20 7:33 AM) Respiratory Rate [16-30 br/min] 20 br/mi n (02/18/20 7:33 AM) Temperature [96.8-100.4 DegF] 98.8 DegF (02/18/20 7:33 AM) Mode of Delivery (Oxygen) Room air (02/18/20 7:33 AM) Room air (02/18/20 7:20 AM) Blood pressure sites Arm, right (02/18/20 7:33 AM) Temperature Route Oral (02/18/20 7:33 AM) Social History Social History Type Response Smoking Status Current some day smo ker; Type: Cigarettes entered on: 04/14/17 Sex
--- OUTSIDE RECORDS SUMMARY | 2023-07-23 12:22 | XMS_ITS | Continuity of Care Document ---
Author Name Unknown Organization [facility] ter Address [address] [place] [id number]- Care Team Providers Care Supervisor Typesetting Name Role Phone Cece Lund Primary Care Physician Encounter [facility] Date(s): 09/07/22 - 09/08/[address] [address]- Encounter Diagnosis Vomiting(Final) - 09/08/22 Gastritis(Final) - 09/08/22 Discharge Disposition: A-D/C Home Attending Physician: Torito Pereira MD Admitting Physician: Torito Pereira MD Referring Physician: Not on Staff, Referring MD Allergies, Adverse Reactions, Alerts Substance Reaction Severity Status HumaLOG Hives Active Victoza Vomiting Active Medications albuterol CFC free 90 mcg/inh inhalation aerosol 2, puffs, Inhalation, 4 times a day, PRN, # 1 each, Refills 3, Tot. Refills 3, Maintenance, 11/19/20 9:39:00 EDT, Aerosol, Route to Pharmacy Electronically, [id number], [facility], 162, cm, 11/19/20 8:17:00 EDT,... Start Date: 11/19/20 Stop Date: 03/19/21 Status: Ordered ipratropium nasal 21 mcg/inh spray 1 sprays, Nares, Both, Daily at bedtime, # 30 mL, 1 Refills, Maintenance, 09/29/21 12:07:00 EST, [facility] #[id number], Partial fill upon patient request if the [...] Maintenance,11/19/20 9:40:00 EDT, Suspension, [facility], Partial fill upon patient request if the prescription is for a schedule II opioid drug., 16... Start Date: 11/19/20 Status: Ordered MorPHINE Inj 4 mg, Injection, IV Push Slowly, Every 5 minutes for 3 doses/times, PRN for Pain , Moderate, and SBP greater than 100, Routine, 09/07/22 22:36:00 EST, Stop date Limited # of times Start Date: 09/07/22 Stop Date: 09/08/22 Status: Discontinued ondansetron 4 mg oral tablet 1 tablet = 4 mg, By Mouth, Every 8 hours, PRN as needed for nausea/vomiting, # 10 tablet, 0 Refills, Maintenance, 04/20/20 16:58:00 EDT, Tablet, [facility] #[id number], 162, cm, 03/07/20 15:35:00 EDT, Height, 71.85, kg, 02/19/20 2:51:00 EDT, Dry... Start Date: 04/20/20 Status: Ordered ondansetron 4 mg oral tablet 1 tablet = 4 mg, By Mouth, Every 8 hours, PRN Nausea & Vomiting, for 5 days, # 12 tablet, 0 Refills, Acute 09/13/22 6:25:00 EST, 09/08/22 6:25:00 EST, Tablet, [facility] #[id number], Partialfill upon patient request if the prescription is for a... Start Date: 09/08/22 Stop Date: 09/13/22 Status: Ordered prochlorperazine 25 mg rectal suppository [...] apnea) Confirmed Active Seasonal allergies Confirmed Active Results Radiology Reports * Exam Date Time Procedure Performing Provider Status 09/08/22 1:[address] Abd/Pelvis W/ IV Contrast Only Adi Strange; Auth (Verified) Notes: (CT Abd/Pelvis W/ IV Contrast Only) Reason For Exam: diffuse abdominal pain, vomiting;Other: RESULT: CT Abd/Pelvis W/ IV Contrast Only CT Abd/Pelvis W/ IV Contrast Only REASON: diffuse abdominal pain, vomiting; Clinical Question(s): Bowel Perforation Hx of Present Illness: PT TO ED from home c o emesis. Pt report burning all over stomach. Hx H-pylori. Pt vomiting brown emesis with flecks of blood. Actively vomiting upon arrival TECHNIQUE: Spiral CT through the abdomen and pelvis with IV contrast formatted in 3 planes. 100 cc of Omnipaque 300 was administered intravenously. This study was performed without oral contrast. Weight-based protocol using automatic tube modulation was used to optimize exposure parameters. CTDIvol Body: 15.60 mGy, DLP Body: 775 mGy*cm. COMPARISON: CT abdomen pelvis 04/18/2021. FINDINGS: Straw Hat Machine Operator View Findings, Lines and Tubes: None. Visualized Chest: Lung bases are clear. No pleural effusion. The heart is normal in size. No pericardial effusion. Diaphragm: Normal. Liver: Diffuse low-attenuation throughout the liver parenchyma consistent with hepatic steatosis. No evidence of mass. Low-attenuation adjacent to the falciform ligament may be related to focal infiltration or variant perfusion. Gallbladder: No CT evidence of gallbladder pathology. Bile ducts: No biliary ductal dilation. Spleen: Normal. Pancreas: Normal. Adrenal glands: Normal. Kidneys and ureters: No hydronephrosis, stones, or suspicious masses. Bladder: Normal. Reproductive organs: Unremarkable CT appearance of uterus. 3.1 cm right ovarian cyst. Unchanged appearance of a tubular exophytic area arising from the fundus of the uterus stable dating back to 03/04/2016. Stomach, small bowel, and large bowel: There is fluid in the distal esophagus. Unremarkable stomach. Small bowel loops are nondilated. Colonic loops are unremarkable. Appendix: No evidence of appendicitis. Peritoneum and retroperitoneum: No ascites or pneumoperitoneum. No omental or mesenteric lesions. Lymph nodes: No enlarged lymph nodes. Blood vessels: Normal. No aneurysm. No evidence of venous thrombosis. Abdominal and pelvic wall: Unremarkable. Bones: No acute abnormality. IMPRESSION: No acute inflammatory process in the abdomen and pelvis. No bowel obstruction. Trace fluid in the distal esophagus, correlate with symptoms of reflux. Hepatic steatosis. I have personally reviewed the images and I agree with this report. WSN: [id number] Ordering Physician: Nasima Horn Dictated By: Fito Nino DO Dictated Date/Time: 09/08/22 7:42 am Reviewed By: Shaun Gramajo MD Signed By: Shaun Gramajo MD Signed Date/Time: 09/08/22 7:47 am Transcribed By: ALEXIA Transcribed Date/Time: 09/08/22 2:05 am * Exam Date Time Procedure Performing Provider Status 09/07/22 10:22 PM Chest 2 Views Frontal and Lat Viviane Mcnamara; Song (Verified) Notes: (Chest 2 Views Frontal and Lat) Reason For Exam: Abdominal Pain RESULT: Chest 2 Views Frontal and Lat Chest 2 Views Frontal and Lat Reason: Abdominal Pain; Clinical Question(s): Other:; Abd Free Air COMPARISON: 12/14/2021 FINDINGS: LINES AND TUBES: None. LUNGS AND PLEURA: Clear lungs. Normal pulmonary vascularity. No pleural effusion. No pneumothorax. HEART, MEDIASTINUM AND BILL: Heart is normal in size. Normal mediastinal and hilar contour. BONES AND SOFT TISSUES: No acute abnormality. No pneumoperitoneum. IMPRESSION: No evidence of acute cardiopulmonary pathology. No pneumoperitoneum. WSN: [id number] Ordering Physician: Nasima Horn Dictated By: Raffi Fox MD Dictated Date/Time: 09/07/22 10:24 p Reviewed By: Raffi Fox MD Signed By: Raffi Fox MD Signed Date/Time: 09/07/22 10:24 pm Transcribed By: ALEXIA Transcribed Date/Time: 09/07/22 10:24 pm Vital Signs Most recent to oldest [Reference Range]: 1 2 3 Oxygen Saturation [94-100 %] 99 % (09/08/22 5:17 AM) 99 % (09/08/22 12:50 AM) 100 % (09/07/22 11:07 PM) Pulse Rate [55-90 bpm] 69 bpm (09/08/22 5:17 AM) 67 bpm (09/08/22 12:50 AM) 67 bpm (09/07/22 11:07 PM) Blood Pressure [90-138/55-84 mm Hg] 115/58mm Hg (09/08/22 5:17 AM) 122/68mm Hg (09/08/22 12:50 AM) 158/87mm Hg *H* (09/07/22 10:00 PM) Respiratory Rate [16-30 br/min] 19 br/min (09/08/22 5:17 AM) 18 br/min (09/08/22 12:50 AM) 18 br/min (09/07/22 11:25 PM) Temperature [96.8-100.4 DegF] 98.1 DegF (09/08/22 5:17 AM) 99.4 DegF (09/08/22 12:50 AM) 98.4 DegF (09/07/22 11:07 PM) Mode of Delivery (Oxygen) Room air (09/08/22 5:17 AM) Room air (09/08/22 12:50 AM) Room air (09/07/22 10:00 PM) Blood pressure sites Arm, right (09/08/22 5:17 AM) Arm, left (09/08/22 12:50 AM) Temperature Route Oral (09/08/22 12:50 AM) Oral (09/07/22 11:07 PM) Oral (09/07/22 10:00 PM) Social History Social History Type Response Smoking Status Current some day smo ker; Type: Cigarettes entered on: 04/14/17 Sex Note * Day Gonzalez DO: PERFORM Event Display: Patient Education Leaflets Authored Date: [id number] Gastritis ?? Gastritis - Video Gastritis is an inflammation of the lining of the stomach. It can have a number of causes, but mostare lifestyle excesses???smoking, too much alcohol, too much caffeine, and overeating. This video explores the many causes of gastritis, recommended treatments, and preventive steps. To view the video go to this web address: [email or web address] Or, scan this QR code with your smart phone Last Reviewed Date: 2019 ?? 1035-1015 [employer]. All rights reserved. This information is not intended as a substitute for professional medical care. Always follow your healthcare professional's instructions. ?? * Day Gonzalez DO: PERFORM Event Display: Patient Education Leaflets Authored Date: [id number] Gastritis (Adult) ?? [id number] Gastritis (Adult) Gastritis is??inflammation and??irritation of the stomach lining. You can have it for a short time (acute) or it can be long lasting (chronic). Infection with bacteria called??H. pylori most often causes gastritis.??More than 1 out of 3 people in the [place] have these bacteria in their bodies. In many cases,??H. pylori??causes no problems or symptoms. But in some people, the infection irritates thestomach lining and causes gastritis. H. pylori may be diagnosed through blood, stool, or breath tests, or by a biopsy during an endoscopy. Other causes of stomach irritation include drinking alcohol,smoking or chewing tobacco, or taking pain-relieving medicines called nonsteroidal anti-inflammatory drugs (NSAIDs), such as aspirin or ibuprofen. Some illegal drugs (such as cocaine) and immune conditions can also cause gastritis. Symptoms of gastritis can include: ??? Belly pain or bloating ??? Feeling full quickly ??? Loss of appetite ??? Weight loss ??? Nauseaor vomiting ??? Vomiting blood or having black stools ??? Feeling more tired than normal An inflamed and irritated stomach lining is more likely to develop a sore called an ulcer. To help prevent this, gastritis should be evaluated and treated as soon as symptoms occur. Home care If needed, your healthcare provider may prescribe medicines. If you have??H. pylori??infection, treating it will likely ease your symptoms. Other changes can help reduce stomach irritation and help it heal. ??? Take prescription medicines as directed. If you have been prescribed medicines for??H. pylori??infection, take them as directed. Take all of the medicine until it's finished or until your provider tells you to stop taking it, even if you start to feel better. ??? Follow your healthcare provider's advice on NSAIDs. Your provider may advise you not to take NSAIDs such as ibuprofen. If you take daily aspirin for your heart or other health reasons, don't stop without talking with your provider first. ??? Don't drink alcohol. If you need help stopping your use of alcohol, ask your provider for treatment resources. ??? Stop smoking. Smoking can irritate the stomach and delay healing. As much as possible, stay away from secondhand smoke. If you smoke and have trouble stopping, ask your provider for help. ?? Follow-up care Follow up with your healthcare provider, or as advised. You may need testing to check for inflammation or an ulcer. ?? When to get medical advice Call your healthcare provider if any of the following occur: ??? Stomach pain that gets worse or moves to the lower right belly (appendix area) ??? Chest pain that suddenly appears or gets worse, or spreads to the back, neck, shoulder, or arm ??? Frequent vomiting (can???t keep down liquids) ??? Blood in the stool or vomit (red or black in color) ??? Feeling weak or dizzy ??? Shortness of breath ??? Unexplained weight loss ??? Fever of 100.4??F (38??C) or higher, or as directed by your healthcare provider ??? Symptoms that get worse, or new symptoms ?? Last Reviewed Date: 2022 ?? 1312-7288 [employer]. All rights reserved. This information is not intended as a substitute for professional medical care. Always follow your healthcare professional's instructions. ?? * [facility] , CIS S: TRANSCRIKELLEY Fox MD, Raffi Camacho: VERIFY Event Display: Result: Authored Date: [id number] Chest 2 Views Frontal and Lat Reason: Abdominal Pain; Clinical Question(s): Other:; Abd Free Air COMPARISON: 12/14/2021 FINDINGS: LINES AND TUBES: None. LUNGS AND PLEURA: Clear lungs. Normal pulmonary vascularity. No pleural effusion. No pneumothorax. HEART, MEDIASTINUM AND BILL: Heart is normal in size. Normal mediastinal and hilar contour. BONES AND SOFT TISSUES: No acute abnormality. No pneumoperitoneum. IMPRESSION: No evidence of acute cardiopulmonary pathology. No pneumoperitoneum. WSN: [id number] Ordering Physician: Nasima Horn Dictated By: Raffi Fox MD Dictated Date/Time: 09/07/22 10:24 p Reviewed By: Raffi Fox MD Signed By: Raffi Fox MD Signed Date/Time: 09/07/22 10:24 pm Transcribed By: ALEXIA Transcribed Date/Time: 09/07/22 10:[address] Abdomen and Pelvis W contrast IV * [facility] , CIS S: TRANSCRIBE Shaun Gramajo MD: VERIFY Fito Nino DO: SIGN Event Display: Result: Authored Date: [id number] CT Abd/Pelvis W/ IV Contrast Only REASON: diffuse abdominal pain, vomiting; Clinical Question(s): Bowel Perforation Hx of Present Illness: PT TO ED from home c o emesis. Pt report burning all over stomach. Hx H-pylori. Pt vomiting brown emesis with flecks of blood. Actively vomiting upon arrival TECHNIQUE: Spiral CT through the abdomen and pelvis with IV contrast formatted in 3 planes. 100 cc of Omnipaque 300 was administered intravenously. This study was performed without oral contrast. Weight-based protocol using automatic tube modulation was used to optimize exposure parameters. CTDIvol Body: 15.60 mGy, DLP Body: 775 mGy*cm. COMPARISON: CT abdomen pelvis 04/18/2021. FINDINGS: Straw Hat Machine Operator View Findings, Lines and Tubes: None. Visualized Chest: Lung bases are clear. No pleural effusion. The heart is normal in size. No pericardial effusion. Diaphragm: Normal. Liver: Diffuse low-attenuation throughout the liver parenchyma consistent with hepatic steatosis. No evidence of mass. Low-attenuation adjacent to the falciform ligament may be related to focal infiltration or variant perfusion. Gallbladder: No CT evidence of gallbladder pathology. Bile ducts: No biliary ductal dilation. Spleen: Normal. Pancreas: Normal. Adrenal glands: Normal. Kidneys and ureters: No hydronephrosis, stones, or suspicious masses. Bladder: Normal. Reproductive organs: Unremarkable CT appearance of uterus. 3.1 cm right ovarian cyst. Unchanged appearance of a tubular exophytic area arising from the fundus of the uterus stable dating back to 03/04/2016. Stomach, small bowel, and large bowel: There is fluid in the distal esophagus. Unremarkable stomach. Small bowel loops are nondilated. Colonic loops are unremarkable. Appendix: No evidence of appendicitis. Peritoneum and retroperitoneum: No ascites or pneumoperitoneum. No omental or mesenteric lesions. Lymph nodes: No enlarged lymph nodes. Blood vessels: Normal. No aneurysm. No evidence of venous thrombosis. Abdominal and pelvic wall: Unremarkable. Bones: No acute abnormality. IMPRESSION: No acute inflammatory process in the abdomen and pelvis. No bowel obstruction. Trace fluid in the distal esophagus, correlate with symptoms of reflux. Hepatic steatosis. I have personally reviewed the images and I agree with this report. WSN: [id number] Ordering Physician: Nasima Horn Dictated By: Fito Nino DO Dictated Date/Time: 09/08/22 7:42 am Reviewed By: Shaun Gramajo MD Signed By: Shaun Gramajo MD Signed Date/Time: 09/08/22 7:47 am Transcribed By: ALEXIA Transcribed Date/Time: 09/08/22 2:05 am Patient Care team information Care Team Personnel Name: Pamela Crystal RN Position: [facility] SN RN Member Role: Primary Care Nurse Name: Zadia Noriega RN Position: [facility] ED RN W/OE and Tasks Member Role: Primary Care Nurse Name: Cece Lund Position: [facility] Associate Professional Member Role: PCP Address: Address: [address] [place] [address] Name: Faiza Darby RN Position: [facility] RN Member Role: Primary Care Nurse Name: Zoë Hastings Position: [facility] Outreach Member Role: Lifetime Consulting Physician Name: Pamela Castellano RN Position: S RN Member Role: Primary Care Nurse Name: Vidya Zhu RN Position: S RN Member Role: Primary Care Nurse Name: Jeanne Ray Position: [facility] Outreach Member Role: Lifetime Consulting Physician Name: Janiya Mehta RN Position: [facility] ED RN W/OE and Tasks Member Role: Patient Care Provider Name: Day Gonzalez DO Position: [facility] Resident Member Role: ED Resident Address: Address: [address] [place] [id number]- Name: Torito Pereira MD Position: [facility] ED Medicine MD Member Role: ED Attending Physician Address: Address: [address] [place] [address]- Name: Livier Neville Position: [facility] ED TA [facility] Member Role: Distributor Operator Care Team Related Persons Name: JJ FLETCHER Address: [place] [address] Name: AARON WIN Address: [place] [address] Name: CHRALENE TANG Address: home [address] [place] [id number] Name: CORTEZ JOSUE Address: [place] [address] Name: ANGELIQUE BROWN Address: [place] [address]
--- OUTSIDE RECORDS SUMMARY | 2023-07-23 12:22 | XMS_ITS | Continuity of Care Document ---
Author Name Unknown Organization [facility] ter Address [address] [place] [id number]- Care Team Providers Care Manufacturer Representative Name Role Phone Cece Lund Primary Care Physician [id number] - 04[facility] [address]- [facility] Encounter Diagnosis Viral syndrome(Final) - 04/20/20 Bacterial vaginitis(Final) - 04/20/20 Discharge Disposition: A-D/C Home Attending Physician: Manjula Greer MD Admitting Physician: Manjula Greer MD Referring Physician: Not on Staff, Referring [...] Gm, 0 Refills, Maintenance, 10/11/18 9:43:36 EDT, [place] Start Date: 10/11/18 Status: Ordered Lantus Solostar Pen 100 units/mL subcutaneous solution = 60 units, Subcutaneous Injection, Daily at bedtime, # 10 mL, 0 Refills, Maintenance, 02/20/20 11:38:00 EDT, Solution, [facility] #[id number], 162, cm, 02/20/20 8:43:00 EDT, Height, 71.85, kg, 02/19/20 2:51:00 EDT, Dry Weight Start Date: 02/20/20 Status: Ordered metroNIDAZOLE 0.75% topical gel 1 application, Topically, Daily, # 45 Gm, 0 Refills, Maintenance, 04/20/20 16:57:00 EDT, Gel, [facility][id number], 1 application Topically Daily,x5 days, 162, cm, [...] 0 Refills, Maintenance, 04/20/20 16:58:00 EDT, Tablet, [facility] #[id number], 162, cm, 03/07/20 15:35:00 EDT, Height, 71.85, [...] 3 Oxygen Saturation [94-100 %] 100 % (04/20/20 6:08 PM) 100 % (04/20/20 4:35 PM) 99 % (04/20/20 12:51 PM) Pulse Rate [55-90 bpm] 80 bpm (04/20/20 6:08 PM) 72 bpm (04/20/20 4:35 PM) 84 bpm (04/20/20 12:51 PM) Blood Pressure [90-138/55-84 mm Hg] 127/63mm Hg (04/20/20 6:08 PM) 96/58mm Hg (04/20/20 4:35 PM) 128/74mm Hg (04/20/20 12:51 PM) Respiratory Rate [16-30 br/min] 16 br/min (04/20/20 6:08 PM) 16 br/min (04/20/20 4:35 PM) 22 br/min (04/20/20 12:51 PM) Temperature [96.8-100.4 DegF] 99.4 DegF (04/20/20 6:08 PM) 98.2 DegF (04/20/20 4:35 PM) 97.9 DegF (04/20/20 12:51 PM) Mode of Delivery (Oxygen) Room air (04/20/20 6:08 PM) Room air (04/20/20 4:35 PM) Room air (04/20/20 12:51 PM) Blood pressure sites Arm, right (04/20/20 6:08 PM) Arm, left (04/20/20 4:35 PM) Arm, left (04/20/20 12:51 PM) Temperature Route Oral (04/20/20 6:08 PM) Oral (04/20/20 4:35 PM) Oral (04/20/20 12:51 PM) Social History Social History Type Response Smoking Status Current some day smo ker; Type: Cigarettes entered on: 04/14/17 Sex
--- OUTSIDE RECORDS SUMMARY | 2023-07-23 12:22 | XMS_ITS | Continuity of Care Document ---
Author Name Unknown Organization [facility] Address [address] [place] [address]- Care Team Providers Care Hard Rock Miner Name Role Phone Cece Lund Primary Care Physician [phone] Encounter [facility] Date(s): 12/11/20 - 01/10/[address] [address] Allergies, Adverse Reactions, Alerts Substance Reaction Severity Status HumaLOG Hives Active Victoza Vomiting Active Medications albuterol CFC free 90 mcg/inh inhalation aerosol 2, puffs, Inhalation, 4 times a day, PRN, # 1 each, Refills 3, Tot. Refills 3, Maintenance, 11/19/20 9:39:00 EDT, Aerosol, Route to Pharmacy Electronically, [id number], [facility], 162, cm, 11/19/20 8:17:00 EDT,... Start Date: 11/19/20 Stop Date: 03/19/21 Status: Ordered ClearLax oral powder for reconstitution = 17 Gm, By Mouth, Daily, # 527 Gm, 1 Refills, Maintenance, 11/19/20 9:34:00 EDT, [facility], Partial fill upon patient request if the prescription is for a schedule II opioid drug., 17Gm By Mouth Daily, 162, cm, 11/19/20 8:17:00 EDT, H... Start Date: 11/19/20 Status: Ordered Flonase 50 mcg/inh nasal spray 1 sprays, Nares, Both, 2 times a day, # 16 Gm, 0 Refills, Maintenance, 10/11/18 9:43:36 EDT, [place] Start Date: 10/11/18 Status: Ordered Insulin Lispro [...] 0 Refills, Maintenance, 02/20/20 11:38:00 EDT, Solution, [facility] #[id number], 162, cm, 02/20/20 8:43:00 EDT, Height, 71.85, kg, 02/19/20 2:51:00 EDT, Dry Weight Start Date: 02/20/20 Status: Ordered metroNIDAZOLE 0.75% topical gel 1 application, Topically, Daily, # 45 Gm, 0 Refills, Maintenance, 04/20/20 16:57:00 EDT, Gel, [facility] #[id number], 1 application Topically Daily,x5 days, 162, cm, 03/07/20 15:35:00 EDT, Height, 71.85, kg, 02/19/20 2:51:00 EDT, Dry Weight Start Date: 04/20/20 Stop Date: 04/25/20 Status: Ordered Milk of Magnesia 8% oral suspension 30 mL = 2.4 Gm, By Mouth, Daily at bedtime, PRN for constipation, # 300 mL, 0 Refills, Maintenance,11/19/20 9:40:00 EDT, Suspension, [facility], Partial fill upon patient request if the prescription is for a schedule II opioid drug., 16... Start Date: 11/19/20 Status: Ordered ondansetron 4 mg oral tablet 1 tablet = 4 mg, By Mouth, Every 8 hours, PRN as needed for nausea/vomiting, # 10 tablet, 0 Refills, Maintenance, 04/20/20 16:58:00 EDT, Tablet, [facility] #[id number], 162, cm, 03/07/20 15:35:00 EDT, Height, 71.85, [...]
[2023-07-23 12:28] LABS: Basophils Percent Auto 0.3 % (0-2); Eosinophils Percent Auto 0.1 % (0-4); Hematocrit 38.3 % (37.0-47.0); Hemoglobin 12.8 g/dl (12.0-16.0); Imm Gran Abs Auto 0.07 X10*3/uL (0.00-0.03); Imm Gran Pct Auto 0.5 % (0.0-0.4); Lymphocytes Absolute Auto 1.6 X10*3/uL (1.2-4.9); Mean Corpuscular HGB Conc 33.4 g/dl (31.0-35.0); Mean Corpuscular Hemoglobin 26.6 pg (27.0-33.0); Mean Corpuscular Volume 79.5 fL (80.0-98.0); Mean Platelet Volume 9.8 fL (9.4-12.3); Monocytes Absolute Auto 0.8 X10*3/uL (0.1-1.2); Monocytes Percent Auto 5.9 % (2-11); Neutrophils Absolute Auto 10.7 x10*3/uL (2.0-8.3); Neutrophils Percent Auto 81.2 % (45-73); Platelet Count 319 X10*3/uL (160-400); Red Blood Count 4.82 X10*6/uL (4.20-5.50); Red Cell Distribution Width 14.2 % (11.0-16.0); White Blood Count 13.2 X10*3/uL (4.8-10.8)
--- NOTE | 2023-07-23 12:32 | PC.NURSE ---
Pt is a&ox4 coming in for abd pain x2 days. Abd soft and tender. Reports n/v, chills, and sweats. Denies having fevers. Pt reports having a hx of H- Pylori. Pt moving all extremities independently . Respirations even and unlabored.
[2023-07-23 12:33] LABS: Prothrombin Time 12.4 SEC (11.1-13.3)
[2023-07-23 12:36] LABS: Partial Thromboplastin Time 27.2 SEC (26.0-36.4)
[2023-07-23 12:38] LABS: Alanine Aminotransferase 11 U/L (0-31); Albumin Level 4.8 g/dL (3.5-5.0); Alkaline Phosphatase 73 U/L (39-117); Anion Gap 17 (12-20); Aspartate Amino Transferase 16 U/L (5-31); Blood Urea Nitrogen 11 mg/dL (9-16); Calcium 9.3 mg/dL (8.4-10.2); Carbon Dioxide 26 mmol/L (22-29); Chloride 97 mmol/L (96-108); Creatinine Clr Calc Pharmacy 60.2; Estimated Glomerular Filt Rate 52; Glucose Random 170 mg/dL (60-115); Sodium 137 mmol/L (135-145)
--- NOTE | 2023-07-23 12:40 | ED_ITS ---
HPI - Abdominal Pain General Chief Complaint: Abdominal Pain Stated Complaint: abd pain, vomiting Time Seen by Provider: 07/23/23 11:50 History of Present Illness HPI narrative: Patient is a 48-year-old female presented today with a history of H pylori history of marijuana use on a daily basis with nausea vomiting. Complaining of excruciating nausea. Vomiting. Abdominal pain diffuse over the entire abdomen. Somewhat made improved with heating pad. History of having the same thing. Seen at [facility] few days ago. Denies any chance of being as she is currently having her menstruation. Denies any abdominal surgery done in the past. There is no fever no chills no coughing. Patient from home. Related Data Previous Rx's Medication Instructions Recorded ondansetron 4 mg disintegrating 4 mg PO TID PRN nausea and 07/23/23 tablet vomiting 5 days #10 tabs ondansetron 4 mg disintegrating 4 mg PO TID PRN nausea and 07/23/23 tablet vomiting 5 days #10 tabs Allergies Allergy/AdvReac Type Severity Reaction Status Date / Time clams Allergy Severe ANAPHYLAXIS Verified 07/23/23 14:45 insulin lispro [From HUMALOG] Allergy Unknown HIVES Verified 07/23/23 14:45 liraglutide [From VICTOZA] Allergy Unknown VOMIT Verified 07/23/23 14:45 DIARRHEA ENVIROMENTAL Allergy Intermediate HAYFEVER Uncoded 04/18/20 15:17 clam Allergy Unknown Unknown Uncoded 07/23/23 14:45 pollen Allergy Unknown Unknown Uncoded 07/23/23 14:45 salmon Allergy Unknown Unknown Uncoded 07/23/23 14:45 Review of Systems Review of Systems Positive nausea, vomiting, abdominal pain Yes all other systems are reviewed and are negative [facility] Past Medical History Attestation statement: The following information was validated with the patient. Social History Social History Smoked in Last 30 Days: No Use of substances other than those prescribed or required for medical reasons: Yes Substance Use Type: Marijuana Substance Use Frequency: Daily Any prior treatment program specific to substance use: No Advance Directives: No Advance Directives Information Provided: No Physical Exam ED Vital Signs: Vital Signs - 24 hr 07/23/23 11:45 07/23/23 14:00 Temperature 98.6 F 99.2 F Pulse Rate 114 H 76 Respiratory Rate 18 16 Blood Pressure 188/103 H 145/78 H Pulse Oximetry 99 100 Oxygen Delivery Method Room Air Room Air BMI result Body Mass Index 27.1 Appearance: Alert. Oriented X3. No acute distress. Eyes: Pupils equal, round and reactive to light. ENT: Pharynx normal. Neck: Normal inspection. Neck supple. No lymph nodes noted. No crepitus CVS: Normal heart rate and rhythm. Pulses normal. Normal S1 and S2 Respiratory: No respiratory distress. Breath sounds normal. No Wheezing. No rales Abdomen: Diffuse abdominal pain no rebound no guarding Skin: Skin warm and dry. Normal skin color. Normal skin turgor. Extremities: No lower extremity edema. Neurovascular intact to all extremities. No Lacerations. No Rash Neuro: Oriented X 3. No motor deficit. No sensory deficit. Moving all extermities. No slurred speech Medical Decision Making Medical Decision Making MDM Narrative: History of diffuse abdominal pain history of multiple episodes of nausea vomiting. History of being on marijuana. Patient presented today with having diffuse abdominal pain nausea vomiting extreme improved with a heating pad CT scan showed no acute evidence of obstruction abscess perforation. Patient symptom improved with droperidol IV fluids. Now tolerate fluids. Explained the patient the need to stop using marijuana and to closely follow up on an outpatient basis. Patient states understanding. Currently in stable condition. Differential Diagnosis Differential Diagnoses: The differential diagnosis associated with the presentation includes Obstruction, abscess, perforation, hyper emesis, gastroenteritis, appendicitis Admission/Observation Consideration of admission/observation: Escalation of care including admission/observation considered Symptom improved after nausea medication Lab Data [facility] Lab Attestation statement: I reviewed the patient's lab results. 07/23/23 12:16 07/23/23 12:16 Labs: Lab Results 07/23/23 07/23/23 07/23/23 Range/Units 12:16 12:17 12:47 WBC 13.2 H (4.8-10.8) X10*3/uL RBC 4.82 (4.20-5.50) X10*6/uL Hgb 12.8 (12.0-16.0) g/dl Hct 38.3 (37.0-47.0) % MCV 79.5 L (80.0-98.0) fL MCH 26.6 L (27.0-33.0) pg MCHC 33.4 (31.0-35.0) g/dl RDW 14.2 (11.0-16.0) % Plt Count 319 (160-400) X10*3/uL MPV 9.8 (9.4-12.3) fL Immature Gran % (Auto) 0.5 H (0.0-0.4) % Neut % (Auto) 81.2 H (45-73) % Lymph % (Auto) 12.0 L (20-40) % [place] % (Auto) 5.9 (2-11) % Eos % (Auto) 0.1 (0-4) % Baso % (Auto) 0.3 (0-2) % Lymph # (Auto) 1.6 (1.2-4.9) X10*3/uL [place] # (Auto) 0.8 (0.1-1.2) X10*3/uL Eos # (Auto) 0.0 (0.0-0.4) X10*3/uL Baso # (Auto) 0.0 (0.0-0.2) X10*3/uL Abs Immat Gran (auto) 0.07 H (0.00-0.03) X10*3/uL Absolute Neuts (auto) 10.7 H (2.0-8.3) x10*3/uL Absolute Nucleated RBC 0.000 (0.0-0.012) X10*3/uL Nucleated RBC % (auto) 0.0 (0.0-0.2) /100WBC PT 12.4 (11.1-13.3) SEC INR 1.0 (0.9-1.1) APTT 27.2 (26.0-36.4) SEC Sodium 137 (135-145) mmol/L Potassium 3.0 L (3.3-5.1) mmol/L Chloride 97 (96-108) mmol/L Carbon Dioxide 26 (22-29) mmol/L Anion Gap 17 (12-20) BUN 11 (9-16) mg/dL Creatinine 1.12 (0.5-1.4) mg/dL Estim Creat Clear Calc 60.2 Estimated GFR 52 Random Glucose 170 H (60-115) mg/dL Calcium 9.3 (8.4-10.2) mg/dL Magnesium 2.0 (1.6-2.6) mg/dL Total Bilirubin 1.0 (0.0-1.0) mg/dL AST 16 (5-31) U/L ALT 11 (0-31) U/L Alkaline Phosphatase 73 (39-117) U/L Total Protein 8.0 (6.5-8.0) g/dL Albumin 4.8 (3.5-5.0) g/dL Urine Color RED Urine Appearance Turbid Urine pH 6.5 (5.0-9.0) Ur Specific [place] 1.020 (1.005-1.025) Urine Protein 300 (3+) H (Neg-Trace) mg/dL Urine Glucose (UA) 250 H (Negative) mg/dL Urine Ketones Trace (Negative) mg/dL Urine Blood Large (3+) H (Negative) Urine Nitrite Positive H (Negative) Ur Leukocyte Esterase Moderate (2+) H (Negative) Urine RBC >20 H (0-2) /HPF Urine WBC 0-5 (0-5) /HPF Ur Squamous Epith Cells 0-2 (0-2) /HPF Urine Bacteria Trace (None Seen) Hyaline Casts 0-2 (0-2) /LPF Urine Test NEGATIVE (NEGATIVE) Urine Opiates Screen Not Detected (Not Detect) Urine Fentanyl Screen Not Detected (Not Detect) Ur Barbiturates Screen Not Detected (Not Detect) Ur Phencyclidine Scrn Not Detected (Not Detect) Ur Amphetamines Screen Not Detected (Not Detect) U Benzodiazepines Scrn Not Detected (Not Detect) Urine Cocaine Screen Not Detected (Not Detect) U Marijuana (THC) Screen POSITIVE H (Not Detect) Influenza Type A (PCR) NEGATIVE (Negative) Influenza Type B (PCR) NEGATIVE (Negative) RSV RNA Qual (PCR) NEGATIVE (Negative) SARS-CoV-2 RNA (RT-PCR) NEGATIVE (Negative) Independent Interpretation I performed an independent interpretation of an: CT Scan (No obstruction no abscess no perforation) Radiology Impression Discussion of test interpretation with radiology: I have reviewed the radiologist's reading. Prescription Management Nausea medication was given Chronic Conditions History of hyperemesis Social Determinants Patient?s care significantly limited by Social Determinants of Health including: Alcoholism and drug addiction in family Medications Administered Discontinued Medications Generic Name Dose Route Start Last Admin Trade Name Freq PRN Reason Stop Dose Admin Droperidol 0.625 mg 07/23/23 12:44 07/23/23 12:53 Droperidol 5 Mg/2 Ml Vial IVPUSH 07/23/23 12:45 0.625 mg ONCE ONE Administration Sodium Chloride 1,000 mls @ 999 mls/hr 07/23/23 12:45 07/23/23 14:50 Ns IV 07/23/23 13:45 Infused .Q1H1M SHERRY Infusion Sodium Chloride 1,000 mls @ 999 mls/hr 07/23/23 12:45 07/23/23 14:50 Ns IV 07/23/23 13:45 Infused .Q1H1M SHERRY Infusion Ketorolac Tromethamine 30 mg 07/23/23 12:38 07/23/23 12:53 Ketorolac Tromethamine 30 Mg/Ml Vial IVPUSH 07/23/23 12:39 30 mg ONCE ONE Administration Discharge Plan Discharge Clinical Impression: Hyperemesis Patient Disposition: Home, Self-Care Instructions: Acute Nausea and Vomiting (ED) Additional Instructions: Please stop using marijuana. Prescriptions: New ondansetron 4 mg tablet,disintegrating 4 mg PO TID PRN (Reason: nausea and vomiting) 5 Days Qty: 10 0RF ondansetron 4 mg tablet,disintegrating 4 mg PO TID PRN (Reason: nausea and vomiting) 5 Days Qty: 10 0RF Referrals: Physician,Unknown J [Primary Care Provider] - 07/26/23
[2023-07-23 12:45] LABS: Amphetamine Screen Urine Not Detected (Not Detect); Barbiturates, Urine Not Detected (Not Detect); Benzodiazepines Screen Urine Not Detected (Not Detect); Cannabinoid Screen Urine POSITIVE (Not Detect); Cocaine Screen Urine Not Detected (Not Detect); Fentanyl, urine Not Detected (Not Detect); Opiate Screen Urine Not Detected (Not Detect); Phencyclidine Screen Urine Not Detected (Not Detect)
[2023-07-23 12:52] LABS: Appearance Urine Turbid; Color Urine RED; Glucose Urine UA 250 mg/dL (Negative); Nitrite Urine Positive (Negative); PH 6.5 (5.0-9.0); UMIC TRIGGER UACC YES; Urine Blood Large (3+) (Negative); Urine Ketones Trace mg/dL (Negative); Urine Protein 300 (3+) mg/dL (Neg-Trace)
[2023-07-23 12:53] LABS: Leukocyte Esterase Urine Moderate (2+) (Negative)
[2023-07-23] MEDS: Ketorolac Tromethamine 30 MG/ML VIAL IVPUSH (12:53)
[2023-07-23] MEDS: 0.9 % Sodium Chloride 1,000 ML 999 ML IV ×2 (12:53)
[2023-07-23] MEDS: droPERidol 5 MG/2 ML VIAL 0.625 MG IVPUSH (12:53)
[2023-07-23 12:56] LABS: Urine Pregnancy NEGATIVE (NEGATIVE)
[2023-07-23 12:57] LABS: UPreg QC Valid YES
[2023-07-23 13:08] LABS: Bacteria Urine Trace (None Seen); Hyaline Casts Urine 0-2 /LPF (0-2); RBC Urine >20 /HPF (0-2); Squamous Epithelial Cell Urine 0-2 /HPF (0-2); UACC Culture Trigger YES; WBC Urine 0-5 /HPF (0-5)
[2023-07-23 13:12] LABS: Influenza A PCR NEGATIVE (Negative); Influenza B PCR NEGATIVE (Negative); Resp Syncy Virus RNA Qual PCR NEGATIVE (Negative); SARS COV2 PCR INHOUSE NEGATIVE (Negative)
[2023-07-23 14:00] VITALS: BP 145/78; PULSE 76; RESP 16; TEMP 37.3; O2SAT 100
== END 2023-07-23 15:34 | disposition home or self-care (01) ==
PROVIDERS: Physician Assistant Medical; Emergency Provider Emergency Medicine Emergency Medical Services
DX: R11.2 Nausea with vomiting, unspecified (principal); R10.9 Unspecified abdominal pain; F12.90 Cannabis use, unspecified, uncomplicated; Z20.822 Contact with and (suspected) exposure to COVID-19; Z20.828 Contact with and (suspected) exposure to other viral communicable diseases
CPT/HCPCS: 0241U; 74177; 80053; 80307; 81001; 81025; 83735; 85025; 85610; 85730; 87086; 96361; 96374; 96375; 99285; J1790; J1885